=== PATIENT | male | born 1990 | race Caucasian/White ===

== ENCOUNTER 2018-09-19 20:16 | Inpatient (IN) | payer BC, OTHER ==
[~2018-09-19] VITALS: Ht 180.3 cm; Wt 61.7 kg
[~2018-09-19 20:16] MED LIST: INSU100I17; INSU100I18
[2018-09-19] MEDS ORDERED: IV NORMAL SALINE 1000ML BAG 1,000 ML IV ONE ×2 (20:45→21:30)
[2018-09-19 21:10] LABS: BASO # 0.1 x10^3/uL (0.0-0.2); BASO % 0 % (0-3); EOS # 0.2 x10^3/uL (0.0-0.7); EOS % 1 % (0-3); HEMATOCRIT 50.1 % (39.0-53.0); LYMPH % 17 % (24-48); MEAN CORPUSCULAR HEMOGLOBIN 31 pg (25-35); MEAN CORPUSCULAR HGB CONC 34 g/dL (31-37); MEAN CORPUSCULAR VOLUME 90 fL (79-100); MONO # 1.2 x10^3/uL (0.0-1.1); MONO % 7 % (0-9); NEUT # 13.2 x10^3/uL (1.8-7.7); NEUT % 75 % (31-73); PLATELET COUNT 379 x10^3/uL (140-400); RED BLOOD COUNT 5.54 x10^6/uL (4.30-5.70); RED CELL DISTRIBUTION WIDTH 13.2 % (11.5-14.5); WHITE BLOOD COUNT 17.7 x10^3/uL (4.0-11.0)
[2018-09-19] MEDS ORDERED: FAMOTIDINE 20 MG/2 ML VIAL IVP ONE (21:15)
[2018-09-19] MEDS ORDERED: ONDANSETRON PF 4 MG/2 ML VIAL. IV ONE (21:15)
[2018-09-19] MEDS ORDERED: KETOROLAC 15 MG/ML VIAL. IV ONE (21:30)
[2018-09-19] MEDS ORDERED: INSULIN REGULAR 100 UNIT/ML 3ML VIAL. SQ ONE (21:30)
[2018-09-19 21:32] LABS: ALBUMIN 4.4 g/dL (3.4-5.0); ALBUMIN/GLOBULIN RATIO 1.5 (1.0-1.7); GFR 89.6; MAGNESIUM 1.8 mg/dL (1.8-2.4); POTASSIUM 5.2 mmol/L (3.5-5.1); TOTAL BILIRUBIN 0.5 mg/dL (0.2-1.0); TOTAL PROTEIN 7.3 g/dL (6.4-8.2)
[2018-09-19] MEDS ORDERED: IV 1/2 NORMAL SALINE 1,000 ML IV SCH (22:00)
[2018-09-19] MEDS ORDERED: ONDANSETRON PF 4 MG/2 ML VIAL. IV PRN (22:00)
[2018-09-19] MEDS ORDERED: POTASSIUM CHLORIDE 10MEQ 100 ML IV PRN ×3 (22:00)
[2018-09-19] MEDS ORDERED: INSULIN REGULAR VIAL 150 UNIT in 0.9 % SODIUM CHLORIDE 150ML 150 ML IV PRN (22:00)
--- NOTE | 2018-09-19 22:04 | PHYS DOC ---
Past Medical History Past Medical History: Diabetes-Type I Past Surgical History: Tonsillectomy Smoking: Cigarettes, 1 Pack Per Day Alcohol Use: Occasionally Drug Use: None Adult General Chief Complaint Chief Complaint: BLOOD SUGAR PROBLEM HPI HPI Mr. Cortes is a 28yo M w/ PMH significant for T1DM presents to the ED due to 1 day of generalized fatigue secondary to elevated blood sugar checked w/ relative's at-home glucose monitor. Admits to poor insulin management due to lack of insurance coverage for at-home glucose monitoring, but has recently obtained insurance through his . Last at-home insulin medication was taken at bedtime last night; has not taken insulin today due to not eating even though the patient admits to consuming an entire can of chicken noodle soup, which was later vomited up w/o visible blood in vomitus. Reports dry mouth, diarrhea, and 8/10 PHAN. Denies SOA, CP, UE/LE numbness or tingling b/l. Review of Systems Review of Systems Constitutional: Reports generalized fatigue. Denies fever or chills Eyes: Denies redness or eye pain HENT: Denies nasal congestion or sore throat Respiratory: Denies cough or shortness of breath Cardiovascular: Denies chest pain or palpitations GI: Reports nausea, vomiting, diarrhea, and abdominal pain. Denies hematochezia or constipation. : Reports polyuria. Denies dysuria or hematuria Musculoskeletal: Denies back pain or joint pain Integument: Denies rash or skin lesions Neurologic: Reports severe headache. Denies focal weakness or sensory changes Complete systems were reviewed and found to be within normal limits, except as documented in this note. Current Medications Current Medications Current Medications Medications (Trade) Dose Ordered Sig/Gwyn Start Time Stop Time Status Last Admin Dose Admin Dextrose/Sodium Chloride 1,000 ml @ 250 mls/hr Q4H 09/19/18 22:00 09/19/18 23:38 250 MLS/HR Famotidine (Pepcid Vial) 20 mg 1X ONCE 09/19/18 21:15 09/19/18 21:16 DC 09/19/18 21:07 20 MG Insulin Human Regular (HumuLIN R VIAL) 6 unit 1X ONCE 09/19/18 21:30 09/19/18 21:31 DC 09/19/18 21:42 6 UNIT Insulin Human Regular 150 unit/ Sodium Chloride 151.5 ml @ 0 mls/hr CONT PRN PRN 09/19/18 22:00 09/19/18 23:46 3.7 MLS/HR Ketorolac Tromethamine (Toradol 15mg Vial) 15 mg 1X ONCE 09/19/18 21:30 09/19/18 21:31 DC 09/19/18 21:39 15 MG Ondansetron HCl (Zofran) 4 mg PRN Q8HRS PRN 09/19/18 22:00 09/20/18 21:59 Potassium Chloride/Water 100 ml @ 100 mls/hr PRN Q1HR PRN 09/19/18 22:00 Sodium Chloride 1,000 ml @ 250 mls/hr Q4H 09/19/18 22:00 09/19/18 22:53 DC Allergies Allergies Allergies Coded Allergies Type Severity Reaction Last Updated Verified Penicillins Allergy Unknown 05/18/13 Yes Physical Exam Physical Exam Constitutional: quiet, thin, otherwise well developed, mild acute distress, non- toxic appearance HENT: Normocephalic, atraumatic, oropharynx dry, ketonic breathe appreciated Eyes: PERRL, EOMI, conjunctiva normal, no discharge Neck: no tenderness, supple Cardiovascular: Heart regular rate and rhythm w/o gallops, rubs, or murmurs. UE radial pulses intact 2/4 b/l. UE cap refill prolonged at ~3sec. Lungs & Thorax: CTAB and throughout w/o wheezing Abdomen: soft, non-distended, mild tenderness to palpation in all 4 quadrants, bowel sounds heard in all 4 quadrants, no ecchymosis Skin: cool, dry, no erythema, no rash Back: No tenderness, no CVA tenderness Extremities: No tenderness, no edema Neurologic: Alert and oriented X 3, normal motor function, normal sensory function, no focal deficits noted Psychologic: Affect normal, judgement normal, mood normal Current Patient Data Vital Signs Vital Signs Date Time Temp Pulse Resp B/P (MAP) Pulse Ox O2 Delivery O2 Flow Rate FiO2 09/19/18 21:38 86 19 123/74 (90) 100 Room Air 09/19/18 20:35 98.1 98.1 Lab Values Laboratory Tests Test 09/19/18 20:42 09/19/18 21:00 Glucose (Fingerstick) 278 mg/dL (70-99) H White Blood Count 17.7 x10^3/uL (4.0-11.0) H Red Blood Count 5.54 x10^6/uL (4.30-5.70) Hemoglobin 17.0 g/dL (13.0-17.5) Hematocrit 50.1 % (39.0-53.0) Mean Corpuscular Volume 90 fL (79-100) Mean Corpuscular Hemoglobin 31 pg (25-35) Mean Corpuscular Hemoglobin Concent 34 g/dL (31-37) Red Cell Distribution Width 13.2 % (11.5-14.5) Platelet Count 379 x10^3/uL (140-400) Neutrophils (%) (Auto) 75 % (31-73) H Lymphocytes (%) (Auto) 17 % (24-48) L Monocytes (%) (Auto) 7 % (0-9) Eosinophils (%) (Auto) 1 % (0-3) Basophils (%) (Auto) 0 % (0-3) Neutrophils # (Auto) 13.2 x10^3/uL (1.8-7.7) H Lymphocytes # (Auto) 3.0 x10^3/uL (1.0-4.8) Monocytes # (Auto) 1.2 x10^3/uL (0.0-1.1) H Eosinophils # (Auto) 0.2 x10^3/uL (0.0-0.7) Basophils # (Auto) 0.1 x10^3/uL (0.0-0.2) Sodium Level 135 mmol/L (136-145) L Potassium Level 5.2 mmol/L (3.5-5.1) H Chloride Level 99 mmol/L (98-107) Carbon Dioxide Level 7 mmol/L (21-32) *L Anion Gap 29 (6-14) H Blood Urea Nitrogen 12 mg/dL (8-26) Creatinine 1.0 mg/dL (0.7-1.3) Estimated GFR (Cockcroft-Gault) 89.6 BUN/Creatinine Ratio 12 (6-20) Glucose Level 295 mg/dL (70-99) H Calcium Level 9.0 mg/dL (8.5-10.1) Magnesium Level 1.8 mg/dL (1.8-2.4) Total Bilirubin 0.5 mg/dL (0.2-1.0) Aspartate Amino Transferase (AST) 21 U/L (15-37) Alanine Aminotransferase (ALT) 42 U/L (16-63) Alkaline Phosphatase 116 U/L (46-116) Total Protein 7.3 g/dL (6.4-8.2) Albumin 4.4 g/dL (3.4-5.0) Albumin/Globulin Ratio 1.5 (1.0-1.7) Lipase 74 U/L (73-393) Acetone Level Sm pos (NEG) Laboratory Tests 09/19/18 21:00 Laboratory Tests 09/19/18 21:00 EKG EKG [] Radiology/Procedures Radiology/Procedures [] Course & Med Decision Making Course & Med Decision Making Pertinent Labs studies reviewed. (See chart for details) Patient presented w/ generalized fatigue secondary to elevated glucose concerning for DKA. Acetone was mildly elevated w/ glucose of 278. 2L of NS administered in ED along with odansetron and pepcid and 6 units of SQ insulin. Patient requiring admission for further evaluation and treatment. Discussed with Dr. Ahn (hospitalist) who is in agreement with admission. Discussed findings and plan with patient and family, who acknowledge understanding and agreement. Dragon Disclaimer Dragon Disclaimer This electronic medical record was generated, in whole or in part, using a voice recognition dictation system. Departure Departure Impression: Primary Impression: DKA (diabetic ketoacidoses) Disposition: ADMITTED INPATIENT Admitting Physician: GARRET (Jimy) Condition: GUARDED Referrals: JEFFREY YI MD (PCP) Critical Care Time Critical care time was 30 minutes which includes time at bedside, spent in discussion of patient's care with specialists and/or family members, with interpretation of laboratory and/or radiological studies and is exclusive of procedures. Problem Qualifiers Primary Impression: DKA (diabetic ketoacidoses) Diabetes mellitus type: type 1 Diabetes mellitus complication detail: without coma Qualified Codes: E10.10 - Type 1 diabetes mellitus with keto acidosis without coma JOZEF FINNEGAN DO Sep 19, 2018 22:04
[2018-09-19 23:27] LABS: BASE EXCESS COOX -22 mmol/L (-3-3); HCO3 COOX 5 mmol/L (21-28); METHEMOGLOBIN 0.4 % (0.0-1.9); PO2 COOX 129 mmHg (85-108); SAT O2 COOX 98 % (92-99)
[2018-09-19 23:27] LABS: BLOOD UREA NITROGEN 12 mg/dL (8-26); CALCIUM 7.9 mg/dL (8.5-10.1); CHLORIDE 105 mmol/L (98-107); CREATININE 0.8 mg/dL (0.7-1.3); GLUCOSE 246 mg/dL (70-99); POTASSIUM 4.8 mmol/L (3.5-5.1); SODIUM 137 mmol/L (136-145)
[2018-09-19 23:30] LABS: PCO2 COOX < 15 mmHg (35-46)
[2018-09-19 23:32] LABS: ANION GAP 27 (6-14); CARBON DIOXIDE < 5 mmol/L (21-32)
[2018-09-19] MEDS: IV DEXTROSE 5 %-0.45 % NACL 1,000 ML IV SCH (23:38)
[2018-09-19 23:53] LABS: BILIRUBIN,URINE NEGATIVE (NEG); CLARITY,URINE CLEAR; COLOR,URINE YELLOW; NITRITE,URINE NEGATIVE (NEG); PROTEIN,URINE 100 mg/dL (NEG-TRACE); UROBILINOGEN,URINE 0.2 mg/dL (0.2 mg/dL)
[2018-09-19 23:57] LABS: SQUAMOUS EPITHELIAL CELL,UR OCC /LPF
[2018-09-19 23:58] LABS: AMORPHOUS SEDIMENT,UR PRESENT /HPF; BACTERIA,URINE 0 /HPF (0-FEW); GRANULAR CASTS,URINE FEW /HPF; RBC,URINE 0 /HPF (0-2); WBC,URINE OCC /HPF (0-4)
[2018-09-20] VITALS (19 sets, daily range): BP systolic 61–119; BP diastolic 54–75
[2018-09-20] MEDS: IV DEXTROSE 5 %-0.45 % NACL 1,000 ML IV SCH ×5 (02:00→18:00)
[2018-09-20] MEDS: IV NORMAL SALINE 1000ML BAG 1,000 ML IV SCH ×5 (02:00→18:00)
[2018-09-20] MEDS: POTASSIUM CHLORIDE 10MEQ 100 ML IV SCH ×6 (02:32→08:51)
[2018-09-20 05:18] LABS: CALCIUM 8.3 mg/dL (8.5-10.1); CREATININE 0.9 mg/dL (0.7-1.3); GFR 101.2; MAGNESIUM 1.7 mg/dL (1.8-2.4); PHOSPHORUS 2.6 mg/dL (2.6-4.7); POTASSIUM 3.7 mmol/L (3.5-5.1)
[2018-09-20] MEDS ORDERED: MAGNESIUM SULFATE 4GM 100 ML IV ONE (06:30)
[2018-09-20] MEDS: IV DEXTROSE 5% - 0.9 % NACL 1,000 ML IV SCH ×4 (06:41→18:14)
[2018-09-20 11:47] LABS: ALBUMIN 2.8 g/dL (3.4-5.0); ALBUMIN/GLOBULIN RATIO 1.2 (1.0-1.7); ALK PHOS 78 U/L (46-116); ALT (SGPT) 18 U/L (16-63); ANION GAP 11 (6-14); BLOOD UREA NITROGEN 8 mg/dL (8-26); BUN/CREATININE RATIO 13 (6-20); CALCIUM 7.9 mg/dL (8.5-10.1); CARBON DIOXIDE 19 mmol/L (21-32); CHLORIDE 112 mmol/L (98-107); CREATININE 0.6 mg/dL (0.7-1.3); GFR 161.6; GLUCOSE 219 mg/dL (70-99); MAGNESIUM 2.3 mg/dL (1.8-2.4); PHOSPHORUS 2.5 mg/dL (2.6-4.7); POTASSIUM 3.4 mmol/L (3.5-5.1); SODIUM 142 mmol/L (136-145); TOTAL BILIRUBIN 0.2 mg/dL (0.2-1.0); TOTAL PROTEIN 5.1 g/dL (6.4-8.2)
[2018-09-20 12:05] LABS: AST (SGOT) < 5 U/L (15-37)
--- NOTE | 2018-09-20 12:57 | PDOC ---
[employer] PROGRESS NOTE Chief Complaint Chief Complaint DKA Fatigue secondary to elevated blood sugar Blood in vomitus TIDM History of Present Illness History of Present Illness 09/20/18 Pt seen in ICU VSS Potassium trending down (5.2 09/19, 3.7 09/20) Pt sitting up in bed DW RN Vitals/I&O Vitals/I&O: Vital Signs Date Time Temp Pulse Resp B/P (MAP) Pulse Ox O2 Delivery O2 Flow Rate FiO2 09/20/18 09:00 74 11 95/57 (70) 97 Room Air 09/20/18 04:00 98.7 98.7 I & O 09/19/18 09/19/18 09/20/18 14:59 22:59 06:59 Intake Total 2000 ml 2615.3 ml Output Total 500 ml Balance 2000 ml 2115.3 ml Physical Exam General: Alert, No acute distress Heart: Regular rate, No murmurs Lungs: Clear Abdomen: Normal bowel sounds, No hepatosplenomegaly Extremities: No edema, Normal pulses Skin: No rashes, No significant lesion Labs Labs: Laboratory Tests Test 09/19/18 20:42 09/19/18 21:00 09/19/18 22:28 09/19/18 23:08 Glucose (Fingerstick) 278 mg/dL (70-99) 236 mg/dL (70-99) White Blood Count 17.7 x10^3/uL (4.0-11.0) Red Blood Count 5.54 x10^6/uL (4.30-5.70) Hemoglobin 17.0 g/dL (13.0-17.5) Hematocrit 50.1 % (39.0-53.0) Mean Corpuscular Volume 90 fL (79-100) Mean Corpuscular Hemoglobin 31 pg (25-35) Mean Corpuscular Hemoglobin Concent 34 g/dL (31-37) Red Cell Distribution Width 13.2 % (11.5-14.5) Platelet Count 379 x10^3/uL (140-400) Neutrophils (%) (Auto) 75 % (31-73) Lymphocytes (%) (Auto) 17 % (24-48) Monocytes (%) (Auto) 7 % (0-9) Eosinophils (%) (Auto) 1 % (0-3) Basophils (%) (Auto) 0 % (0-3) Neutrophils # (Auto) 13.2 x10^3/uL (1.8-7.7) Lymphocytes # (Auto) 3.0 x10^3/uL (1.0-4.8) Monocytes # (Auto) 1.2 x10^3/uL (0.0-1.1) Eosinophils # (Auto) 0.2 x10^3/uL (0.0-0.7) Basophils # (Auto) 0.1 x10^3/uL (0.0-0.2) Sodium Level 135 mmol/L (136-145) 137 mmol/L (136-145) Potassium Level 5.2 mmol/L (3.5-5.1) 4.8 mmol/L (3.5-5.1) Chloride Level 99 mmol/L (98-107) 105 mmol/L (98-107) Carbon Dioxide Level 7 mmol/L (21-32) < 5 mmol/L (21-32) Anion Gap 29 (6-14) 27 (6-14) Blood Urea Nitrogen 12 mg/dL (8-26) 12 mg/dL (8-26) Creatinine 1.0 mg/dL (0.7-1.3) 0.8 mg/dL (0.7-1.3) Estimated GFR (Cockcroft-Gault) 89.6 116.0 BUN/Creatinine Ratio 12 (6-20) Glucose Level 295 mg/dL (70-99) 246 mg/dL (70-99) Calcium Level 9.0 mg/dL (8.5-10.1) 7.9 mg/dL (8.5-10.1) Magnesium Level 1.8 mg/dL (1.8-2.4) Total Bilirubin 0.5 mg/dL (0.2-1.0) Aspartate Amino Transf (AST/SGOT) 21 U/L (15-37) Alanine Aminotransferase (ALT/SGPT) 42 U/L (16-63) Alkaline Phosphatase 116 U/L (46-116) Total Protein 7.3 g/dL (6.4-8.2) Albumin 4.4 g/dL (3.4-5.0) Albumin/Globulin Ratio 1.5 (1.0-1.7) Lipase 74 U/L (73-393) Acetone Level Sm pos (NEG) Test 09/19/18 23:15 09/19/18 23:25 09/20/18 00:55 09/20/18 02:00 Urine Collection Type Unknown Urine Color Yellow Urine Clarity Clear Urine pH 5.0 Urine Specific [place] 1.025 Urine Protein 100 mg/dL (NEG-TRACE) Urine Glucose (UA) >=1000 mg/dL (NEG) Urine Ketones (Stick) >=80 mg/dL (NEG) Urine Blood Trace (NEG) Urine Nitrite Negative (NEG) Urine Bilirubin Negative (NEG) Urine Urobilinogen Dipstick 0.2 mg/dL (0.2 mg/dL) Urine Leukocyte Esterase Negative (NEG) Urine RBC 0 /HPF (0-2) Urine WBC Occ /HPF (0-4) Urine Squamous Epithelial Cells Occ /LPF Urine Amorphous Sediment Present /HPF Urine Bacteria 0 /HPF (0-FEW) Urine Granular Casts Few /HPF Urine Mucus Mod /LPF O2 Saturation 98 % (92-99) Arterial Blood pH 7.13 (7.35-7.45) Arterial Blood pCO2 at Patient Temp < 15 mmHg (35-46) Arterial Blood pO2 at Patient Temp 129 mmHg (85-108) Arterial Blood HCO3 5 mmol/L (21-28) Arterial Blood Base Excess -22 mmol/L (-3-3) Oxyhemoglobin 97.0 % Methemoglobin 0.4 % (0.0-1.9) Carbon Monoxide, Quantitative 0.3 % (0.0-1.9) FiO2 21 Glucose (Fingerstick) 237 mg/dL (70-99) 281 mg/dL (70-99) Test 09/20/18 03:01 09/20/18 04:05 09/20/18 04:09 09/20/18 05:14 Glucose (Fingerstick) 295 mg/dL (70-99) 265 mg/dL (70-99) 251 mg/dL (70-99) Sodium Level 136 mmol/L (136-145) Potassium Level 3.7 mmol/L (3.5-5.1) Chloride Level 107 mmol/L (98-107) Carbon Dioxide Level 12 mmol/L (21-32) Anion Gap 17 (6-14) Blood Urea Nitrogen 10 mg/dL (8-26) Creatinine 0.9 mg/dL (0.7-1.3) Estimated GFR (Cockcroft-Gault) 101.2 Glucose Level 293 mg/dL (70-99) Calcium Level 8.3 mg/dL (8.5-10.1) Phosphorus Level 2.6 mg/dL (2.6-4.7) Magnesium Level 1.7 mg/dL (1.8-2.4) Test 09/20/18 06:25 09/20/18 07:35 09/20/18 08:48 09/20/18 11:20 Glucose (Fingerstick) 170 mg/dL (70-99) 163 mg/dL (70-99) 171 mg/dL (70-99) Sodium Level 142 mmol/L (136-145) Potassium Level 3.4 mmol/L (3.5-5.1) Chloride Level 112 mmol/L (98-107) Carbon Dioxide Level 19 mmol/L (21-32) Anion Gap 11 (6-14) Blood Urea Nitrogen 8 mg/dL (8-26) Creatinine 0.6 mg/dL (0.7-1.3) Estimated GFR (Cockcroft-Gault) 161.6 BUN/Creatinine Ratio 13 (6-20) Glucose Level 219 mg/dL (70-99) Calcium Level 7.9 mg/dL (8.5-10.1) Phosphorus Level 2.5 mg/dL (2.6-4.7) Magnesium Level 2.3 mg/dL (1.8-2.4) Total Bilirubin 0.2 mg/dL (0.2-1.0) Aspartate Amino Transf (AST/SGOT) < 5 U/L (15-37) Alanine Aminotransferase (ALT/SGPT) 18 U/L (16-63) Alkaline Phosphatase 78 U/L (46-116) Total Protein 5.1 g/dL (6.4-8.2) Albumin 2.8 g/dL (3.4-5.0) Albumin/Globulin Ratio 1.2 (1.0-1.7) Review of Systems Review of Systems: CO fatigue CO PHAN Assessment and Plan Assessmemt and Plan 09/20/18 Assessment DKA Fatigue secondary to elevated blood sugar Blood in vomitus TIDM Plan ICU monitoring IV fluids IV insulin Follow anion gap Full code Comment Review of Relevant I have reviewed the following items cinthia (where applicable) has been applied. Medications: Current Medications Medications (Trade) Dose Ordered Sig/Gwyn Route PRN Reason Start Time Stop Time Status Last Admin Dose Admin Ondansetron HCl (Zofran) 4 mg 1X ONCE IV 09/19/18 21:15 09/19/18 21:16 DC 09/19/18 21:05 Famotidine (Pepcid Vial) 20 mg 1X ONCE IVP 09/19/18 21:15 09/19/18 21:16 DC 09/19/18 21:07 Sodium Chloride 1,000 ml @ 1,000 mls/hr 1X ONCE IV 09/19/18 20:45 09/19/18 21:44 DC 09/19/18 21:09 Ketorolac Tromethamine (Toradol 15mg Vial) 15 mg 1X ONCE IV 09/19/18 21:30 09/19/18 21:31 DC 09/19/18 21:39 Sodium Chloride 1,000 ml @ 1,000 mls/hr 1X ONCE IV 09/19/18 21:30 09/19/18 22:29 DC 09/19/18 21:44 Insulin Human Regular (HumuLIN R VIAL) 6 unit 1X ONCE SQ 09/19/18 21:30 09/19/18 21:31 DC 09/19/18 21:42 Dextrose/Sodium Chloride 1,000 ml @ 250 mls/hr Q4H IV 09/19/18 22:00 09/19/18 23:38 Insulin Human Regular 150 unit/ Sodium Chloride 151.5 ml @ 0 mls/hr CONT PRN PRN IV PER PROTOCOL 09/19/18 22:00 09/19/18 23:46 Ondansetron HCl (Zofran) 4 mg PRN Q8HRS PRN IV NAUSEA/VOMITING 09/19/18 22:00 09/20/18 21:59 09/20/18 06:22 Potassium Chloride/Water 100 ml @ 100 mls/hr Q1H IV 09/20/18 01:30 09/20/18 03:29 DC 09/20/18 05:12 Sodium Chloride 1,000 ml @ 250 mls/hr Q4H IV 09/20/18 02:00 09/20/18 02:00 Potassium Chloride/Water 100 ml @ 100 mls/hr Q1H IV 09/20/18 06:30 09/20/18 10:29 DC 09/20/18 08:51 Magnesium Sulfate/ Dextrose 100 ml @ 25 mls/hr 1X ONCE IV 09/20/18 06:30 09/20/18 10:29 DC 09/20/18 07:14 Dextrose/Sodium Chloride 1,000 ml @ 250 mls/hr Q4H IV 09/20/18 06:30 09/20/18 06:41 COURTNEY BROWN III DO Sep 20, 2018 12:57
[2018-09-20] MEDS ORDERED: DEXTROSE 50% 25 GM / 50ML DISP.SYRIN. IV PRN (13:15)
[2018-09-20] MEDS: INSULIN LISPRO 300 UNITS/3 ML INSULN.PEN. SQ SCH ×2 (13:23→17:00)
--- NOTE | 2018-09-20 16:04 | NUR ---
SS following for discharge planning. SS reviewed pt chart. Pt is from home with spouse and is currently on room air. No discharge needs noted at this time. SS will continue to follow for discharge planning.
[2018-09-20] MEDS ORDERED: ACETAMINOPHEN 325 MG TABLET. PO PRN (17:30)
[2018-09-20] MEDS ORDERED: INSULIN GLARGINE 300 UNITS/3 ML INSULN.PEN. SQ SCH (21:00)
[2018-09-20] MEDS ORDERED: INSULIN LISPRO 300 UNITS/3 ML INSULN.PEN. SQ ONE (21:30)
[2018-09-21 03:00] VITALS: BP 111/70
[2018-09-21 07:00] VITALS: BP 115/69
[2018-09-21] MEDS: INSULIN LISPRO 300 UNITS/3 ML INSULN.PEN. SQ SCH ×4 (08:00→11:59)
[2018-09-21 08:04] LABS: BASO % 0 % (0-3); EOS # 0.2 x10^3/uL (0.0-0.7); EOS % 3 % (0-3); HEMATOCRIT 39.1 % (39.0-53.0); HEMOGLOBIN 13.3 g/dL (13.0-17.5); LYMPH # 3.2 x10^3/uL (1.0-4.8); LYMPH % 47 % (24-48); MEAN CORPUSCULAR HEMOGLOBIN 30 pg (25-35); MEAN CORPUSCULAR HGB CONC 34 g/dL (31-37); MEAN CORPUSCULAR VOLUME 89 fL (79-100); MONO # 0.7 x10^3/uL (0.0-1.1); MONO % 10 % (0-9); NEUT # 2.7 x10^3/uL (1.8-7.7); NEUT % 40 % (31-73); PLATELET COUNT 248 x10^3/uL (140-400); RED CELL DISTRIBUTION WIDTH 13.8 % (11.5-14.5); WHITE BLOOD COUNT 6.8 x10^3/uL (4.0-11.0)
--- NOTE | 2018-09-21 08:47 | NUR ---
IP: Pt is mrsa screen + requiring contact precautions.
[2018-09-21 09:18] LABS: CALCIUM 8.1 mg/dL (8.5-10.1); CREATININE 0.5 mg/dL (0.7-1.3); GFR 199.5; POTASSIUM 3.2 mmol/L (3.5-5.1)
[2018-09-21] MEDS ORDERED: INSU100I13 SQ (09:41)
[2018-09-21] MEDS ORDERED: INSU100I11 SQ (09:41)
[2018-09-21 11:00] VITALS: BP 92/58
--- NOTE | 2018-09-21 11:40 | PDOC3 ---
Discharge Summary Visit Information Date of Admission: Sep 19, 2018 Date of Discharge: Sep 21, 2018 Admitting Diagnosis Comment: status post DKA Severe metabolic acidosis secondary to above Type I DM Brief Hospital Course Allergies Allergies Coded Allergies Type Severity Reaction Last Updated Verified I S O L A T I O N *CONTACT* Allergy Unknown 09/21/18 Yes Penicillins Allergy Unknown 05/18/13 Yes Vital Signs Vital Signs Date Time Temp Pulse Resp B/P (MAP) Pulse Ox O2 Delivery O2 Flow Rate FiO2 09/21/18 08:00 Room Air 09/21/18 07:00 98.4 69 18 115/69 (84) 99 98.4 Lab Results Laboratory Tests Test 09/19/18 20:42 09/19/18 21:00 09/19/18 22:28 09/19/18 23:08 Glucose (Fingerstick) 278 mg/dL (70-99) 236 mg/dL (70-99) White Blood Count 17.7 x10^3/uL (4.0-11.0) Red Blood Count 5.54 x10^6/uL (4.30-5.70) Hemoglobin 17.0 g/dL (13.0-17.5) Hematocrit 50.1 % (39.0-53.0) Mean Corpuscular Volume 90 fL (79-100) Mean Corpuscular Hemoglobin 31 pg (25-35) Mean Corpuscular Hemoglobin Concent 34 g/dL (31-37) Red Cell Distribution Width 13.2 % (11.5-14.5) Platelet Count 379 x10^3/uL (140-400) Neutrophils (%) (Auto) 75 % (31-73) Lymphocytes (%) (Auto) 17 % (24-48) Monocytes (%) (Auto) 7 % (0-9) Eosinophils (%) (Auto) 1 % (0-3) Basophils (%) (Auto) 0 % (0-3) Neutrophils # (Auto) 13.2 x10^3/uL (1.8-7.7) Lymphocytes # (Auto) 3.0 x10^3/uL (1.0-4.8) Monocytes # (Auto) 1.2 x10^3/uL (0.0-1.1) Eosinophils # (Auto) 0.2 x10^3/uL (0.0-0.7) Basophils # (Auto) 0.1 x10^3/uL (0.0-0.2) Sodium Level 135 mmol/L (136-145) 137 mmol/L (136-145) Potassium Level 5.2 mmol/L (3.5-5.1) 4.8 mmol/L (3.5-5.1) Chloride Level 99 mmol/L (98-107) 105 mmol/L (98-107) Carbon Dioxide Level 7 mmol/L (21-32) < 5 mmol/L (21-32) Anion Gap 29 (6-14) 27 (6-14) Blood Urea Nitrogen 12 mg/dL (8-26) 12 mg/dL (8-26) Creatinine 1.0 mg/dL (0.7-1.3) 0.8 mg/dL (0.7-1.3) Estimated GFR (Cockcroft-Gault) 89.6 116.0 BUN/Creatinine Ratio 12 (6-20) Glucose Level 295 mg/dL (70-99) 246 mg/dL (70-99) Calcium Level 9.0 mg/dL (8.5-10.1) 7.9 mg/dL (8.5-10.1) Magnesium Level 1.8 mg/dL (1.8-2.4) Total Bilirubin 0.5 mg/dL (0.2-1.0) Aspartate Amino Transf (AST/SGOT) 21 U/L (15-37) Alanine Aminotransferase (ALT/SGPT) 42 U/L (16-63) Alkaline Phosphatase 116 U/L (46-116) Total Protein 7.3 g/dL (6.4-8.2) Albumin 4.4 g/dL (3.4-5.0) Albumin/Globulin Ratio 1.5 (1.0-1.7) Lipase 74 U/L (73-393) Acetone Level Sm pos (NEG) Test 09/19/18 23:15 09/19/18 23:25 09/20/18 00:55 09/20/18 02:00 Urine Collection Type Unknown Urine Color Yellow Urine Clarity Clear Urine pH 5.0 Urine Specific [place] 1.025 Urine Protein 100 mg/dL (NEG-TRACE) Urine Glucose (UA) >=1000 mg/dL (NEG) Urine Ketones (Stick) >=80 mg/dL (NEG) Urine Blood Trace (NEG) Urine Nitrite Negative (NEG) Urine Bilirubin Negative (NEG) Urine Urobilinogen Dipstick 0.2 mg/dL (0.2 mg/dL) Urine Leukocyte Esterase Negative (NEG) Urine RBC 0 /HPF (0-2) Urine WBC Occ /HPF (0-4) Urine Squamous Epithelial Cells Occ /LPF Urine Amorphous Sediment Present /HPF Urine Bacteria 0 /HPF (0-FEW) Urine Granular Casts Few /HPF Urine Mucus Mod /LPF O2 Saturation 98 % (92-99) Arterial Blood pH 7.13 (7.35-7.45) Arterial Blood pCO2 at Patient Temp < 15 mmHg (35-46) Arterial Blood pO2 at Patient Temp 129 mmHg (85-108) Arterial Blood HCO3 5 mmol/L (21-28) Arterial Blood Base Excess -22 mmol/L (-3-3) Oxyhemoglobin 97.0 % Methemoglobin 0.4 % (0.0-1.9) Carbon Monoxide, Quantitative 0.3 % (0.0-1.9) FiO2 21 Glucose (Fingerstick) 237 mg/dL (70-99) 281 mg/dL (70-99) Test 09/20/18 03:01 09/20/18 04:05 09/20/18 04:09 09/20/18 05:00 Glucose (Fingerstick) 295 mg/dL (70-99) 265 mg/dL (70-99) Sodium Level 136 mmol/L (136-145) Potassium Level 3.7 mmol/L (3.5-5.1) Chloride Level 107 mmol/L (98-107) Carbon Dioxide Level 12 mmol/L (21-32) Anion Gap 17 (6-14) Blood Urea Nitrogen 10 mg/dL (8-26) Creatinine 0.9 mg/dL (0.7-1.3) Estimated GFR (Cockcroft-Gault) 101.2 Glucose Level 293 mg/dL (70-99) Calcium Level 8.3 mg/dL (8.5-10.1) Phosphorus Level 2.6 mg/dL (2.6-4.7) Magnesium Level 1.7 mg/dL (1.8-2.4) Nasal Screen MRSA (PCR) Positive (Negative) Test 09/20/18 05:14 09/20/18 06:25 09/20/18 07:35 09/20/18 08:48 Glucose (Fingerstick) 251 mg/dL (70-99) 170 mg/dL (70-99) 163 mg/dL (70-99) 171 mg/dL (70-99) Test 09/20/18 09:57 09/20/18 11:07 09/20/18 11:20 09/20/18 12:40 Glucose (Fingerstick) 206 mg/dL (70-99) 190 mg/dL (70-99) 177 mg/dL (70-99) Sodium Level 142 mmol/L (136-145) Potassium Level 3.4 mmol/L (3.5-5.1) Chloride Level 112 mmol/L (98-107) Carbon Dioxide Level 19 mmol/L (21-32) Anion Gap 11 (6-14) Blood Urea Nitrogen 8 mg/dL (8-26) Creatinine 0.6 mg/dL (0.7-1.3) Estimated GFR (Cockcroft-Gault) 161.6 BUN/Creatinine Ratio 13 (6-20) Glucose Level 219 mg/dL (70-99) Calcium Level 7.9 mg/dL (8.5-10.1) Phosphorus Level 2.5 mg/dL (2.6-4.7) Magnesium Level 2.3 mg/dL (1.8-2.4) Total Bilirubin 0.2 mg/dL (0.2-1.0) Aspartate Amino Transf (AST/SGOT) < 5 U/L (15-37) Alanine Aminotransferase (ALT/SGPT) 18 U/L (16-63) Alkaline Phosphatase 78 U/L (46-116) Total Protein 5.1 g/dL (6.4-8.2) Albumin 2.8 g/dL (3.4-5.0) Albumin/Globulin Ratio 1.2 (1.0-1.7) Test 09/20/18 13:21 09/20/18 14:20 09/20/18 16:54 09/20/18 20:49 Glucose (Fingerstick) 169 mg/dL (70-99) 206 mg/dL (70-99) 125 mg/dL (70-99) 447 mg/dL (70-99) Test 09/20/18 22:35 09/21/18 06:35 09/21/18 07:55 Glucose (Fingerstick) 321 mg/dL (70-99) 132 mg/dL (70-99) White Blood Count 6.8 x10^3/uL (4.0-11.0) Red Blood Count 4.40 x10^6/uL (4.30-5.70) Hemoglobin 13.3 g/dL (13.0-17.5) Hematocrit 39.1 % (39.0-53.0) Mean Corpuscular Volume 89 fL (79-100) Mean Corpuscular Hemoglobin 30 pg (25-35) Mean Corpuscular Hemoglobin Concent 34 g/dL (31-37) Red Cell Distribution Width 13.8 % (11.5-14.5) Platelet Count 248 x10^3/uL (140-400) Neutrophils (%) (Auto) 40 % (31-73) Lymphocytes (%) (Auto) 47 % (24-48) Monocytes (%) (Auto) 10 % (0-9) Eosinophils (%) (Auto) 3 % (0-3) Basophils (%) (Auto) 0 % (0-3) Neutrophils # (Auto) 2.7 x10^3/uL (1.8-7.7) Lymphocytes # (Auto) 3.2 x10^3/uL (1.0-4.8) Monocytes # (Auto) 0.7 x10^3/uL (0.0-1.1) Eosinophils # (Auto) 0.2 x10^3/uL (0.0-0.7) Basophils # (Auto) 0.0 x10^3/uL (0.0-0.2) Sodium Level 146 mmol/L (136-145) Potassium Level 3.2 mmol/L (3.5-5.1) Chloride Level 112 mmol/L (98-107) Carbon Dioxide Level 25 mmol/L (21-32) Anion Gap 9 (6-14) Blood Urea Nitrogen 10 mg/dL (8-26) Creatinine 0.5 mg/dL (0.7-1.3) Estimated GFR (Cockcroft-Gault) 199.5 Glucose Level 149 mg/dL (70-99) Calcium Level 8.1 mg/dL (8.5-10.1) Laboratory Tests Test 09/20/18 12:40 09/20/18 13:21 09/20/18 14:20 09/20/18 16:54 Glucose (Fingerstick) 177 mg/dL (70-99) 169 mg/dL (70-99) 206 mg/dL (70-99) 125 mg/dL (70-99) Test 09/20/18 20:49 09/20/18 22:35 09/21/18 06:35 09/21/18 07:55 Glucose (Fingerstick) 447 mg/dL (70-99) 321 mg/dL (70-99) 132 mg/dL (70-99) White Blood Count 6.8 x10^3/uL (4.0-11.0) Red Blood Count 4.40 x10^6/uL (4.30-5.70) Hemoglobin 13.3 g/dL (13.0-17.5) Hematocrit 39.1 % (39.0-53.0) Mean Corpuscular Volume 89 fL (79-100) Mean Corpuscular Hemoglobin 30 pg (25-35) Mean Corpuscular Hemoglobin Concent 34 g/dL (31-37) Red Cell Distribution Width 13.8 % (11.5-14.5) Platelet Count 248 x10^3/uL (140-400) Neutrophils (%) (Auto) 40 % (31-73) Lymphocytes (%) (Auto) 47 % (24-48) Monocytes (%) (Auto) 10 % (0-9) Eosinophils (%) (Auto) 3 % (0-3) Basophils (%) (Auto) 0 % (0-3) Neutrophils # (Auto) 2.7 x10^3/uL (1.8-7.7) Lymphocytes # (Auto) 3.2 x10^3/uL (1.0-4.8) Monocytes # (Auto) 0.7 x10^3/uL (0.0-1.1) Eosinophils # (Auto) 0.2 x10^3/uL (0.0-0.7) Basophils # (Auto) 0.0 x10^3/uL (0.0-0.2) Sodium Level 146 mmol/L (136-145) Potassium Level 3.2 mmol/L (3.5-5.1) Chloride Level 112 mmol/L (98-107) Carbon Dioxide Level 25 mmol/L (21-32) Anion Gap 9 (6-14) Blood Urea Nitrogen 10 mg/dL (8-26) Creatinine 0.5 mg/dL (0.7-1.3) Estimated GFR (Cockcroft-Gault) 199.5 Glucose Level 149 mg/dL (70-99) Calcium Level 8.1 mg/dL (8.5-10.1) Brief Hospital Course Mr. Cortes is a 28 old male type I diabetic on 15 daily at bedtime and I'm unsure of his mealtime coverage - comes in in severe DKA with bicarbonate in the 1 figure numbers. ICU bed,DKA, protocol, insulin drip. Better after 2 midnights stay. The regimen that works for him in the hospital was 20 units daily at bedtime and 10 units 3 times a day lispro. We'll I send home on these with glucometer test strips , novofine needles etc. Discharge instructions follow-up PCP regarding type I DM meds dc < 30 Discharge Information Condition at Discharge: Improved, Stable Follow Up: Weeks (pcp 4 weeks re type 1 dm) Disposition/Orders: D/C to Home Scheduled Insulin Aspart (Novolog Flexpen) 100 Unit/1 Ml Insuln.pen, TID, (Reported) Entered as Reported by: GIBRAN QUIJANO on 05/18/131741 Last Action: Reviewed on 09/21/18939 by NADEEM YUN Insulin Detemir (Levemir Flexpen) 100 Unit/1 Ml Insuln.pen, HS, (Reported) Entered as Reported by: GIBRAN QUIJANO on 05/18/131741 Last Action: Reviewed on 09/21/18939 by NADEEM YUN Insulin Glargine,Hum.rec.anlog (Lantus Solostar) 100 Unit/1 Ml Insuln.pen, 20 UNITS SQ QHS for dm 1 for 30 Days Prescribed by: NADEEM YUN on 09/21/18940 Insulin Lispro (Humalog) 100 Unit/1 Ml Insuln.pen, 10 UNITS SQ TIDWMEALS for dm1 for 30 Days Prescribed by: NADEEM YUN on 09/21/18940 NADEEM YUN MD Sep 21, 2018 11:40
--- NOTE | 2018-09-21 13:13 | NUR ---
Pt left unit at approx 1305, discharge instructions given. Pt was accompanied by and children. Pt left via private vehicle, stable upon discharge.
== END 2018-09-21 13:10 | disposition home or self-care (01) | DRG 638 ==
LOC: ER 20:16 → 1 WEST ICU 22:05 → 5 SOUTH 09-20 16:30
PROVIDERS: ADMIT Internal Medicine; ATTEND Internal Medicine
DX: E10.10 Type 1 diabetes mellitus with ketoacidosis without coma (principal); K92.0 Hematemesis; Z79.4 Long term (current) use of insulin; Z87.891 Personal history of nicotine dependence
CPT/HCPCS: 36415; 36600; 80048; 80053; 81001; 82010; 82805; 82962; 83690; 83735; 83930; 84100; 85025; 87641; J1815; J1885; J2405; J3475; J3480; J3490; J7030; J7042; 99285-25

== ENCOUNTER 2019-04-08 10:31 | Inpatient (IN) | payer SELFPAY ==
[~2019-04-08] VITALS: Ht 180.3 cm; Wt 62.9 kg
[~2019-04-08 10:31] MED LIST changes: +INSU100I11 SQ; +INSU100I13 SQ
--- NOTE | 2019-04-08 11:37 | PHYS DOC ---
Past Medical History Past Medical History: Diabetes-Type I Past Surgical History: Tonsillectomy Smoking Status: Current Every Day Smoker Alcohol Use: Occasionally Drug Use: None Adult General Chief Complaint Chief Complaint: MULTIPLE COMPLAINTS HPI HPI Patient is a 29 year old male who presents with fatigue, nausea, vomiting. Patient history of type 1 diabetes, reports he has been doing okay taking his insulin during the day, however he has missed his evening dose the past few days. States he does not have a meter at home to test his blood sugars and has not been testing. States yesterday was his anniversary, they went out to eat, and then 0300 today he started to feel nauseous, vomiting. Denies EtOH use. States he has had some diarrhea as well. States fatigue. States some chest discomfort which started the same time. Denies abdominal pain. Denies visual changes. Review of Systems Review of Systems Constitutional: Denies fever or chills reports fatigue [] Eyes: Denies change in visual acuity, redness, or eye pain [] HENT: Denies nasal congestion or sore throat [] Respiratory: Denies cough or shortness of breath [] Cardiovascular: No additional information not addressed in HPI [] GI: Reports abdominal pain, nausea, vomiting, diarrhea. Denies bloody stools. [] : Denies dysuria or hematuria [] Musculoskeletal: Denies back pain or joint pain [] Integument: Denies rash or skin lesions [] Neurologic: Denies headache, focal weakness or sensory changes [] Endocrine: Denies polyuria or polydipsia [] All other systems were reviewed and found to be within normal limits, except as documented in this note. Current Medications Current Medications Current Medications Medications (Trade) Dose Ordered Sig/Gwyn Start Time Stop Time Status Last Admin Dose Admin Insulin Human Regular 100 ml @ 0 mls/hr CONT PRN PRN 04/08/19 12:30 04/08/19 13:48 DC 04/08/19 13:48 3.5 MLS/HR Ondansetron HCl (Zofran) 4 mg 1X ONCE 04/08/19 11:45 04/08/19 11:46 DC 04/08/19 12:07 4 MG Sodium Chloride 1,000 ml @ 1,000 mls/hr Q1H 04/08/19 12:23 04/08/19 13:22 DC 04/08/19 13:38 1,000 MLS/HR Allergies Allergies Allergies Coded Allergies Type Severity Reaction Last Updated Verified I S O L A T I O N *CONTACT* Allergy Unknown 09/21/18 Yes Penicillins Allergy Unknown 05/18/13 Yes Physical Exam Physical Exam Constitutional: Well developed, well nourished, appears uncomfortable, non-toxic appearance. [] HENT: Normocephalic, atraumatic, bilateral external ears normal, oropharynx moist, no oral exudates, nose normal. [] Eyes: PERRLA, EOMI, conjunctiva normal, no discharge. [] Neck: Normal range of motion, no tenderness, supple, no stridor. [] Cardiovascular:Heart rate regular and tachycardic rhythm, no murmur [] Lungs & Thorax: Bilateral breath sounds clear to auscultation [] Abdomen: Bowel sounds normal, soft, no tenderness, no masses, no pulsatile masses. [] Skin: Warm, dry, no erythema, no rash. [] Back: No tenderness, no CVA tenderness. [] Extremities: No tenderness, no cyanosis, no clubbing, ROM intact, no edema. [] Neurologic: Alert and oriented X 3, normal motor function, normal sensory func tion, no focal deficits noted. [] Psychologic: Affect normal, judgement normal, mood normal. [] Current Patient Data Vital Signs Vital Signs Date Time Temp Pulse Resp B/P (MAP) Pulse Ox O2 Delivery O2 Flow Rate FiO2 04/08/19 11:23 99.1 111 18 125/86 (99) 99 Room Air 99.1 Lab Values Laboratory Tests Test 04/08/19 10:34 04/08/19 11:31 Glucose (Fingerstick) 375 mg/dL (70-99) H White Blood Count 15.9 x10^3/uL (4.0-11.0) H Red Blood Count 5.25 x10^6/uL (4.30-5.70) Hemoglobin 15.5 g/dL (13.0-17.5) Hematocrit 45.9 % (39.0-53.0) Mean Corpuscular Volume 87 fL (79-100) Mean Corpuscular Hemoglobin 30 pg (25-35) Mean Corpuscular Hemoglobin Concent 34 g/dL (31-37) Red Cell Distribution Width 12.7 % (11.5-14.5) Platelet Count 376 x10^3/uL (140-400) Neutrophils (%) (Auto) 81 % (31-73) H Lymphocytes (%) (Auto) 12 % (24-48) L Monocytes (%) (Auto) 6 % (0-9) Eosinophils (%) (Auto) 1 % (0-3) Basophils (%) (Auto) 0 % (0-3) Neutrophils # (Auto) 13.0 x10^3/uL (1.8-7.7) H Lymphocytes # (Auto) 2.0 x10^3/uL (1.0-4.8) Monocytes # (Auto) 0.9 x10^3/uL (0.0-1.1) Eosinophils # (Auto) 0.1 x10^3/uL (0.0-0.7) Basophils # (Auto) 0.1 x10^3/uL (0.0-0.2) Segmented Neutrophils % 77 % (35-66) H Band Neutrophils % 1 % (0-9) Lymphocytes % 12 % (24-48) L Monocytes % 8 % (0-10) Eosinophils % 1 % (0-5) Basophils % 1 % (0-3) Platelet Estimate Adequate (ADEQUATE) Sodium Level 138 mmol/L (136-145) Potassium Level 5.3 mmol/L (3.5-5.1) H Chloride Level 101 mmol/L (98-107) Carbon Dioxide Level 14 mmol/L (21-32) L Anion Gap 23 (6-14) H Blood Urea Nitrogen 16 mg/dL (8-26) Creatinine 1.0 mg/dL (0.7-1.3) Estimated GFR (Cockcroft-Gault) 89.0 BUN/Creatinine Ratio 16 (6-20) Glucose Level 360 mg/dL (70-99) H Lactic Acid Level 1.0 mmol/L (0.4-2.0) Calcium Level 9.5 mg/dL (8.5-10.1) Magnesium Level 1.8 mg/dL (1.8-2.4) Total Bilirubin 0.5 mg/dL (0.2-1.0) Aspartate Amino Transferase (AST) 11 U/L (15-37) L Alanine Aminotransferase (ALT) 30 U/L (16-63) Alkaline Phosphatase 129 U/L (46-116) H Troponin I Quantitative < 0.017 ng/mL (0.000-0.055) Total Protein 7.0 g/dL (6.4-8.2) Albumin 4.2 g/dL (3.4-5.0) Albumin/Globulin Ratio 1.5 (1.0-1.7) Acetone Level Sm pos (NEG) Laboratory Tests 04/08/19 11:31 Laboratory Tests 04/08/19 11:31 EKG EKG [] Radiology/Procedures Radiology/Procedures no acute process [] Course & Med Decision Making Course & Med Decision Making Pertinent Labs and Imaging studies reviewed. (See chart for details) []Discussed evidence of DKA again with patient and family members. Discussed this with Dr. Jorgensen, agrees to admission, we'll start patient on DKA protocol. Dragon Disclaimer Dragon Disclaimer This electronic medical record was generated, in whole or in part, using a voice recognition dictation system. Departure Departure Impression: Primary Impression: DKA (diabetic ketoacidoses) Disposition: ADMITTED INPATIENT Admitting Physician: GARRET Condition: STABLE Referrals: JEFFREY YI MD (PCP) Problem Qualifiers Primary Impression: DKA (diabetic ketoacidoses) Diabetes mellitus type: type 1 Diabetes mellitus complication detail: without coma Qualified Codes: E10.10 - Type 1 diabetes mellitus with ketoacidosis without coma CLARITA REICH APRN Apr 08, 2019 11:37
[2019-04-08] MEDS ORDERED: ONDANSETRON PF 4 MG/2 ML VIAL. IVP ONE (11:45)
[2019-04-08] MEDS ORDERED: IV NORMAL SALINE 1000ML BAG 1,000 ML IV ONE (11:45)
[2019-04-08 11:49] LABS: BASO # 0.1 x10^3/uL (0.0-0.2); BASO % 0 % (0-3); EOS # 0.1 x10^3/uL (0.0-0.7); EOS % 1 % (0-3); HEMATOCRIT 45.9 % (39.0-53.0); HEMOGLOBIN 15.5 g/dL (13.0-17.5); LYMPH % 12 % (24-48); MEAN CORPUSCULAR HEMOGLOBIN 30 pg (25-35); MEAN CORPUSCULAR HGB CONC 34 g/dL (31-37); MEAN CORPUSCULAR VOLUME 87 fL (79-100); MONO # 0.9 x10^3/uL (0.0-1.1); MONO % 6 % (0-9); NEUT % 81 % (31-73); PLATELET COUNT 376 x10^3/uL (140-400); RED BLOOD COUNT 5.25 x10^6/uL (4.30-5.70); RED CELL DISTRIBUTION WIDTH 12.7 % (11.5-14.5); WHITE BLOOD COUNT 15.9 x10^3/uL (4.0-11.0)
[2019-04-08 12:02] LABS: CALCIUM 9.5 mg/dL (8.5-10.1); POTASSIUM 5.3 mmol/L (3.5-5.1)
[2019-04-08 12:07] LABS: ALBUMIN 4.2 g/dL (3.4-5.0); ALBUMIN/GLOBULIN RATIO 1.5 (1.0-1.7); MAGNESIUM 1.8 mg/dL (1.8-2.4); TOTAL BILIRUBIN 0.5 mg/dL (0.2-1.0)
[2019-04-08] MEDS ORDERED: IV NORMAL SALINE 1000ML BAG 1,000 ML IV SCH ×2 (12:23→13:22)
--- NOTE | 2019-04-08 12:29 | RAD ---
EXAM: AP View of the chest DATE: 04/08/2019 11:40 AM INDICATION: chest wall pain, nausea, vomiting COMPARISON: No Prior FINDINGS: The heart is not enlarged. Mediastinal and hilar contours are normal. No focal parenchymal airspace opacity. No pleural effusion or pneumothorax. IMPRESSION: 1. No radiographic evidence for acute cardiopulmonary process. Electronically signed by: Valentin Gasca MD (04/08/2019 12:26 PM) [id number]
[2019-04-08] MEDS ORDERED: INSULIN,REGULAR 100 UNIT DRIP 100 ML IV PRN (12:30)
--- NOTE | 2019-04-08 12:34 | PDOC1 ---
History and Physical Date of Admission Date of Admission DATE: 04/08/19 TIME: 12:33 Identification/Chief Complaint Chief Complaint LoriEN IN ER , 29 year old male who presents with fatigue, nausea, vomiting. Patient history of type 1 diabetes, reports he has been doing okay taking his insulin during the day, he has missed his evening dose the past few days. States he does not have a meter at home to test his blood sugars and has not been testing. yesterday was his anniversary, they went out to eat, and then 0300 today he started to feel nauseous, vomiting. HAD ON DRINK ETOH Past Medical History Past Medical History Past Medical History Past Medical History Past Medical History: Diabetes-Type I Past Surgical History: Tonsillectomy Smoking Status: Current Every Day Smoker Alcohol Use: Occasionally Drug Use: None FHX COPD Endocrine: Diabetes Family History Family History: Hypertension Social History Smoke: <1 pack per day ALCOHOL: occassional Drugs: None Current Medications Current Medications Current Medications Sodium Chloride 1,000 ml @ 1,000 mls/hr 1X ONCE IV Last administered on at 12:07; Start 04/08/19 at 11:45; Stop 04/08/19 at 12:44 Ondansetron HCl (Zofran) 4 mg 1X ONCE IVP Last administered on 04/08/19at 12:07; Start 04/08/19 at 11:45; Stop 04/08/19 at 11:46; Status DC Sodium Chloride 1,000 ml @ 1,000 mls/hr Q1H IV ; Start 04/08/19 at 12:23; Stop 04/08/19 at 13:22 Insulin Human Regular 100 unit/ Sodium Chloride 101 ml @ 0 mls/hr CONT PRN PRN IV PER PROTOCOL; Start 04/08/19 at 18:00 Insulin Human Regular 100 ml @ 0 mls/hr CONT PRN PRN IV PER PROTOCOL; Start 04/08/19 at 12:30; Stop 04/08/19 at 18:00 Active Scripts Active Humalog (Insulin Lispro) 100 Unit/1 Ml Insuln.pen 10 Units SQ TIDWMEALS 30 Days Lantus Solostar (Insulin Glargine,Hum.rec.anlog) 100 Unit/1 Ml Insuln.pen 20 Units SQ QHS 30 Days Allergies Allergies: Coded Allergies: I S O L A T I O N *CONTACT* (Verified Allergy, Unknown, 09/21/18) mrsa Penicillins (Verified Allergy, Unknown, 05/18/13) ROS Review of System Review of Systems Review of Systems Constitutional: Denies fever or chills reports fatigue [] Eyes: Denies change in visual acuity, redness, or eye pain [] HENT: Denies nasal congestion or sore throat [] Respiratory: Denies cough or shortness of breath [] Cardiovascular: No additional information not addressed in HPI [] GI: Reports abdominal pain, nausea, vomiting, diarrhea. Denies bloody stools. [] : Denies dysuria or hematuria [] Musculoskeletal: Denies back pain or joint pain [] Integument: Denies rash or skin lesions [] Neurologic: Denies headache, focal weakness or sensory changes [] Endocrine: Denies polyuria or polydipsia [] 14 PT systems were reviewed and found to be within normal limits, except as documented Respiratory: No: Cough, Hemoptysis, Orthopnea, Pleuritic Pain, Shortness of breath, SOB with excertion, Sputum Changes, Stridor, Tachypnea, Wheezing, Other Cardiovascular: No Chest Pain, No Palpitations, No Orthopnea, No Paroxysmal Noc. Dyspnea, No Edema, No Lt Headedness, No Other Gastrointestinal: Yes Nausea, Yes Vomiting, Yes Diarrhea Physical Exam Physical Exam Physical Exam Physical Exam Constitutional: Well developed, well nourished, appears uncomfortable, non-toxic appearance. [] HENT: Normocephalic, atraumatic, bilateral external ears normal, oropharynx DRY , no oral exudates, nose normal. [] Eyes: PERRLA, EOMI, conjunctiva normal, no discharge. [] Neck: Normal range of motion, no tenderness, supple, no stridor. [] Cardiovascular:Heart rate regular and tachycardic rhythm, no murmur [] Lungs & Thorax: Bilateral breath sounds clear to auscultation [] Abdomen: Bowel sounds normal, soft, no tenderness, no masses, no pulsatile masses. [] Skin: Warm, dry, no erythema, no rash. [] Back: No tenderness, no CVA tenderness. [] Extremities: No tenderness, no cyanosis, no clubbing, ROM intact, no edema. [] Neurologic: Alert and oriented X 3, normal motor function, normal sensory function, no focal deficits noted. [] Psychologic: Affect normal, judgment normal, mood normal. [] General: Alert, Oriented X3, Cooperative, mild distress HEENT: EOMI Lungs: Clear to auscultation, Normal air movement Heart: RRR Breasts: Not examined Abdomen: Normal bowel sounds, Soft Rectal Exam: not examined PELVIC: Examination not indicated Extremities: No cyanosis, No edema Neuro: Normal speech, Cranial nerves 3-12 NL Psych/Mental Status: Mental status NL, Mood NL Vitals Vitals Vital Signs Date Time Temp Pulse Resp B/P (MAP) Pulse Ox O2 Delivery O2 Flow Rate FiO2 04/08/19 11:23 99.1 111 18 125/86 (99) 99 Room Air 99.1 Labs Labs Laboratory Tests Test 04/08/19 10:34 04/08/19 11:31 Glucose (Fingerstick) 375 mg/dL (70-99) White Blood Count 15.9 x10^3/uL (4.0-11.0) Red Blood Count 5.25 x10^6/uL (4.30-5.70) Hemoglobin 15.5 g/dL (13.0-17.5) Hematocrit 45.9 % (39.0-53.0) Mean Corpuscular Volume 87 fL (79-100) Mean Corpuscular Hemoglobin 30 pg (25-35) Mean Corpuscular Hemoglobin Concent 34 g/dL (31-37) Red Cell Distribution Width 12.7 % (11.5-14.5) Platelet Count 376 x10^3/uL (140-400) Neutrophils (%) (Auto) 81 % (31-73) Lymphocytes (%) (Auto) 12 % (24-48) Monocytes (%) (Auto) 6 % (0-9) Eosinophils (%) (Auto) 1 % (0-3) Basophils (%) (Auto) 0 % (0-3) Neutrophils # (Auto) 13.0 x10^3/uL (1.8-7.7) Lymphocytes # (Auto) 2.0 x10^3/uL (1.0-4.8) Monocytes # (Auto) 0.9 x10^3/uL (0.0-1.1) Eosinophils # (Auto) 0.1 x10^3/uL (0.0-0.7) Basophils # (Auto) 0.1 x10^3/uL (0.0-0.2) Sodium Level 138 mmol/L (136-145) Potassium Level 5.3 mmol/L (3.5-5.1) Chloride Level 101 mmol/L (98-107) Carbon Dioxide Level 14 mmol/L (21-32) Anion Gap 23 (6-14) Blood Urea Nitrogen 16 mg/dL (8-26) Creatinine 1.0 mg/dL (0.7-1.3) Estimated GFR (Cockcroft-Gault) 89.0 BUN/Creatinine Ratio 16 (6-20) Glucose Level 360 mg/dL (70-99) Lactic Acid Level 1.0 mmol/L (0.4-2.0) Calcium Level 9.5 mg/dL (8.5-10.1) Magnesium Level 1.8 mg/dL (1.8-2.4) Total Bilirubin 0.5 mg/dL (0.2-1.0) Aspartate Amino Transf (AST/SGOT) 11 U/L (15-37) Alanine Aminotransferase (ALT/SGPT) 30 U/L (16-63) Alkaline Phosphatase 129 U/L (46-116) Troponin I Quantitative < 0.017 ng/mL (0.000-0.055) Total Protein 7.0 g/dL (6.4-8.2) Albumin 4.2 g/dL (3.4-5.0) Albumin/Globulin Ratio 1.5 (1.0-1.7) Acetone Level Sm pos (NEG) Laboratory Tests Test 04/08/19 10:34 04/08/19 11:31 Glucose (Fingerstick) 375 mg/dL (70-99) White Blood Count 15.9 x10^3/uL (4.0-11.0) Red Blood Count 5.25 x10^6/uL (4.30-5.70) Hemoglobin 15.5 g/dL (13.0-17.5) Hematocrit 45.9 % (39.0-53.0) Mean Corpuscular Volume 87 fL (79-100) Mean Corpuscular Hemoglobin 30 pg (25-35) Mean Corpuscular Hemoglobin Concent 34 g/dL (31-37) Red Cell Distribution Width 12.7 % (11.5-14.5) Platelet Count 376 x10^3/uL (140-400) Neutrophils (%) (Auto) 81 % (31-73) Lymphocytes (%) (Auto) 12 % (24-48) Monocytes (%) (Auto) 6 % (0-9) Eosinophils (%) (Auto) 1 % (0-3) Basophils (%) (Auto) 0 % (0-3) Neutrophils # (Auto) 13.0 x10^3/uL (1.8-7.7) Lymphocytes # (Auto) 2.0 x10^3/uL (1.0-4.8) Monocytes # (Auto) 0.9 x10^3/uL (0.0-1.1) Eosinophils # (Auto) 0.1 x10^3/uL (0.0-0.7) Basophils # (Auto) 0.1 x10^3/uL (0.0-0.2) Sodium Level 138 mmol/L (136-145) Potassium Level 5.3 mmol/L (3.5-5.1) Chloride Level 101 mmol/L (98-107) Carbon Dioxide Level 14 mmol/L (21-32) Anion Gap 23 (6-14) Blood Urea Nitrogen 16 mg/dL (8-26) Creatinine 1.0 mg/dL (0.7-1.3) Estimated GFR (Cockcroft-Gault) 89.0 BUN/Creatinine Ratio 16 (6-20) Glucose Level 360 mg/dL (70-99) Lactic Acid Level 1.0 mmol/L (0.4-2.0) Calcium Level 9.5 mg/dL (8.5-10.1) Magnesium Level 1.8 mg/dL (1.8-2.4) Total Bilirubin 0.5 mg/dL (0.2-1.0) Aspartate Amino Transf (AST/SGOT) 11 U/L (15-37) Alanine Aminotransferase (ALT/SGPT) 30 U/L (16-63) Alkaline Phosphatase 129 U/L (46-116) Troponin I Quantitative < 0.017 ng/mL (0.000-0.055) Total Protein 7.0 g/dL (6.4-8.2) Albumin 4.2 g/dL (3.4-5.0) Albumin/Globulin Ratio 1.5 (1.0-1.7) Acetone Level Sm pos (NEG) VTE Prophylaxis Ordered VTE Prophylaxis Devices: Yes VTE Pharmacological Prophylaxi: Yes Assessment/Plan Assessment/Plan IMPRESSIOBN DKA Fatigue secondary to elevated blood sugar HX NONCOMPLIANCE NAUSEA AND VOMITING METABOLIC ACODOSIS TOBACCO ABUSE ADMIT DKA PROTOCOL IV FLUID SUPPORT ICU BED IV ZOFRAN PRN Q 4 HRS DVT PROPHYLAXIS STOOL CULTURE BLOOD CULTURE IV insulin Follow anion gap Full code 34 MIN CC TIME JOSE BURNS MD Apr 08, 2019 12:34
[2019-04-08] MEDS ORDERED: LORazepam 0.5 MG TABLET PO PRN (13:15)
[2019-04-08] MEDS ORDERED: 0.9 % SODIUM CHLORIDE 10 ML DISP.SYRIN. IV PRN (13:15)
[2019-04-08] MEDS ORDERED: ONDANSETRON PF 4 MG/2 ML VIAL. IV PRN ×2 (13:15→13:30)
[2019-04-08] MEDS ORDERED: guaiFENesin ORAL 200 MG/10 ML LIQUID. PO PRN (13:15)
[2019-04-08] MEDS ORDERED: ACETAMINOPHEN 650 MG SUPP.RECT. PR PRN (13:15)
[2019-04-08] MEDS ORDERED: cloNIDine HCL 0.1 MG TABLET PO PRN (13:15)
[2019-04-08] MEDS ORDERED: ACETAMINOPHEN 325 MG TABLET. PO PRN (13:15)
[2019-04-08] MEDS ORDERED: ALBUTEROL SULFATE 2.5 MG/3 ML NEBU. NEB PRN (13:15)
[2019-04-08 13:20] LABS: % BANDS 1 % (0-9); % BASOS 1 % (0-3); % EOS 1 % (0-5); % LYMPHS 12 % (24-48); % MONOS 8 % (0-10); % SEGS 77 % (35-66)
[2019-04-08 13:21] LABS: PLT ESTIMATE ADEQUATE (ADEQUATE)
[2019-04-08 14:00] VITALS: BP 109/62
[2019-04-08] MEDS ORDERED: ENOXAPARIN 40 MG/0.4 ML SYRINGE. SQ SCH (14:00)
[2019-04-08 15:00] VITALS: BP 117/75
[2019-04-08] MEDS ORDERED: FLU VAX QS 2019-20 (36MOS+)/PF 0.5 ML SYRINGE. VAX IM ONE (15:45)
[2019-04-08 16:00] VITALS: BP 109/69
[2019-04-08 16:08] LABS: BASE EXCESS ABG -8 mmol/L (-3-3); HCO3 ABG 18 mmol/L (21-28); PCO2 ABG 36 mmHg (35-46); PO2 ABG 94 mmHg (85-108); SAT O2 ABG 97 % (92-99)
[2019-04-08 16:10] LABS: FIO2 ABG 21
[2019-04-08 17:00] VITALS: BP 121/73
[2019-04-08 18:00] VITALS: BP 128/75
[2019-04-08] MEDS ORDERED: INSULIN REGULAR VIAL 100 UNIT in IV NORMAL SALINE 100ML 100 ML IV PRN (18:00)
[2019-04-08] MEDS: IV DEXTROSE 5% - 0.9 % NACL 1,000 ML IV SCH ×2 (18:10→22:00)
[2019-04-08 18:43] LABS: CALCIUM 8.7 mg/dL (8.5-10.1); CREATININE 0.7 mg/dL (0.7-1.3); GFR 134.3; MAGNESIUM 1.8 mg/dL (1.8-2.4); PHOSPHORUS 3.4 mg/dL (2.6-4.7); POTASSIUM 3.8 mmol/L (3.5-5.1)
[2019-04-08 19:00] VITALS: BP 121/77
[2019-04-08] MEDS ORDERED: DEXTROSE 50% 25 GM / 50ML DISP.SYRIN. IV PRN (19:00)
[2019-04-08] MEDS ORDERED: INSULIN GLARGINE SYRINGE. SQ SCH (21:00)
--- NOTE | 2019-04-08 23:57 | EKG ---
[facility] [address] [place] [address] Test Date: 2019-04-08 Test Time: 11:43:31 Pat Name: TRACE RANDOLPH Department: Room: Gender: [employer]: : 1990 Requested By: CLARITA REICH Order Number: [id number] Reading MD: Measurements Intervals [place] Rate: 93 P: 64 MI: 128 QRS: 48 QRSD: 88 T: 24 QT: 336 QTc: 420 Interpretive Statements SINUS RHYTHM NO SPECIFIC ECG ABNORMALITIES RI6.01 No previous ECG available for comparison
[2019-04-09] VITALS: BP 118/67
[2019-04-09] MEDS: IV DEXTROSE 5% - 0.9 % NACL 1,000 ML IV SCH (02:00)
[2019-04-09 04:00] VITALS: BP 117/77
[2019-04-09 06:02] LABS: ALBUMIN 3.1 g/dL (3.4-5.0); ALBUMIN/GLOBULIN RATIO 1.3 (1.0-1.7); CALCIUM 8.4 mg/dL (8.5-10.1); CREATININE 0.7 mg/dL (0.7-1.3); GFR 134.3; POTASSIUM 3.6 mmol/L (3.5-5.1); TOTAL BILIRUBIN 0.3 mg/dL (0.2-1.0); TOTAL PROTEIN 5.5 g/dL (6.4-8.2)
--- NOTE | 2019-04-09 06:11 | NUR ---
RN received report from Asmita GREEN in the ICU at 0611, patient was transported from ICU to room 428 at 0640. Patient was oriented to room and bed is in lowest locked position and call light is within reach. RN will monitor patient closely.
[2019-04-09 08:00] VITALS: BP 106/75
[2019-04-09] MEDS: INSULIN LISPRO 300 UNITS/3 ML VIAL. SQ SCH ×2 (09:24→12:00)
[2019-04-09] MEDS ORDERED: CIPR2.5D OU (10:38)
[2019-04-09] MEDS: CIPROFLOXACIN 0.3% OPHTH SOLUTION 5ML BOTTLE. OU SCH ×2 (11:27→13:00)
[2019-04-09] MEDS ORDERED: INSULIN LISPRO 300 UNITS/3 ML VIAL. SQ SCH (12:00)
--- NOTE | 2019-04-09 12:00 | NUR ---
1200 Discharge teaching completed, IV site discontinued without difficulty. Pt stated he understood his discharge teaching and follow up instructions and home medications. He stated that he had already given himself his noon insulin dose after the aide took his blood sugar (home medication with him, he said he gave 13 units like he would at home). Pt was discharged to home with family; he was escorted out ambulatory by staff.
== END 2019-04-09 12:00 | disposition home or self-care (01) | DRG 639 ==
LOC: ER 10:31 → 1 WEST ICU 12:30 → 4 NORTH 04-09 06:40
PROVIDERS: ADMIT Family Medicine; ATTEND Family Medicine
DX: E10.10 Type 1 diabetes mellitus with ketoacidosis without coma (principal); F17.210 Nicotine dependence, cigarettes, uncomplicated; R19.7 Diarrhea, unspecified; Z88.0 Allergy status to penicillin; Z91.09 Other allergy status, other than to drugs and biological substances; Z82.5 Family history of asthma and other chronic lower respiratory diseases; Z82.49 Family history of ischemic heart disease and other diseases of the circulatory system; Z91.19 Patient's noncompliance with other medical treatment and regimen
CPT/HCPCS: 36415; 36600; 71045; 80048; 80053; 82010; 82805; 82962; 83605; 83735; 84100; 84484; 85007; 85025; 87040; 90471; 90686; 93005; 96365; 99285; J1650; J1815; J2405; J7030; J7042; G0378

== ENCOUNTER 2019-05-08 04:44 | Emergency (ER) | payer SELFPAY ==
[~2019-05-08] VITALS: Ht 180.3 cm; Wt 70.5 kg
[~2019-05-08 04:44] MED LIST changes: +CIPR2.5D OU
[2019-05-08] MEDS ORDERED: LIDOCAINE 1% Multi-Dose 20 ML VIAL. ONE (05:23)
[2019-05-08] MEDS ORDERED: DOXY100C2 PO (05:28)
--- NOTE | 2019-05-08 05:28 | PHYS DOC ---
Past Medical History Past Medical History: Diabetes-Type I Past Surgical History: Tonsillectomy, Other Additional Past Surgical Histo: HERNIA Smoking Status: Current Every Day Smoker Alcohol Use: Occasionally Drug Use: None Adult General Chief Complaint Chief Complaint: DENTAL PROBLEM [facility] HPI 29-year-old male presents the emergency department complaints of left bottom wisdom tooth pain. Patient states he broke his to fall approximately 2 months ago. He has been dealing with the pain with OrEvergigl however states this morning he woke up with increased swelling to his face and the left side with increased pain. He denies any fever. Nothing makes his pain better, nothing makes his pain worse. Patient denies difficulty swallowing, he does state is somewhat painful at times. He denies any ear pain. Review of Systems Review of Systems Constitutional: Denies fever or chills [] Respiratory: Denies cough or shortness of breath [] Cardiovascular: No additional information not addressed in HPI [] GI: Denies abdominal pain, nausea, vomiting, bloody stools or diarrhea [] : Denies dysuria or hematuria [] Neurologic: Denies headache, focal weakness or sensory changes [] All other systems were reviewed and found to be within normal limits, except as documented in this note. Allergies Allergies Allergies Coded Allergies Type Severity Reaction Last Updated Verified Penicillins Allergy Severe 04/09/19 Yes I S O L A T I O N *CONTACT* Allergy Unknown 09/21/18 Yes Physical Exam Physical Exam Constitutional: Well developed, well nourished, no acute distress, non-toxic appearance. [] HENT: Normocephalic, atraumatic, bilateral external ears normal, oropharynx moist, no oral exudates, nose normal. Left inferior posterior wisdom tooth with pain, some swelling around gum [] Eyes: PERRLA, EOMI, conjunctiva normal, no discharge. [] Neck: Normal range of motion, mild tender to palpation the left side, supple, no stridor. [] Cardiovascular:Heart rate regular rhythm, no murmur [] Lungs & Thorax: Bilateral breath sounds clear to auscultation [] Skin: Warm, dry, no erythema, no rash. [] Neurologic: Alert and oriented X 3, no focal deficits noted. [] Psychologic: Affect normal, judgement normal, mood normal. [] EKG EKG [] Radiology/Procedures Radiology/Procedures [] Course & Med Decision Making Course & Med Decision Making Pertinent Labs and Imaging studies reviewed. (See chart for details) []29-year-old male presents the emergency department complaints of left bottom wisdom tooth pain. Patient states he broke his to fall approximately 2 months ago. He has been dealing with the pain with Orajel however states this morning he woke up with increased swelling to his face and the left side with increased pain. He denies any fever. Nothing makes his pain better, nothing makes his pain worse. Patient denies difficulty swallowing, he does state is somewhat painful at times. He denies any ear pain. Dental block provided with lidocaine, bupivacaine Antibiotics provided upon discharge Recommend follow-up with dentist for tooth extraction Tylenol, Motrin, Orajel as needed Return precautions discussed Draghitesh Disclaimer Dragon Disclaimer This electronic medical record was generated, in whole or in part, using a voice recognition dictation system. Departure Departure Impression: Primary Impression: Dental abscess Disposition: HOME, SELF-CARE Condition: STABLE Referrals: NO PCP (PCP) Patient Instructions: Dental Abscess Additional Instructions: Take antibiotics as directed Tylenol, Motrin, Orajel as needed Recommend follow with dentist for tooth extraction Dental block provided in the ER with Marcaine, lidocaine Scripts Doxycycline Hyclate (DOXYCYCLINE HYCLATE) 100 Mg Capsule 1 CAP PO BID for 10 Days, #20 CAP Prov: KEREN SCHNEIDER MD 05/08/19 KEREN SCHNEIDER MD May 08, 2019 05:28
[2019-05-08 06:00] VITALS: BP 129/89
[2019-05-08] MEDS ORDERED: LIDOCAINE 2% 20 ML VIAL. INJ ONE (06:00)
[2019-05-08] MEDS ORDERED: BUPIVACAINE MPF 0.25% 10 ML VIAL. IJ ONE (06:00)
[2019-05-09] MEDS ORDERED: ONDA-84 PO (22:50)
[2019-05-09] MEDS ORDERED: CLIN150C14 PO (22:50)
== END 2019-05-08 05:58 | disposition home or self-care (01) ==
LOC: ER 04:44
DX: K04.7 Periapical abscess without sinus (principal); E10.9 Type 1 diabetes mellitus without complications; F17.200 Nicotine dependence, unspecified, uncomplicated; Z88.0 Allergy status to penicillin; Z91.041 Radiographic dye allergy status
CPT/HCPCS: 64400; 99284-25

== ENCOUNTER 2019-05-10 16:30 | Inpatient (IN) | payer SELFPAY ==
[~2019-05-10] VITALS: Ht 180.3 cm; Wt 64.5 kg
[~2019-05-10 16:30] MED LIST changes: +CLIN150C14 PO; +DOXY100C2 PO; +ONDA-84 PO
[2019-05-10] MEDS ORDERED: IV NORMAL SALINE 1000ML BAG 1,000 ML IV ONE ×2 (17:00→18:15)
[2019-05-10] MEDS ORDERED: PROCHLORPERAZINE 10 MG/2 ML VIAL. ONE (17:22)
[2019-05-10] MEDS ORDERED: PROCHLORPERAZINE 10 MG/2 ML VIAL. IV ONE (17:30)
[2019-05-10 17:54] LABS: ALBUMIN 4.3 g/dL (3.4-5.0); ALBUMIN/GLOBULIN RATIO 1.3 (1.0-1.7); CALCIUM 9.8 mg/dL (8.5-10.1); CREATININE 1.4 mg/dL (0.7-1.3); GFR 60.3; POTASSIUM 5.3 mmol/L (3.5-5.1); TOTAL BILIRUBIN 0.5 mg/dL (0.2-1.0); TOTAL PROTEIN 7.7 g/dL (6.4-8.2)
[2019-05-10] MEDS ORDERED: POTASSIUM CHLORIDE 10MEQ 100 ML IV PRN (18:15)
--- NOTE | 2019-05-10 18:16 | PHYS DOC ---
Past Medical History Past Medical History: Diabetes-Type I Past Surgical History: Tonsillectomy, Other Additional Past Surgical Histo: HERNIA Smoking Status: Current Every Day Smoker Alcohol Use: Occasionally Drug Use: None Adult General Chief Complaint Chief Complaint: ABDOMINAL PAIN HPI HPI Patient is a 29 year old male, accompanied by his mother, who presents to the emergency department with complaints of continued vomiting, epigastric pain, and dental pain. Patient is a type I diabetic but does not have a primary care doctor. I evaluated this patient yesterday and tried to convince him to be admitted to the hospital. The patient declined admission last night stating that he felt better. 2 visits prior the patient has been prescribed doxycycline for a left dental infection. Yesterday patient was given a dose of IV clindamycin and prescribed clindamycin after 2 L of normal saline were also given. Patient denies any fever, he reports rapid respirations, dry mouth, elevated blood sugar, and at least 20 episodes of vomiting today. He currently rates his epigastric abdominal pain a 10 out of 10 on the pain scale, he denies any alleviating factors. Patient denies any cough, shortness of breath, diarrhea, polyuria, or polyphagia. Review of Systems Review of Systems Complete ROS is negative unless otherwise noted in HPI. Current Medications Current Medications Current Medications Medications (Trade) Dose Ordered Sig/Gwyn Start Time Stop Time Status Last Admin Dose Admin Prochlorperazine Edisylate (Compazine) 10 mg STK-MED ONCE 05/10/19 17:22 05/10/19 17:22 DC Sodium Chloride 1,000 ml @ 1,000 mls/hr 1X ONCE 05/10/19 17:00 05/10/19 17:59 DC 05/10/19 17:25 1,000 MLS/HR Allergies Allergies Allergies Coded Allergies Type Severity Reaction Last Updated Verified Penicillins Allergy Severe 04/09/19 Yes I S O L A T I O N *CONTACT* Allergy Unknown 09/21/18 Yes Physical Exam Physical Exam See Above Constitutional: Well developed, well nourished, moderate distress, ill appearance. [] HENT: Normocephalic, atraumatic, bilateral external ears normal, oropharynx dry, nose normal. [] Eyes: PERRLA, EOMI, conjunctiva normal, no discharge. [] Neck: Normal range of motion, no stridor. [] Cardiovascular:Heart rate regular tachycardic rhythm, no murmur [] Lungs & Thorax: Bilateral breath sounds clear to auscultation, rapid, shallow respirations, no wheezing[] Abdomen: Bowel sounds normal, soft, epigastric TTP, no rebound tenderness, no masses, no pulsatile masses. [] Skin: Warm, dry, no erythema, no rash. [] Extremities: No cyanosis, ROM intact, no edema. [] Neurologic: Alert and oriented X 3, no focal deficits noted. [] Psychologic: Affect normal, judgement normal, mood normal. [] Current Patient Data Vital Signs Vital Signs Date Time Temp Pulse Resp B/P (MAP) Pulse Ox O2 Delivery O2 Flow Rate FiO2 05/10/19 16:45 99.4 125 22 145/86 (105) 100 Room Air 99.4 Lab Values Laboratory Tests Test 05/10/19 17:23 05/10/19 17:24 Sodium Level 130 mmol/L (136-145) L Potassium Level 5.3 mmol/L (3.5-5.1) H Chloride Level 94 mmol/L (98-107) L Carbon Dioxide Level 6 mmol/L (21-32) *L Anion Gap 30 (6-14) H Blood Urea Nitrogen 31 mg/dL (8-26) H Creatinine 1.4 mg/dL (0.7-1.3) H Estimated GFR (Cockcroft-Gault) 60.3 BUN/Creatinine Ratio 22 (6-20) H Glucose Level 425 mg/dL (70-99) H Lactic Acid Level 3.5 mmol/L (0.4-2.0) H Calcium Level 9.8 mg/dL (8.5-10.1) Magnesium Level 2.0 mg/dL (1.8-2.4) Total Bilirubin 0.5 mg/dL (0.2-1.0) Aspartate Amino Transferase (AST) 15 U/L (15-37) Alanine Aminotransferase (ALT) 28 U/L (16-63) Alkaline Phosphatase 125 U/L (46-116) H Total Protein 7.7 g/dL (6.4-8.2) Albumin 4.3 g/dL (3.4-5.0) Albumin/Globulin Ratio 1.3 (1.0-1.7) Glucose (Fingerstick) 469 mg/dL (70-99) H Laboratory Tests 05/10/19 17:23 EKG EKG 1746- SINUS TACH RATE OF 146, NO STEMI READ BY DR. WINCHESTER[] Radiology/Procedures Radiology/Procedures [] Course & Med Decision Making Course & Med Decision Making Pertinent Labs and Imaging studies reviewed. (See chart for details) 180-spoke with Dr. Jorgensen who is the admitting physician, and care was assumed following discussion of patient. Patient's vital signs stable. Patient remains afebrile, appears ill, respirations tachypneic and shallow. Patient will be admitted to the ICU floor. Patient's case and plan of care also discussed with Dr. Saxena [] Dragon Disclaimer Dragon Disclaimer This electronic medical record was generated, in whole or in part, using a voice recognition dictation system. Departure Departure Impression: Primary Impression: DKA (diabetic ketoacidoses) Additional Impression: Dental infection Disposition: ADMITTED INPATIENT Admitting Physician: GARRET (Joslyn) Condition: STABLE Referrals: NO PCP (PCP) Problem Qualifiers Primary Impression: DKA (diabetic ketoacidoses) Diabetes mellitus type: type 1 Diabetes mellitus complication detail: without coma Qualified Codes: E10.10 - Type 1 diabetes mellitus with ketoacidosis without coma MIKA TREVIZO BELT MEASURER May 10, 2019 18:16
[2019-05-10 18:48] LABS: BASO # 0.1 x10^3/uL (0.0-0.2); BASO % 0 % (0-3); EOS % 0 % (0-3); HEMATOCRIT 36.2 % (39.0-53.0); LYMPH # 1.5 x10^3/uL (1.0-4.8); LYMPH % 6 % (24-48); MEAN CORPUSCULAR HEMOGLOBIN 30 pg (25-35); MEAN CORPUSCULAR HGB CONC 33 g/dL (31-37); MEAN CORPUSCULAR VOLUME 89 fL (79-100); MONO # 2.3 x10^3/uL (0.0-1.1); MONO % 9 % (0-9); NEUT # 20.8 x10^3/uL (1.8-7.7); NEUT % 84 % (31-73); PLATELET COUNT 378 x10^3/uL (140-400); RED BLOOD COUNT 4.07 x10^6/uL (4.30-5.70); RED CELL DISTRIBUTION WIDTH 12.3 % (11.5-14.5); WHITE BLOOD COUNT 24.6 x10^3/uL (4.0-11.0)
[2019-05-10] MEDS ORDERED: ONDANSETRON PF 4 MG/2 ML VIAL. IV ONE (19:00)
[2019-05-10 19:19] LABS: % BANDS 6 % (0-9); % LYMPHS 8 % (24-48); % MONOS 5 % (0-10); % SEGS 81 % (35-66)
[2019-05-10 19:20] LABS: PLT ESTIMATE ADEQUATE (ADEQUATE)
[2019-05-10 19:21] LABS: TOXIC GRANULATION SLIGHT
[2019-05-10] MEDS: INSULIN,REGULAR 100 UNIT DRIP 100 ML IV PRN (19:24)
[2019-05-10 19:29] LABS: BILIRUBIN,URINE NEGATIVE (NEG); CLARITY,URINE CLEAR; COLOR,URINE YELLOW; NITRITE,URINE NEGATIVE (NEG); PROTEIN,URINE 30 mg/dL (NEG-TRACE); UROBILINOGEN,URINE 0.2 mg/dL (0.2 mg/dL)
[2019-05-10 19:36] LABS: BACTERIA,URINE 0 /HPF (0-FEW); RBC,URINE 0 /HPF (0-2); WBC,URINE 0 /HPF (0-4)
[2019-05-10] MEDS ORDERED: ONDANSETRON PF 4 MG/2 ML VIAL. IV PRN (19:45)
[2019-05-10] MEDS: MORPHINE SULFATE 4 MG/ML VIAL. IV PRN (20:39)
[2019-05-10 21:05] VITALS: BP 145/82
[2019-05-10 21:15] VITALS: BP 121/82
[2019-05-10] MEDS ORDERED: IV NORMAL SALINE 1000ML BAG 1,000 ML IV SCH ×2 (21:19→21:22)
[2019-05-10 21:30] VITALS: BP 115/77
[2019-05-10] MEDS ORDERED: IV NORMAL SALINE 500ML BAG 500 ML IV ONE (21:30)
[2019-05-10 21:45] VITALS: BP 180/82
[2019-05-10] MEDS ORDERED: CLINDAMYCIN 600MG PREMIX 50 ML IV ONE (21:45)
[2019-05-10 22:00] VITALS: BP 114/81
[2019-05-10 23:00] VITALS: BP 116/77
[2019-05-10 23:23] LABS: CALCIUM 8.4 mg/dL (8.5-10.1); CREATININE 1.1 mg/dL (0.7-1.3); GFR 79.7; PHOSPHORUS 2.4 mg/dL (2.6-4.7); POTASSIUM 4.4 mmol/L (3.5-5.1)
[2019-05-11] VITALS (15 sets, daily range): BP systolic 99–117; BP diastolic 60–82
[2019-05-11] MEDS: IV DEXTROSE 5% - 0.9 % NACL 1,000 ML IV SCH ×2 (00:45→04:18)
[2019-05-11] MEDS ORDERED: POTASSIUM CHLORIDE 10MEQ 100 ML IV PRN (00:45)
[2019-05-11] MEDS: POTASSIUM PHOSPHATE DIBASIC 10 MMOL in IV NORMAL SALINE 100ML 100 ML IV SCH ×2 (01:19→04:18)
[2019-05-11] MEDS: INSULIN,REGULAR 100 UNIT DRIP 100 ML IV PRN ×2 (01:20→08:09)
[2019-05-11] MEDS: POTASSIUM CHLORIDE 10MEQ 100 ML IV SCH ×2 (02:07→03:19)
--- NOTE | 2019-05-11 05:13 | EKG ---
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
[2019-05-11 08:07] LABS: HEMATOCRIT 35.3 % (39.0-53.0); HEMOGLOBIN 12.2 g/dL (13.0-17.5); RED BLOOD COUNT 4.11 x10^6/uL (4.30-5.70); RED CELL DISTRIBUTION WIDTH 12.4 % (11.5-14.5); WHITE BLOOD COUNT 16.1 x10^3/uL (4.0-11.0)
[2019-05-11 08:30] LABS: CREATININE 0.7 mg/dL (0.7-1.3); GFR 134.3; MAGNESIUM 1.8 mg/dL (1.8-2.4); PHOSPHORUS 1.6 mg/dL (2.6-4.7); POTASSIUM 3.4 mmol/L (3.5-5.1)
[2019-05-11] MEDS ORDERED: DEXTROSE 50% 25 GM / 50ML DISP.SYRIN. IV PRN (08:45)
--- NOTE | 2019-05-11 11:18 | NUR ---
SS following for discharge planning. SS reviewed pt chart. Pt is self pay pt. HCFS following for self pay status. Pt is from home and is currently on room air. Referral received for no insurance and resources for diabetic needs. SS discussed with RN and met with pt and provided resources for medications and supplies to include Good RX card and [facility]. SS will continue to follow for discharge planning.
--- NOTE | 2019-05-11 11:43 | HP ---
ADMIT DATE: 05/10/2019 CHIEF COMPLAINT: Abdominal pain. HISTORY OF PRESENT ILLNESS: The patient is a pleasant 29-year-old male who has had diabetes for many years. He presented with abdominal pain. He was accompanied by his mother, rated his pain at 9/10. He has associated nausea and vomiting and some dental pain. While in the ER, he was noted to be in DKA. He has been admitted to the ICU on insulin drip. PAST MEDICAL HISTORY: DKA, diabetes, tonsillectomy and hernia repair. ALLERGIES: PENICILLIN. FAMILY HISTORY: Coronary artery disease. SOCIAL HISTORY: He does not drink, smoke or take drugs. 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 MEDICATIONS: Reviewed, please refer to the MRAD. REVIEW OF SYSTEMS: GENERAL: No history of weight change, weakness or fevers. SKIN: No bruising, hair changes or rashes. HEENT: He complains of tooth pain. HEART: No history of palpitations, chest pain or shortness of breath on exertion. LUNGS: Denies cough, hemoptysis, wheezing or shortness of breath. GASTROINTESTINAL: He complains of abdominal exam. GENITOURINARY: No history of frequency, urgency, hesitancy or nocturia. NEUROLOGIC: Denies history of numbness, tingling, tremor or weakness. PSYCHIATRIC: No history of panic, anxiety or depression. ENDOCRINE: No history of heat or cold intolerance, polyuria or polydipsia. EXTREMITIES: Denies muscle weakness, joint pain, pain on walking or stiffness. PHYSICAL EXAMINATION: VITALS: Within normal limits and are stable. GENERAL: He is somewhat depressed and weak. HEENT: Normal cephalic atraumatic, external auditory canals are patent EYES: Extraocular muscles are intact, pupils are equally round and reactive to light and accommodation MUSCULOSKELETAL: Well developed, well nourished, good range of motion ENDOCRINE: No thyromegaly was palpated LYMPHATICS: No cervical chain or axillary nodes were noted HEMATOPOIETIC: No bruising NECK: Supple, no JVD, no thyromegaly was noted. LUNGS: Clear to auscultation in all lung espitia without rhonchi or wheezing. HEART: RRR, S1, S2 present. Peripheral pulses intact, no obvious murmurs were noted. ABDOMEN: Soft, nontender. Positive bowel sounds no organomegaly, normal bowel sounds. EXTREMITIES: Without any cyanosis, clubbing, or edema. Pedal pulses intact, Homans sign is negative. NEUROLOGIC: Normal speech, normal tone. A & O x3, moves all extremities, no obvious focal deficits. PSYCHIATRIC: He appears depressed. SKIN: No ulcerations or rashes, good skin turgor, no jaundice. VASCULAR: Good capillary refill, neurovascular bundle appears to be intact. LABORATORY DATA: White count 24, hemoglobin 12, platelets 386. Anion gap 19, glucose was as high as 469. ASSESSMENT AND PLAN: Diabetic ketoacidosis, leukocytosis. The patient has been admitted on DKA protocol. We will start empiric IV antibiotics, home meds, DVT prophylaxis. Full code. COURTNEY BROWN DO DR: NALINI/cristóbal JOB#: [id number] / [id number]
[2019-05-11] MEDS: INSULIN LISPRO 300 UNITS/3 ML VIAL. SQ SCH ×2 (11:47→16:59)
[2019-05-11] MEDS ORDERED: INSULIN LISPRO 300 UNITS/3 ML VIAL. SQ SCH (12:00)
[2019-05-11] MEDS ORDERED: BENZOCAINE/MENTHOL LOZENGE. PO PRN (12:00)
--- NOTE | 2019-05-11 14:30 | NUR ---
Pt transferred to [facility] by w/c. Patient belongings transferred with pt.
[2019-05-11] MEDS: MORPHINE SULFATE 4 MG/ML VIAL. IV PRN ×2 (14:33→19:11)
[2019-05-11] MEDS ORDERED: ACETAMINOPHEN 325 MG TABLET. PO PRN (20:30)
[2019-05-11] MEDS: LACTOBACILLUS RHAMNOSUS GG 1 CAPSULE. PO SCH (20:41)
[2019-05-11] MEDS ORDERED: LIDOCAINE 2% VISCOUS 15 ML SOLUTION. SWSW PRN (20:45)
[2019-05-11] MEDS: INSULIN GLARGINE SYRINGE. SQ SCH (20:45)
[2019-05-11] MEDS: KETOROLAC 30 MG/ML VIAL. IVP PRN (20:50)
[2019-05-11] MEDS: traMADol 50 MG TABLET PO PRN (22:06)
[2019-05-12] MEDS: KETOROLAC 30 MG/ML VIAL. IVP PRN ×3 (03:07→20:07)
[2019-05-12 03:11] VITALS: BP 122/86
[2019-05-12] MEDS: traMADol 50 MG TABLET PO PRN ×2 (06:18→13:39)
[2019-05-12 07:00] VITALS: BP 130/85
--- NOTE | 2019-05-12 07:10 | NUR ---
IP: Pt has a hx of + mrsa screen on 09/20/18. Pt to be in contact precautions until there are 2 negative screens 7 days apart.
[2019-05-12] MEDS: INSULIN LISPRO 300 UNITS/3 ML VIAL. SQ SCH ×5 (07:56→21:00)
[2019-05-12] MEDS ORDERED: MAGNESIUM SULFATE 2GM 50 ML IV ONE (08:00)
[2019-05-12] MEDS ORDERED: POTASSIUM CHLORIDE 20 MEQ TABLET.ER. PO ONE (08:00)
--- NOTE | 2019-05-12 08:09 | PDOC ---
PROGRESS NOTES Chief Complaint Chief Complaint A/P: DKA DM1 Hypophosphatemia Hypokalemia Hypomagnesemia Left mandibular cellulitis with severe dental caries - he is self pay, will ask DMD if he can evaluate. History of Present Illness History of Present Illness Mr Cortes is a 29 yo M w/ PMHx DM1 p/w abdominal pain via his mother with associated nausea and vomiting and some dental pain. He was evaluated on 05/10/19 for jaw pain, given clindamycin and left the ED. 2 visits prior the patient has been prescribed doxycycline for a left dental infection which has become much worse. CT neck - Visualized intracranial structures are unremarkable. Complete opacification of the left maxillary sinus. Extensive edema within the fat surrounding the left mandible. A discrete focal fluid collection is not identified. Numerous enlarged upper cervical lymph nodes are noted bilaterally greater on the left. Nasopharynx, oropharynx, hypopharynx and larynx are patent. Thyroid and salivary glands are unremarkable. Visualized lung apices are clear. No suspicious osseous lesions or acute fractures. IMPRESSION: 1. Soft tissue edema surrounding the left mandible without a discrete fluid collection identified. 2. Numerous upper cervical lymph nodes that are enlarged greater on the left, likely reactive to the above process. 3. Sinus disease as described above. Admitted to ICU in DKA on insulin drip this visit. Transferred from ICU overnight. Phos 1.6, K3.5, Mg 1.8. Dental pain severe, but abdominal pain improved. Gap closed. Unable to open his mouth greater than 2cm. Cannot get solid food into his mouth. Has some lower left neck pain. Vitals Vitals Vital Signs Date Time Temp Pulse Resp B/P (MAP) Pulse Ox O2 Delivery O2 Flow Rate FiO2 05/12/19 07:29 Room Air 05/12/19 07:00 98.5 87 17 130/85 (100) 99 98.5 Physical Exam General: Alert, Oriented X3, Cooperative Heart: Regular rate, Normal S1, Normal S2 Lungs: Clear Labs LABS Laboratory Tests Test 05/11/19 08:59 05/11/19 11:42 05/11/19 16:47 05/11/19 20:40 Glucose (Fingerstick) 143 mg/dL (70-99) 221 mg/dL (70-99) 224 mg/dL (70-99) 241 mg/dL (70-99) Test 05/12/19 07:52 Glucose (Fingerstick) 275 mg/dL (70-99) Assessment and Plan Assessmemt and Plan Problems Medical Problems: (1) Dental infection Status: Acute Comment Review of Relevant I have reviewed the following items cinthia (where applicable) has been applied. Labs Laboratory Tests Test 05/10/19 17:23 05/10/19 17:24 05/10/19 18:40 05/10/19 19:08 Sodium Level 130 mmol/L (136-145) Potassium Level 5.3 mmol/L (3.5-5.1) Chloride Level 94 mmol/L (98-107) Carbon Dioxide Level 6 mmol/L (21-32) Anion Gap 30 (6-14) Blood Urea Nitrogen 31 mg/dL (8-26) Creatinine 1.4 mg/dL (0.7-1.3) Estimated GFR (Cockcroft-Gault) 60.3 BUN/Creatinine Ratio 22 (6-20) Glucose Level 425 mg/dL (70-99) Lactic Acid Level 3.5 mmol/L (0.4-2.0) Calcium Level 9.8 mg/dL (8.5-10.1) Magnesium Level 2.0 mg/dL (1.8-2.4) Total Bilirubin 0.5 mg/dL (0.2-1.0) Aspartate Amino Transf (AST/SGOT) 15 U/L (15-37) Alanine Aminotransferase (ALT/SGPT) 28 U/L (16-63) Alkaline Phosphatase 125 U/L (46-116) Total Protein 7.7 g/dL (6.4-8.2) Albumin 4.3 g/dL (3.4-5.0) Albumin/Globulin Ratio 1.3 (1.0-1.7) Glucose (Fingerstick) 469 mg/dL (70-99) 399 mg/dL (70-99) White Blood Count 24.6 x10^3/uL (4.0-11.0) Red Blood Count 4.07 x10^6/uL (4.30-5.70) Hemoglobin 12.0 g/dL (13.0-17.5) Hematocrit 36.2 % (39.0-53.0) Mean Corpuscular Volume 89 fL (79-100) Mean Corpuscular Hemoglobin 30 pg (25-35) Mean Corpuscular Hemoglobin Concent 33 g/dL (31-37) Red Cell Distribution Width 12.3 % (11.5-14.5) Platelet Count 378 x10^3/uL (140-400) Neutrophils (%) (Auto) 84 % (31-73) Lymphocytes (%) (Auto) 6 % (24-48) Monocytes (%) (Auto) 9 % (0-9) Eosinophils (%) (Auto) 0 % (0-3) Basophils (%) (Auto) 0 % (0-3) Neutrophils # (Auto) 20.8 x10^3/uL (1.8-7.7) Lymphocytes # (Auto) 1.5 x10^3/uL (1.0-4.8) Monocytes # (Auto) 2.3 x10^3/uL (0.0-1.1) Eosinophils # (Auto) 0.0 x10^3/uL (0.0-0.7) Basophils # (Auto) 0.1 x10^3/uL (0.0-0.2) Segmented Neutrophils % 81 % (35-66) Band Neutrophils % 6 % (0-9) Lymphocytes % 8 % (24-48) Monocytes % 5 % (0-10) Toxic Granulation Slight Platelet Estimate Adequate (ADEQUATE) Test 05/10/19 19:20 05/10/19 20:17 05/10/19 20:20 05/10/19 21:05 Urine Collection Type Unknown Urine Color Yellow Urine Clarity Clear Urine pH 5.0 (<5.0-8.0) Urine Specific [place] >=1.030 (1.000-1.030) Urine Protein 30 mg/dL (NEG-TRACE) Urine Glucose (UA) >=1000 mg/dL (NEG) Urine Ketones (Stick) >=80 mg/dL (NEG) Urine Blood Small (NEG) Urine Nitrite Negative (NEG) Urine Bilirubin Negative (NEG) Urine Urobilinogen Dipstick 0.2 mg/dL (0.2 mg/dL) Urine Leukocyte Esterase Negative (NEG) Urine RBC 0 /HPF (0-2) Urine WBC 0 /HPF (0-4) Urine Bacteria 0 /HPF (0-FEW) Urine Mucus Slight /LPF Glucose (Fingerstick) 424 mg/dL (70-99) 428 mg/dL (70-99) Lactic Acid Level 3.8 mmol/L (0.4-2.0) Test 05/10/19 22:20 05/10/19 22:55 05/10/19 23:19 05/11/19 00:27 Glucose (Fingerstick) 299 mg/dL (70-99) 248 mg/dL (70-99) 198 mg/dL (70-99) Sodium Level 136 mmol/L (136-145) Potassium Level 4.4 mmol/L (3.5-5.1) Chloride Level 104 mmol/L (98-107) Carbon Dioxide Level 10 mmol/L (21-32) Anion Gap 22 (6-14) Blood Urea Nitrogen 30 mg/dL (8-26) Creatinine 1.1 mg/dL (0.7-1.3) Estimated GFR (Cockcroft-Gault) 79.7 Glucose Level 294 mg/dL (70-99) Calcium Level 8.4 mg/dL (8.5-10.1) Phosphorus Level 2.4 mg/dL (2.6-4.7) Magnesium Level 2.0 mg/dL (1.8-2.4) Test 05/11/19 01:31 05/11/19 02:36 05/11/19 03:24 05/11/19 04:34 Glucose (Fingerstick) 211 mg/dL (70-99) 225 mg/dL (70-99) 201 mg/dL (70-99) 191 mg/dL (70-99) Test 05/11/19 05:32 05/11/19 06:25 05/11/19 07:31 05/11/19 07:45 Glucose (Fingerstick) 213 mg/dL (70-99) 194 mg/dL (70-99) 170 mg/dL (70-99) White Blood Count 16.1 x10^3/uL (4.0-11.0) Red Blood Count 4.11 x10^6/uL (4.30-5.70) Hemoglobin 12.2 g/dL (13.0-17.5) Hematocrit 35.3 % (39.0-53.0) Mean Corpuscular Volume 86 fL (79-100) Mean Corpuscular Hemoglobin 30 pg (25-35) Mean Corpuscular Hemoglobin Concent 35 g/dL (31-37) Red Cell Distribution Width 12.4 % (11.5-14.5) Platelet Count 353 x10^3/uL (140-400) Sodium Level 139 mmol/L (136-145) Potassium Level 3.4 mmol/L (3.5-5.1) Chloride Level 109 mmol/L (98-107) Carbon Dioxide Level 19 mmol/L (21-32) Anion Gap 11 (6-14) Blood Urea Nitrogen 20 mg/dL (8-26) Creatinine 0.7 mg/dL (0.7-1.3) Estimated GFR (Cockcroft-Gault) 134.3 Glucose Level 195 mg/dL (70-99) Calcium Level 8.0 mg/dL (8.5-10.1) Phosphorus Level 1.6 mg/dL (2.6-4.7) Magnesium Level 1.8 mg/dL (1.8-2.4) Test 05/11/19 08:59 05/11/19 11:42 05/11/19 16:47 05/11/19 20:40 Glucose (Fingerstick) 143 mg/dL (70-99) 221 mg/dL (70-99) 224 mg/dL (70-99) 241 mg/dL (70-99) Test 05/12/19 07:52 Glucose (Fingerstick) 275 mg/dL (70-99) Laboratory Tests Test 05/11/19 08:59 05/11/19 11:42 05/11/19 16:47 05/11/19 20:40 Glucose (Fingerstick) 143 mg/dL (70-99) 221 mg/dL (70-99) 224 mg/dL (70-99) 241 mg/dL (70-99) Test 05/12/19 07:52 Glucose (Fingerstick) 275 mg/dL (70-99) Medications Current Medications Sodium Chloride 1,000 ml @ 1,000 mls/hr 1X ONCE IV Last administered on 05/10/19at 17:25; Start 05/10/19 at 17:00; Stop 05/10/19 at 17:59; Status DC Prochlorperazine Edisylate (Compazine) 10 mg 1X ONCE IV Last administered on 05/10/19at 17:26; Start 05/10/19 at 17:30; Stop 05/10/19 at 17:31; Status DC Prochlorperazine Edisylate (Compazine) 10 mg STK-MED ONCE .ROUTE ; Start 05/10/19 at 17:22; Stop 05/10/19 at 17:22; Status DC Sodium Chloride 1,000 ml @ 1,000 mls/hr 1X ONCE IV Last administered on 05/10/19at 18:33; Start 05/10/19 at 18:15; Stop 05/10/19 at 19:14; Status DC Insulin Human Regular 100 ml @ 0 mls/hr CONT PRN PRN IV PER PROTOCOL Last administered on 05/11/19at 08:09; Start 05/10/19 at 18:15; Stop 05/11/19 at 08:45; Status DC Potassium Chloride/Water 100 ml @ 100 mls/hr PRN Q1HR PRN IV SEE COMMENTS; Start 05/10/19 at 18:15; Status Cancel Ondansetron HCl (Zofran) 4 mg 1X ONCE IV Last administered on 05/10/19at 20:39; Start 05/10/19 at 19:00; Stop 05/10/19 at 19:01; Status DC Ondansetron HCl (Zofran) 4 mg PRN Q8HRS PRN IV NAUSEA/VOMITING; Start 05/10/19 at 19:45; Stop 05/11/19 at 19:44; Status DC Morphine Sulfate (Morphine Sulfate) 4 mg PRN Q2HR PRN IV PAIN Last administered on 05/11/19at 19:11; Start 05/10/19 at 19:45; Stop 05/11/19 at 19:44; Status DC Sodium Chloride 500 ml @ 500 mls/hr 1X ONCE IV ; Start 05/10/19 at 21:30; Stop 05/10/19 at 21:30; Status DC Sodium Chloride 1,000 ml @ 1,000 mls/hr Q1H IV Last administered on 05/10/19at 21:39; Start 05/10/19 at 21:19; Stop 05/10/19 at 22:18; Status DC Sodium Chloride 1,000 ml @ 250 mls/hr Q4H IV Last administered on 05/10/19at 21:40; Start 05/10/19 at 21:22; Stop 05/11/19 at 00:48; Status DC Clindamycin Phosphate 50 ml @ 100 mls/hr 1X ONCE IV Last administered on 05/10/19at 21:57; Start 05/10/19 at 21:45; Stop 05/10/19 at 22:14; Status DC Potassium Chloride/Water 100 ml @ 100 mls/hr PRN Q1HR PRN IV SEE COMMENTS; Start 05/11/19 at 00:45 Dextrose/Sodium Chloride 1,000 ml @ 250 mls/hr Q4H IV Last administered on 05/11/19at 04:18; Start 05/11/19 at 00:45; Stop 05/11/19 at 14:20; Status DC Potassium Phosphate 10 mmol/ Sodium Chloride 103.3333 ml @ 51.667 m... Q2H IV Last administered on 05/11/19at 04:18; Start 05/11/19 at 01:00; Stop 05/11/19 at 04:59; Status DC Potassium Chloride/Water 100 ml @ 100 mls/hr Q1H IV Last administered on 05/11/19at 03:19; Start 05/11/19 at 01:45; Stop 05/11/19 at 03:44; Status DC Insulin Glargine (Lantus Syringe) 20 unit QHS SQ Last administered on 05/11/19at 20:45; Start 05/11/19 at 21:00 Insulin Human Lispro (HumaLOG) 0-5 UNITS TIDWMEALS SQ ; Start 05/11/19 at 12:00; Status UNV Insulin Human Lispro (HumaLOG) 0-9 UNITS TIDWMEALS SQ Last administered on 05/12/19at 07:56; Start 05/11/19 at 12:00 Dextrose (Dextrose 50%-Water Syringe) 12.5 gm PRN Q15MIN PRN IV SEE COMMENTS; Start 05/11/19 at 08:45 Levofloxacin/ Dextrose 100 ml @ 100 mls/hr Q24H IV Last administered on 05/11/19at 12:32; Start 05/11/19 at 12:00 Throat Lozenges (Cepacol Sore Throat Lozenge) 1 emily PRN Q2HRS PRN PO SORE THROAT Last administered on 05/11/19at 19:07; Start 05/11/19 at 12:00 Lactobacillus Rhamnosus (Culturelle) 1 cap BID PO Last administered on 05/11/19at 20:41; Start 05/11/19 at 21:00 Acetaminophen (Tylenol) 650 mg PRN Q6HRS PRN PO MILD PAIN/TEMP; Start 05/11/19 at 20:30 Ketorolac Tromethamine (Toradol 30mg Vial) 30 mg PRN Q6HRS PRN IVP PAIN Last administered on 05/12/19at 03:07; Start 05/11/19 at 20:30; Stop 05/16/19 at 20:29 Tramadol HCl (Ultram) 50 mg PRN Q6HRS PRN PO MODERATE - SEVERE PAIN Last administered on 05/12/19at 06:18; Start 05/11/19 at 20:30 Lidocaine HCl (Viscous Lidocaine) 15 ml PRN Q4HRS PRN SWSW MOUTH PAIN Last administered on 05/11/19at 22:15; Start 05/11/19 at 20:45 Active Scripts Active Ondansetron Hcl 4 Mg Tablet 1 Tab PO PRN Q6HRS PRN 3 Days Clindamycin Hcl 150 Mg Capsule 450 Mg PO TID 7 Days Doxycycline Hyclate 100 Mg Capsule 1 Cap PO BID 10 Days Ciprofloxacin Hcl 2.5 Ml Drops 1 Drop OU QID 7 Days Humalog (Insulin Lispro) 100 Unit/1 Ml Insuln.pen 10 Units SQ TIDWMEALS 30 Days Lantus Solostar (Insulin Glargine,Hum.rec.anlog) 100 Unit/1 Ml Insuln.pen 20 Units SQ QHS 30 Days Vitals/I & O Vital Sign - Last 24 Hours 05/11/19 05/11/19 05/11/19 05/11/19 09:00 10:00 11:00 14:33 Pulse 98 97 96 Resp 18 16 18 B/P (MAP) 113/62 (79) 100/60 (73) 101/67 (78) Pulse Ox 98 97 98 O2 Delivery Room Air Room Air Room Air Room Air 05/11/19 05/11/19 05/11/19 05/11/19 14:39 15:00 16:02 19:11 Temp 98.5 98.5 Pulse 91 Resp 16 20 B/P (MAP) 104/60 (75) Pulse Ox 96 96 O2 Delivery Room Air Room Air Room Air Room Air 05/11/19 05/11/19 05/11/19 05/11/19 19:13 19:41 20:00 22:06 Temp 98.1 98.1 Pulse 91 Resp 20 B/P (MAP) 117/82 (94) Pulse Ox 98 98 98 O2 Delivery Room Air Room Air Room Air Room Air 05/11/19 05/11/19 05/12/19 05/12/19 23:06 23:13 03:11 06:18 Temp 97.4 98.4 97.4 98.4 Pulse 83 86 Resp 20 20 B/P (MAP) 117/74 (88) 122/86 (98) Pulse Ox 95 95 98 98 O2 Delivery Room Air Room Air Room Air Room Air 05/12/19 05/12/19 07:00 07:29 Temp 98.5 98.5 Pulse 87 Resp 17 B/P (MAP) 130/85 (100) Pulse Ox 99 O2 Delivery Room Air Room Air Intake and Output 05/11/19 05/11/19 05/12/19 15:00 23:00 07:00 Intake Total 100 ml 180 ml Output Total 1450 ml Balance -1350 ml 180 ml IRASEMA KRAMER MD May 12, 2019 08:09
[2019-05-12] MEDS: LACTOBACILLUS RHAMNOSUS GG 1 CAPSULE. PO SCH ×2 (09:00→21:22)
[2019-05-12] MEDS: POTASSIUM & SODIUM PHOSPHATES PACKET. PO SCH (09:01)
--- NOTE | 2019-05-12 09:19 | NUR ---
SW following. Discussed with RN, pt has been provided self pay resources and diabetes resources. SW will continue to follow.
[2019-05-12] MEDS: ONDANSETRON PF 4 MG/2 ML VIAL. IVP PRN ×2 (09:30→22:50)
[2019-05-12 09:46] LABS: BASO % 0 % (0-3); EOS % 1 % (0-3); HEMATOCRIT 37.1 % (39.0-53.0); HEMOGLOBIN 12.7 g/dL (13.0-17.5); LYMPH # 1.7 x10^3/uL (1.0-4.8); LYMPH % 18 % (24-48); MEAN CORPUSCULAR HEMOGLOBIN 30 pg (25-35); MEAN CORPUSCULAR HGB CONC 34 g/dL (31-37); MEAN CORPUSCULAR VOLUME 86 fL (79-100); MONO # 1.1 x10^3/uL (0.0-1.1); MONO % 11 % (0-9); NEUT # 6.9 x10^3/uL (1.8-7.7); NEUT % 71 % (31-73); PLATELET COUNT 318 x10^3/uL (140-400); RED CELL DISTRIBUTION WIDTH 12.7 % (11.5-14.5); WHITE BLOOD COUNT 9.7 x10^3/uL (4.0-11.0)
[2019-05-12 09:54] LABS: ALBUMIN 2.8 g/dL (3.4-5.0); CALCIUM 8.5 mg/dL (8.5-10.1); CREATININE 0.6 mg/dL (0.7-1.3); GFR 160.4; MAGNESIUM 1.9 mg/dL (1.8-2.4); PHOSPHORUS 1.5 mg/dL (2.6-4.7); POTASSIUM 3.3 mmol/L (3.5-5.1)
[2019-05-12 11:00] VITALS: BP 125/82
[2019-05-12] MEDS: CLINDAMYCIN HCL 150 MG CAPSULE. PO SCH ×2 (13:36→21:23)
[2019-05-12 15:00] VITALS: BP 129/95
[2019-05-12] MEDS ORDERED: MORPHINE SULFATE 4 MG/ML VIAL. IV PRN (16:45)
[2019-05-12] MEDS: HYDROcodone/APAP 7.5/325MG 1 TAB TABLET PO PRN (16:54)
[2019-05-12 20:02] VITALS: BP 128/87
[2019-05-12] MEDS: INSULIN GLARGINE SYRINGE. SQ SCH (21:27)
[2019-05-13 03:00] VITALS: BP 130/92
[2019-05-13] MEDS: ONDANSETRON PF 4 MG/2 ML VIAL. IVP PRN (04:05)
[2019-05-13] MEDS: KETOROLAC 30 MG/ML VIAL. IVP PRN ×3 (04:05→17:32)
[2019-05-13 07:00] VITALS: BP 123/84
[2019-05-13] MEDS: LACTOBACILLUS RHAMNOSUS GG 1 CAPSULE. PO SCH ×2 (09:00→20:54)
[2019-05-13] MEDS: POTASSIUM & SODIUM PHOSPHATES PACKET. PO SCH (09:04)
[2019-05-13] MEDS: CLINDAMYCIN HCL 150 MG CAPSULE. PO SCH ×3 (09:04→20:54)
[2019-05-13] MEDS: INSULIN LISPRO 300 UNITS/3 ML VIAL. SQ SCH ×7 (09:15→20:53)
--- NOTE | 2019-05-13 09:57 | PDOC ---
PROGRESS NOTES Chief Complaint Chief Complaint impression DKA DM1 Hypophosphatemia Hypokalemia Hypomagnesemia Left mandibular cellulitis with severe dental caries - he is self pay, will ask DMD if he can evaluate. History of Present Illness History of Present Illness Mr Cortes is a 29 yo M w/ PMHx DM1 p/w abdominal pain via his mother with associated nausea and vomiting and some dental pain. He was evaluated on 05/10/19 for jaw pain, given clindamycin and left the ED. 2 visits prior the patient has been prescribed doxycycline for a left dental infection which has become much worse. CT neck - Visualized intracranial structures are unremarkable. Complete opacification of the left maxillary sinus. Extensive edema within the fat surrounding the left mandible. A discrete focal fluid collection is not identif ied. Numerous enlarged upper cervical lymph nodes are noted bilaterally greater on the left. Nasopharynx, oropharynx, hypopharynx and larynx are patent. Thyroid and salivary glands are unremarkable. Visualized lung apices are clear. No suspicious osseous lesions or acute fractures. IMPRESSION: 1. Soft tissue edema surrounding the left mandible without a discrete fluid collection identified. 2. Numerous upper cervical lymph nodes that are enlarged greater on the left, likely reactive to the above process. 3. Sinus disease as described above. Admitted to ICU in DKA on insulin drip this visit. Transferred from ICU . Phos 1.6, K3.5, Mg 1.8. Dental pain severe, but abdominal pain improved. Gap closed. Unable to open his mouth greater than 2cm. Has some lower left neck pain. Vitals Vitals Vital Signs Date Time Temp Pulse Resp B/P (MAP) Pulse Ox O2 Delivery O2 Flow Rate FiO2 05/13/19 07:00 98.7 77 19 123/84 (97) 97 Room Air 98.7 Physical Exam General: Alert, Oriented X3, Cooperative, mild distress Heart: Regular rate, Normal S1, Normal S2 Lungs: Clear Abdomen: Normal bowel sounds, Soft, No tenderness Extremities: No clubbing, No cyanosis, No edema Skin: No significant lesion Labs LABS Laboratory Tests Test 05/12/19 11:38 05/12/19 16:43 05/12/19 21:21 05/13/19 07:26 Glucose (Fingerstick) 263 mg/dL (70-99) 241 mg/dL (70-99) 131 mg/dL (70-99) 171 mg/dL (70-99) Assessment and Plan Assessmemt and Plan Problems Medical Problems: (1) Dental infection Status: Acute Comment Review of Relevant I have reviewed the following items cinthia (where applicable) has been applied. Labs Laboratory Tests Test 05/11/19 11:42 05/11/19 16:47 05/11/19 18:00 05/11/19 20:40 Glucose (Fingerstick) 221 mg/dL (70-99) 224 mg/dL (70-99) 241 mg/dL (70-99) Nasal Screen MRSA (PCR) Negative (Negative) Test 05/12/19 07:52 05/12/19 08:50 05/12/19 11:38 05/12/19 16:43 Glucose (Fingerstick) 275 mg/dL (70-99) 263 mg/dL (70-99) 241 mg/dL (70-99) White Blood Count 9.7 x10^3/uL (4.0-11.0) Red Blood Count 4.30 x10^6/uL (4.30-5.70) Hemoglobin 12.7 g/dL (13.0-17.5) Hematocrit 37.1 % (39.0-53.0) Mean Corpuscular Volume 86 fL (79-100) Mean Corpuscular Hemoglobin 30 pg (25-35) Mean Corpuscular Hemoglobin Concent 34 g/dL (31-37) Red Cell Distribution Width 12.7 % (11.5-14.5) Platelet Count 318 x10^3/uL (140-400) Neutrophils (%) (Auto) 71 % (31-73) Lymphocytes (%) (Auto) 18 % (24-48) Monocytes (%) (Auto) 11 % (0-9) Eosinophils (%) (Auto) 1 % (0-3) Basophils (%) (Auto) 0 % (0-3) Neutrophils # (Auto) 6.9 x10^3/uL (1.8-7.7) Lymphocytes # (Auto) 1.7 x10^3/uL (1.0-4.8) Monocytes # (Auto) 1.1 x10^3/uL (0.0-1.1) Eosinophils # (Auto) 0.0 x10^3/uL (0.0-0.7) Basophils # (Auto) 0.0 x10^3/uL (0.0-0.2) Sodium Level 135 mmol/L (136-145) Potassium Level 3.3 mmol/L (3.5-5.1) Chloride Level 100 mmol/L (98-107) Carbon Dioxide Level 25 mmol/L (21-32) Anion Gap 10 (6-14) Blood Urea Nitrogen 16 mg/dL (8-26) Creatinine 0.6 mg/dL (0.7-1.3) Estimated GFR (Cockcroft-Gault) 160.4 Glucose Level 352 mg/dL (70-99) Calcium Level 8.5 mg/dL (8.5-10.1) Phosphorus Level 1.5 mg/dL (2.6-4.7) Magnesium Level 1.9 mg/dL (1.8-2.4) Albumin 2.8 g/dL (3.4-5.0) Test 05/12/19 21:21 05/13/19 07:26 Glucose (Fingerstick) 131 mg/dL (70-99) 171 mg/dL (70-99) Laboratory Tests Test 05/12/19 11:38 05/12/19 16:43 05/12/19 21:21 05/13/19 07:26 Glucose (Fingerstick) 263 mg/dL (70-99) 241 mg/dL (70-99) 131 mg/dL (70-99) 171 mg/dL (70-99) Medications Current Medications Sodium Chloride 1,000 ml @ 1,000 mls/hr 1X ONCE IV Last administered on 05/10/19at 17:25; Start 05/10/19 at 17:00; Stop 05/10/19 at 17:59; Status DC Prochlorperazine Edisylate (Compazine) 10 mg 1X ONCE IV Last administered on 05/10/19at 17:26; Start 05/10/19 at 17:30; Stop 05/10/19 at 17:31; Status DC Prochlorperazine Edisylate (Compazine) 10 mg STK-MED ONCE .ROUTE ; Start 05/10/19 at 17:22; Stop 05/10/19 at 17:22; Status DC Sodium Chloride 1,000 ml @ 1,000 mls/hr 1X ONCE IV Last administered on 05/10/19at 18:33; Start 05/10/19 at 18:15; Stop 05/10/19 at 19:14; Status DC Insulin Human Regular 100 ml @ 0 mls/hr CONT PRN PRN IV PER PROTOCOL Last administered on 05/11/19at 08:09; Start 05/10/19 at 18:15; Stop 05/11/19 at 08:45; Status DC Potassium Chloride/Water 100 ml @ 100 mls/hr PRN Q1HR PRN IV SEE COMMENTS; Start 05/10/19 at 18:15; Status Cancel Ondansetron HCl (Zofran) 4 mg 1X ONCE IV Last administered on 05/10/19at 20:39; Start 05/10/19 at 19:00; Stop 05/10/19 at 19:01; Status DC Ondansetron HCl (Zofran) 4 mg PRN Q8HRS PRN IV NAUSEA/VOMITING; Start 05/10/19 at 19:45; Stop 05/11/19 at 19:44; Status DC Morphine Sulfate (Morphine Sulfate) 4 mg PRN Q2HR PRN IV PAIN Last administered on 05/11/19at 19:11; Start 05/10/19 at 19:45; Stop 05/11/19 at 19:44; Status DC Sodium Chloride 500 ml @ 500 mls/hr 1X ONCE IV ; Start 05/10/19 at 21:30; Stop 05/10/19 at 21:30; Status DC Sodium Chloride 1,000 ml @ 1,000 mls/hr Q1H IV Last administered on 05/10/19at 21:39; Start 05/10/19 at 21:19; Stop 05/10/19 at 22:18; Status DC Sodium Chloride 1,000 ml @ 250 mls/hr Q4H IV Last administered on 05/10/19at 21:40; Start 05/10/19 at 21:22; Stop 05/11/19 at 00:48; Status DC Clindamycin Phosphate 50 ml @ 100 mls/hr 1X ONCE IV Last administered on 05/10/19at 21:57; Start 05/10/19 at 21:45; Stop 05/10/19 at 22:14; Status DC Potassium Chloride/Water 100 ml @ 100 mls/hr PRN Q1HR PRN IV SEE COMMENTS; Start 05/11/19 at 00:45 Dextrose/Sodium Chloride 1,000 ml @ 250 mls/hr Q4H IV Last administered on 05/11/19at 04:18; Start 05/11/19 at 00:45; Stop 05/11/19 at 14:20; Status DC Potassium Phosphate 10 mmol/ Sodium Chloride 103.3333 ml @ 51.667 m... Q2H IV Last administered on 05/11/19at 04:18; Start 05/11/19 at 01:00; Stop 05/11/19 at 04:59; Status DC Potassium Chloride/Water 100 ml @ 100 mls/hr Q1H IV Last administered on 05/11/19at 03:19; Start 05/11/19 at 01:45; Stop 05/11/19 at 03:44; Status DC Insulin Glargine (Lantus Syringe) 20 unit QHS SQ Last administered on 05/12/19at 21:27; Start 05/11/19 at 21:00 Insulin Human Lispro (HumaLOG) 0-5 UNITS TIDWMEALS SQ ; Start 05/11/19 at 12:00; Status UNV Insulin Human Lispro (HumaLOG) 0-9 UNITS TIDWMEALS SQ Last administered on at 11:41; Start 05/11/19 at 12:00; Stop 05/12/19 at 16:46; Status DC Dextrose (Dextrose 50%-Water Syringe) 12.5 gm PRN Q15MIN PRN IV SEE COMMENTS; Start 05/11/19 at 08:45 Levofloxacin/ Dextrose 100 ml @ 100 mls/hr Q24H IV Last administered on 05/11at 11:51; Start 05/11/19 at 12:00 Throat Lozenges (Cepacol Sore Throat Lozenge) 1 emily PRN Q2HRS PRN PO SORE THROAT Last administered on 05/11/19at 19:07; Start 05/11/19 at 12:00 Lactobacillus Rhamnosus (Culturelle) 1 cap BID PO Last administered on 04/23 21:22; Start 05/11/19 at 21:00 Acetaminophen (Tylenol) 650 mg PRN Q6HRS PRN PO MILD PAIN/TEMP; Start 05/11/19 at 20:30 Ketorolac Tromethamine (Toradol 30mg Vial) 30 mg PRN Q6HRS PRN IVP PAIN Last administered on 05/13/19 04:05; Start 05/11/19 at 20:30; Stop 05/16/19 at 20:29 Tramadol HCl (Ultram) 50 mg PRN Q6HRS PRN PO MODERATE - SEVERE PAIN Last administered on 05/12/19 13:39; Start 05/11/19 at 20:30 Lidocaine HCl (Viscous Lidocaine) 15 ml PRN Q4HRS PRN SWSW MOUTH PAIN Last administered on 05/11/19 22:15; Start 05/11/19 at 20:45 Magnesium Sulfate 50 ml @ 25 mls/hr 1X ONCE IV Last administered on 05/12/19 09:02; Start 05/12/19 at 08:00; Stop 05/12/19 at 09:59; Status DC Potassium Phos/ Sodium Phos (Phos-Nak) 1 pkt DAILY PO Last administered on 05/13/19at 09:04; Start 05/12/19 at 09:00 Potassium Chloride (Klor-Con) 40 meq 1X ONCE PO Last administered on 05/12/19 09:01; Start 05/12/19 at 08:00; Stop 05/12/19 at 08:08; Status DC Ondansetron HCl (Zofran) 4 mg PRN Q4HRS PRN IVP NAUSEA/VOMITING Last administered on 05/13/19 04:05; Start 05/12/19 at 09:30 Clindamycin HCl (Cleocin) 300 mg TID PO Last administered on 05/13/19at 09:04; Start 05/12/19 at 14:00 Acetaminophen/ Hydrocodone Bitart (Lortab 7.5/325) 1 tab PRN Q6HRS PRN PO PAIN Last administered on 05/12/19 16:54; Start 05/12/19 at 16:45 Morphine Sulfate (Morphine Sulfate) 4 mg PRN Q8HRS PRN IV PAIN Last admin istered on 05/12/19 16:54; Start 05/12/19 at 16:45 Insulin Human Lispro (HumaLOG) 10 units TIDWMEALS SQ Last administered on at 09:16; Start 05/12/19 at 17:00 Insulin Human Lispro (HumaLOG) 0-9 UNITS TIDACHC SQ Last administered on 05/13/19at 09:15; Start 05/12/19 at 16:45 Active Scripts Active Ondansetron Hcl 4 Mg Tablet 1 Tab PO PRN Q6HRS PRN 3 Days Clindamycin Hcl 150 Mg Capsule 450 Mg PO TID 7 Days Doxycycline Hyclate 100 Mg Capsule 1 Cap PO BID 10 Days Ciprofloxacin Hcl 2.5 Ml Drops 1 Drop OU QID 7 Days Humalog (Insulin Lispro) 100 Unit/1 Ml Insuln.pen 10 Units SQ TIDWMEALS 30 Days Lantus Solostar (Insulin Glargine,Hum.rec.anlog) 100 Unit/1 Ml Insuln.pen 20 Units SQ QHS 30 Days Vitals/I & O Vital Sign - Last 24 Hours 05/12/19 05/12/19 05/12/19 05/12/19 11:00 13:39 15:00 15:11 Temp 98.2 98.4 98.2 98.4 Pulse 90 86 Resp 14 18 B/P (MAP) 125/82 (96) 129/95 (106) Pulse Ox 97 99 O2 Delivery Room Air Room Air Room Air Room Air 05/12/19 05/12/19 05/12/19 05/12/19 16:54 16:54 17:29 17:57 O2 Delivery Room Air Room Air Room Air Room Air 05/12/19 05/12/19 05/12/19 05/13/19 20:00 20:02 23:51 03:00 Temp 98.4 98.0 98.0 98.4 98.0 98.0 Pulse 85 88 Resp 18 16 16 B/P (MAP) 128/87 (101) 130/92 (105) Pulse Ox 98 97 97 O2 Delivery Room Air Room Air Room Air Room Air 05/13/19 07:00 Temp 98.7 98.7 Pulse 77 Resp 19 B/P (MAP) 123/84 (97) Pulse Ox 97 O2 Delivery Room Air Intake and Output 05/12/19 05/12/19 05/13/19 15:00 23:00 07:00 Intake Total 350 ml 180 ml Balance 350 ml 180 ml JOSE BURNS MD May 13, 2019 09:57
[2019-05-13 11:00] VITALS: BP 116/80
[2019-05-13] MEDS: HYDROcodone/APAP 7.5/325MG 1 TAB TABLET PO PRN ×2 (14:49→20:54)
[2019-05-13 15:00] VITALS: BP 118/74
[2019-05-13 19:00] VITALS: BP 117/84
[2019-05-13] MEDS: INSULIN GLARGINE SYRINGE. SQ SCH (21:03)
[2019-05-13 23:01] VITALS: BP 137/84
[2019-05-14] MEDS: traMADol 50 MG TABLET PO PRN (00:03)
[2019-05-14 03:25] VITALS: BP 132/92
[2019-05-14] MEDS: KETOROLAC 30 MG/ML VIAL. IVP PRN ×2 (03:36→16:55)
[2019-05-14 05:23] LABS: BASO % 0 % (0-3); EOS # 0.1 x10^3/uL (0.0-0.7); EOS % 1 % (0-3); HEMATOCRIT 33.4 % (39.0-53.0); HEMOGLOBIN 11.5 g/dL (13.0-17.5); LYMPH # 1.7 x10^3/uL (1.0-4.8); LYMPH % 15 % (24-48); MEAN CORPUSCULAR HEMOGLOBIN 30 pg (25-35); MEAN CORPUSCULAR HGB CONC 35 g/dL (31-37); MEAN CORPUSCULAR VOLUME 86 fL (79-100); MONO % 9 % (0-9); NEUT # 8.4 x10^3/uL (1.8-7.7); NEUT % 75 % (31-73); PLATELET COUNT 329 x10^3/uL (140-400); RED BLOOD COUNT 3.89 x10^6/uL (4.30-5.70); RED CELL DISTRIBUTION WIDTH 12.4 % (11.5-14.5); WHITE BLOOD COUNT 11.2 x10^3/uL (4.0-11.0)
[2019-05-14 05:56] LABS: ALBUMIN 2.2 g/dL (3.4-5.0); ALBUMIN/GLOBULIN RATIO 0.7 (1.0-1.7); CALCIUM 8.2 mg/dL (8.5-10.1); CREATININE 0.5 mg/dL (0.7-1.3); TOTAL BILIRUBIN 0.4 mg/dL (0.2-1.0); TOTAL PROTEIN 5.3 g/dL (6.4-8.2)
[2019-05-14 06:04] LABS: POTASSIUM 2.8 mmol/L (3.5-5.1)
[2019-05-14] MEDS: INSULIN LISPRO 300 UNITS/3 ML VIAL. SQ SCH ×7 (07:30→20:53)
[2019-05-14] MEDS: POTASSIUM CHLORIDE 10MEQ 100 ML IV SCH ×3 (07:53→09:59)
[2019-05-14 07:59] VITALS: BP 134/92
[2019-05-14] MEDS: LACTOBACILLUS RHAMNOSUS GG 1 CAPSULE. PO SCH ×2 (09:17→20:51)
[2019-05-14] MEDS: CLINDAMYCIN HCL 150 MG CAPSULE. PO SCH ×2 (09:17→15:32)
[2019-05-14] MEDS: POTASSIUM & SODIUM PHOSPHATES PACKET. PO SCH (09:17)
[2019-05-14] MEDS: HYDROcodone/APAP 7.5/325MG 1 TAB TABLET PO PRN ×2 (11:47→20:51)
[2019-05-14 11:59] VITALS: BP 143/96
--- NOTE | 2019-05-14 12:31 | PDOC ---
PROGRESS NOTES Chief Complaint Chief Complaint impression DKA DM1 Hypophosphatemia Hypokalemia Hypomagnesemia Left mandibular cellulitis with severe dental caries - CT 05/13 Left mandible most posterior molar has a dental francisco and periapical lytic lesion disrupting the medial alveolar mandible cortex consistent with abscess with an associated 3 cm soft tissue abscess at the left sublingual space and submandibular space extending beneath the mandible tooth deep aspect of the masseter muscle which is enlarged which could be indicative of myositis.. HYPOKALEMIA, ON IV REPLACEMENT 05/[address] snow History of Present Illness History of Present Illness Mr Cortes is a 29 yo M w/ PMHx DM1 p/w abdominal pain via his mother with associated nausea and vomiting and dental pain. He was evaluated on 05/10/19 for jaw pain, given clindamycin and left the ED. 2 visits prior the patient has been prescribed doxycycline for a left dental i nfection which has become much worse. CT neck - Visualized intracranial structures are unremarkable. Complete opacification of the left maxillary sinus. Extensive edema within the fat surrounding the left mandible. A discrete focal fluid collection is not identified. Numerous enlarged upper cervical lymph nodes are noted bilaterally greater on the left. Nasopharynx, oropharynx, hypopharynx and larynx are patent. Thyroid and salivary glands are unremarkable. Visualized lung apices are clear. No suspicious osseous lesions or acute fractures. IMPRESSION: 1. Soft tissue edema surrounding the left mandible without a discrete fluid col lection identified. 2. Numerous upper cervical lymph nodes that are enlarged greater on the left, likely reactive to the above process. 3. Sinus disease as described Admitted to ICU in DKA on insulin drip this visit. 05/12 Transferred from ICU . Phos 1.6, K3.5, Mg 1.8. Dental pain severe, but abdominal pain improved. Gap closed. Unable to open his mouth greater than 2cm. Has some lower left neck pain. 05/13 K REPLACED IV , consult dr SNOW oral surgery , plan CT SOFT TISSUES OF NECK, constant bedside pulse oximetry, switch clindamycin to iv 37 min pt exam, chart review, > 50% of time spent with exam, chart review, pt care coordination Vitals Vitals Vital Signs Date Time Temp Pulse Resp B/P (MAP) Pulse Ox O2 Delivery O2 Flow Rate FiO2 05/14/19 11:47 19 100 Room Air 3/22/20 07:59 99.2 80 134/92 (106) 99.2 Physical Exam General: Alert, Oriented X3, Cooperative, mild distress Heart: Regular rate, Normal S1, Normal S2 Lungs: Clear Abdomen: Normal bowel sounds, Soft, No tenderness, No hepatosplenomegaly Extremities: No clubbing, No cyanosis, No edema Skin: No significant lesion Labs LABS CT neck with contrast HISTORY: Left facial swelling, dental infection, abscess. Contrast: 70 mL Omnipaque 300 intravenous contrast. FINDINGS: The left mandible most posterior molar demonstrates a dense appearing and periapical lucency which erodes and focally disrupt the medial alveolar cortex of the mandible consistent with a periapical abscess, there is surrounding periosteal soft tissue abscess within the floor the mouth lateral the time with a rim-enhancing loculated fluid collection which measures 3.5 cm AP by 3 cm transverse by 2 cm craniocaudal, the collection extends medial and inferior of the angle of the mandible to the deep aspect of the left masseter muscle which is asymmetrically enlarged and edematous which could indicate myositis or reactive changes. There is also soft tissue edema and swelling at the lower aspect of the left drug abuse treatment specialist pterygoid muscles which contributes to mild narrowing of the airway at the left aspect of the pharynx. Enlarged left submandibular hypervascular lymph nodes measuring up to 2 cm likely lymphadenitis as well as upper jugular chain adenitis. The nasopharynx, thyroid, larynx and lung bases are unremarkable. There is marked focal narrowing of the left internal jugular vein due to mass effect and swelling compressing the vein without a thrombus evident. Left maxillary sinus cyst. Bone lysis stranding the mandible central incisors. IMPRESSION: 1. Left mandible most posterior molar has a dental francisco and periapical lytic lesion disrupting the medial alveolar mandible cortex consistent with abscess with an associated 3 cm soft tissue abscess at the left sublingual space and submandibular space extending beneath the mandible to the deep aspect of the masseter muscle which is enlarged which could be indicative of myositis. 2. Enlarged hypervascular left submandibular and jugular chain lymph nodes consistent with lymphadenitis. 3. There is mild narrowing of the pharynx due to the edema and swelling of the tissues surrounding the abscess. 4. Periapical lucencies about the mandible central incisors could represent additional periapical cysts or abscess. Exposure: One or more of the following individualized dose reduction techniques were utilized for this examination: 1. Automated exposure control 2. Adjustment of the mA and/or kV according to patient size 3. Use of iterative reconstruction technique Electronically signed by: Rosa Maria Singh MD (05/14/2019 3:17 PM) [id number] DICTATED and SIGNED BY: ROSA MARIA SINGH MD DATE: 05/14/19 151 Exam: CT soft tissue neck with contrast INDICATION: Left facial/dental abscess TECHNIQUE: Sequential axial images through the neck obtained following the administration of 70 mL of Omni 300 IV contrast. Sagittal and coronal reformatted images were reconstructed from the axial data and reviewed. Comparisons: None FINDINGS: Visualized intracranial structures are unremarkable. Complete opacification of the left maxillary sinus. Extensive edema within the fat surrounding the left mandible. A discrete focal fluid collection is not identified. Numerous enlarged upper cervical lymph nodes are noted bilaterally greater on the left. Nasopharynx, oropharynx, hypopharynx and larynx are patent. Thyroid and salivary glands are unremarkable. Visualized lung apices are clear. No suspicious osseous lesions or acute fractures. IMPRESSION: 1. Soft tissue edema surrounding the left mandible without a discrete fluid collection identified. 2. Numerous upper cervical lymph nodes that are enlarged greater on the left, likely reactive to the above process. 3. Sinus disease as described above. Exposure: One or more of the following in the visualized dose reduction techniques were utilized for this examination: 1. Automated exposure control 2. Adjustment of the MA and/or KV according to patient size 3. Use of iterative of reconstructive technique Electronically signed by: Kendy Charles MD (05/09/2019 9:21 PM) [id number] DICTATED and SIGNED BY: KENDY CHARLES MD DATE: 05/09/192120 Laboratory Tests Test 05/13/19 17:26 05/13/19 20:52 05/14/19 04:40 05/14/19 07:37 Glucose (Fingerstick) 181 mg/dL (70-99) 139 mg/dL (70-99) 136 mg/dL (70-99) White Blood Count 11.2 x10^3/uL (4.0-11.0) Red Blood Count 3.89 x10^6/uL (4.30-5.70) Hemoglobin 11.5 g/dL (13.0-17.5) Hematocrit 33.4 % (39.0-53.0) Mean Corpuscular Volume 86 fL (79-100) Mean Corpuscular Hemoglobin 30 pg (25-35) Mean Corpuscular Hemoglobin Concent 35 g/dL (31-37) Red Cell Distribution Width 12.4 % (11.5-14.5) Platelet Count 329 x10^3/uL (140-400) Neutrophils (%) (Auto) 75 % (31-73) Lymphocytes (%) (Auto) 15 % (24-48) Monocytes (%) (Auto) 9 % (0-9) Eosinophils (%) (Auto) 1 % (0-3) Basophils (%) (Auto) 0 % (0-3) Neutrophils # (Auto) 8.4 x10^3/uL (1.8-7.7) Lymphocytes # (Auto) 1.7 x10^3/uL (1.0-4.8) Monocytes # (Auto) 1.0 x10^3/uL (0.0-1.1) Eosinophils # (Auto) 0.1 x10^3/uL (0.0-0.7) Basophils # (Auto) 0.0 x10^3/uL (0.0-0.2) Sodium Level 143 mmol/L (136-145) Potassium Level 2.8 mmol/L (3.5-5.1) Chloride Level 104 mmol/L (98-107) Carbon Dioxide Level 31 mmol/L (21-32) Anion Gap 8 (6-14) Blood Urea Nitrogen 10 mg/dL (8-26) Creatinine 0.5 mg/dL (0.7-1.3) Estimated GFR (Cockcroft-Gault) 198.0 BUN/Creatinine Ratio 20 (6-20) Glucose Level 169 mg/dL (70-99) Calcium Level 8.2 mg/dL (8.5-10.1) Total Bilirubin 0.4 mg/dL (0.2-1.0) Aspartate Amino Transf (AST/SGOT) 11 U/L (15-37) Alanine Aminotransferase (ALT/SGPT) 15 U/L (16-63) Alkaline Phosphatase 75 U/L (46-116) Total Protein 5.3 g/dL (6.4-8.2) Albumin 2.2 g/dL (3.4-5.0) Albumin/Globulin Ratio 0.7 (1.0-1.7) Test 05/14/19 11:46 Glucose (Fingerstick) 135 mg/dL (70-99) Assessment and Plan Assessmemt and Plan Problems Medical Problems: (1) Dental infection Status: Acute Comment Review of Relevant I have reviewed the following items cinthia (where applicable) has been applied. Labs Laboratory Tests Test 05/12/19 16:43 05/12/19 21:21 05/13/19 07:26 05/13/19 11:53 Glucose (Fingerstick) 241 mg/dL (70-99) 131 mg/dL (70-99) 171 mg/dL (70-99) 179 mg/dL (70-99) Test 05/13/19 17:26 05/13/19 20:52 05/14/19 04:40 05/14/19 07:37 Glucose (Fingerstick) 181 mg/dL (70-99) 139 mg/dL (70-99) 136 mg/dL (70-99) White Blood Count 11.2 x10^3/uL (4.0-11.0) Red Blood Count 3.89 x10^6/uL (4.30-5.70) Hemoglobin 11.5 g/dL (13.0-17.5) Hematocrit 33.4 % (39.0-53.0) Mean Corpuscular Volume 86 fL (79-100) Mean Corpuscular Hemoglobin 30 pg (25-35) Mean Corpuscular Hemoglobin Concent 35 g/dL (31-37) Red Cell Distribution Width 12.4 % (11.5-14.5) Platelet Count 329 x10^3/uL (140-400) Neutrophils (%) (Auto) 75 % (31-73) Lymphocytes (%) (Auto) 15 % (24-48) Monocytes (%) (Auto) 9 % (0-9) Eosinophils (%) (Auto) 1 % (0-3) Basophils (%) (Auto) 0 % (0-3) Neutrophils # (Auto) 8.4 x10^3/uL (1.8-7.7) Lymphocytes # (Auto) 1.7 x10^3/uL (1.0-4.8) Monocytes # (Auto) 1.0 x10^3/uL (0.0-1.1) Eosinophils # (Auto) 0.1 x10^3/uL (0.0-0.7) Basophils # (Auto) 0.0 x10^3/uL (0.0-0.2) Sodium Level 143 mmol/L (136-145) Potassium Level 2.8 mmol/L (3.5-5.1) Chloride Level 104 mmol/L (98-107) Carbon Dioxide Level 31 mmol/L (21-32) Anion Gap 8 (6-14) Blood Urea Nitrogen 10 mg/dL (8-26) Creatinine 0.5 mg/dL (0.7-1.3) Estimated GFR (Cockcroft-Gault) 198.0 BUN/Creatinine Ratio 20 (6-20) Glucose Level 169 mg/dL (70-99) Calcium Level 8.2 mg/dL (8.5-10.1) Total Bilirubin 0.4 mg/dL (0.2-1.0) Aspartate Amino Transf (AST/SGOT) 11 U/L (15-37) Alanine Aminotransferase (ALT/SGPT) 15 U/L (16-63) Alkaline Phosphatase 75 U/L (46-116) Total Protein 5.3 g/dL (6.4-8.2) Albumin 2.2 g/dL (3.4-5.0) Albumin/Globulin Ratio 0.7 (1.0-1.7) Test 05/14/19 11:46 Glucose (Fingerstick) 135 mg/dL (70-99) Laboratory Tests Test 05/13/19 17:26 05/13/19 20:52 05/14/19 04:40 05/14/19 07:37 Glucose (Fingerstick) 181 mg/dL (70-99) 139 mg/dL (70-99) 136 mg/dL (70-99) White Blood Count 11.2 x10^3/uL (4.0-11.0) Red Blood Count 3.89 x10^6/uL (4.30-5.70) Hemoglobin 11.5 g/dL (13.0-17.5) Hematocrit 33.4 % (39.0-53.0) Mean Corpuscular Volume 86 fL (79-100) Mean Corpuscular Hemoglobin 30 pg (25-35) Mean Corpuscular Hemoglobin Concent 35 g/dL (31-37) Red Cell Distribution Width 12.4 % (11.5-14.5) Platelet Count 329 x10^3/uL (140-400) Neutrophils (%) (Auto) 75 % (31-73) Lymphocytes (%) (Auto) 15 % (24-48) Monocytes (%) (Auto) 9 % (0-9) Eosinophils (%) (Auto) 1 % (0-3) Basophils (%) (Auto) 0 % (0-3) Neutrophils # (Auto) 8.4 x10^3/uL (1.8-7.7) Lymphocytes # (Auto) 1.7 x10^3/uL (1.0-4.8) Monocytes # (Auto) 1.0 x10^3/uL (0.0-1.1) Eosinophils # (Auto) 0.1 x10^3/uL (0.0-0.7) Basophils # (Auto) 0.0 x10^3/uL (0.0-0.2) Sodium Level 143 mmol/L (136-145) Potassium Level 2.8 mmol/L (3.5-5.1) Chloride Level 104 mmol/L (98-107) Carbon Dioxide Level 31 mmol/L (21-32) Anion Gap 8 (6-14) Blood Urea Nitrogen 10 mg/dL (8-26) Creatinine 0.5 mg/dL (0.7-1.3) Estimated GFR (Cockcroft-Gault) 198.0 BUN/Creatinine Ratio 20 (6-20) Glucose Level 169 mg/dL (70-99) Calcium Level 8.2 mg/dL (8.5-10.1) Total Bilirubin 0.4 mg/dL (0.2-1.0) Aspartate Amino Transf (AST/SGOT) 11 U/L (15-37) Alanine Aminotransferase (ALT/SGPT) 15 U/L (16-63) Alkaline Phosphatase 75 U/L (46-116) Total Protein 5.3 g/dL (6.4-8.2) Albumin 2.2 g/dL (3.4-5.0) Albumin/Globulin Ratio 0.7 (1.0-1.7) Test 05/14/19 11:46 Glucose (Fingerstick) 135 mg/dL (70-99) Medications Current Medications Sodium Chloride 1,000 ml @ 1,000 mls/hr 1X ONCE IV Last administered on 05/10/19at 17:25; Start 05/10/19 at 17:00; Stop 05/10/19 at 17:59; Status DC Prochlorperazine Edisylate (Compazine) 10 mg 1X ONCE IV Last administered on 05/10/19at 17:26; Start 05/10/19 at 17:30; Stop 05/10/19 at 17:31; Status DC Prochlorperazine Edisylate (Compazine) 10 mg STK-MED ONCE .ROUTE ; Start 05/10/19 at 17:22; Stop 05/10/19 at 17:22; Status DC Sodium Chloride 1,000 ml @ 1,000 mls/hr 1X ONCE IV Last administered on 05/10/19at 18:33; Start 05/10/19 at 18:15; Stop 05/10/19 at 19:14; Status DC Insulin Human Regular 100 ml @ 0 mls/hr CONT PRN PRN IV PER PROTOCOL Last administered on 05/11/19at 08:09; Start 05/10/19 at 18:15; Stop 05/11/19 at 08:45; Status DC Potassium Chloride/Water 100 ml @ 100 mls/hr PRN Q1HR PRN IV SEE COMMENTS; Start 05/10/19 at 18:15; Status Cancel Ondansetron HCl (Zofran) 4 mg 1X ONCE IV Last administered on 05/10/19at 20:39; Start 05/10/19 at 19:00; Stop 05/10/19 at 19:01; Status DC Ondansetron HCl (Zofran) 4 mg PRN Q8HRS PRN IV NAUSEA/VOMITING; Start 05/10/19 at 19:45; Stop 05/11/19 at 19:44; Status DC Morphine Sulfate (Morphine Sulfate) 4 mg PRN Q2HR PRN IV PAIN Last administered on 05/11/19at 19:11; Start 05/10/19 at 19:45; Stop 05/11/19 at 19:44; Status DC Sodium Chloride 500 ml @ 500 mls/hr 1X ONCE IV ; Start 05/10/19 at 21:30; Stop 05/10/19 at 21:30; Status DC Sodium Chloride 1,000 ml @ 1,000 mls/hr Q1H IV Last administered on 05/10/19at 21:39; Start 05/10/19 at 21:19; Stop 05/10/19 at 22:18; Status DC Sodium Chloride 1,000 ml @ 250 mls/hr Q4H IV Last administered on 05/10/19at 21:40; Start 05/10/19 at 21:22; Stop 05/11/19 at 00:48; Status DC Clindamycin Phosphate 50 ml @ 100 mls/hr 1X ONCE IV Last administered on 05/10/19at 21:57; Start 05/10/19 at 21:45; Stop 05/10/19 at 22:14; Status DC Potassium Chloride/Water 100 ml @ 100 mls/hr PRN Q1HR PRN IV SEE COMMENTS; Start 05/11/19 at 00:45 Dextrose/Sodium Chloride 1,000 ml @ 250 mls/hr Q4H IV Last administered on 05/11/19at 04:18; Start 05/11/19 at 00:45; Stop 05/11/19 at 14:20; Status DC Potassium Phosphate 10 mmol/ Sodium Chloride 103.3333 ml @ 51.667 m... Q2H IV Last administered on 05/11/19at 04:18; Start 05/11/19 at 01:00; Stop 05/11/19 at 04:59; Status DC Potassium Chloride/Water 100 ml @ 100 mls/hr Q1H IV Last administered on 05/11/19at 03:19; Start 05/11/19 at 01:45; Stop 05/11/19 at 03:44; Status DC Insulin Glargine (Lantus Syringe) 20 unit QHS SQ Last administered on 05/13/19at 21:03; Start 05/11/19 at 21:00 Insulin Human Lispro (HumaLOG) 0-5 UNITS TIDWMEALS SQ ; Start 05/11/19 at 12:00; Status UNV Insulin Human Lispro (HumaLOG) 0-9 UNITS TIDWMEALS SQ Last administered on 05/12/19at 11:41; Start 05/11/19 at 12:00; Stop 05/12/19 at 16:46; Status DC Dextrose (Dextrose 50%-Water Syringe) 12.5 gm PRN Q15MIN PRN IV SEE COMMENTS; Start 05/11/19 at 08:45 Levofloxacin/ Dextrose 100 ml @ 100 mls/hr Q24H IV Last administered on 05/13/19at 11:58; Start 05/11/19 at 12:00 Throat Lozenges (Cepacol Sore Throat Lozenge) 1 emily PRN Q2HRS PRN PO SORE THROAT Last administered on 05/11/19at 19:07; Start 05/11/19 at 12:00 Lactobacillus Rhamnosus (Culturelle) 1 cap BID PO Last administered on 05/14/19 09:17; Start 05/11/19 at 21:00 Acetaminophen (Tylenol) 650 mg PRN Q6HRS PRN PO MILD PAIN/TEMP Last administered on 05/14/19 09:21; Start 05/11/19 at 20:30 Ketorolac Tromethamine (Toradol 30mg Vial) 30 mg PRN Q6HRS PRN IVP PAIN Last administered on 05/14/19 03:36; Start 05/11/19 at 20:30; Stop 05/16/19 at 20:29 Tramadol HCl (Ultram) 50 mg PRN Q6HRS PRN PO MODERATE - SEVERE PAIN Last administered on 05/14/19 00:03; Start 05/11/19 at 20:30 Lidocaine HCl (Viscous Lidocaine) 15 ml PRN Q4HRS PRN SWSW MOUTH PAIN Last administered on 05/11/19 22:15; Start 05/11/19 at 20:45 Magnesium Sulfate 50 ml @ 25 mls/hr 1X ONCE IV Last administered on 05/12/19 09:02; Start 05/12/19 at 08:00; Stop 05/12/19 at 09:59; Status DC Potassium Phos/ Sodium Phos (Phos-Nak) 1 pkt DAILY PO Last administered on 05/14/19 09:17; Start 05/12/19 at 09:00 Potassium Chloride (Klor-Con) 40 meq 1X ONCE PO Last administered on 05/12/19 09:01; Start 05/12/19 at 08:00; Stop 05/12/19 at 08:08; Status DC Ondansetron HCl (Zofran) 4 mg PRN Q4HRS PRN IVP NAUSEA/VOMITING Last administered on 3/21/20at 04:05; Start 05/12/19 at 09:30 Clindamycin HCl (Cleocin) 300 mg TID PO Last administered on 05/14/19at 09:17; Start 05/12/19 at 14:00 Acetaminophen/ Hydrocodone Bitart (Lortab 7.5/325) 1 tab PRN Q6HRS PRN PO PAIN Last administered on 05/14/19at 11:47; Start 05/12/19 at 16:45 Morphine Sulfate (Morphine Sulfate) 4 mg PRN Q8HRS PRN IV PAIN Last administered on 05/12/19at 16:54; Start 05/12/19 at 16:45 Insulin Human Lispro (HumaLOG) 10 units TIDWMEALS SQ Last administered on 05/14/19at 11:53; Start 05/12/19 at 17:00 Insulin Human Lispro (HumaLOG) 0-9 UNITS TIDACHC SQ Last administered on 05/13/19at 17:39; Start 05/12/19 at 16:45 Potassium Chloride/Water 100 ml @ 100 mls/hr Q1H IV Last administered on 05/14/19at 09:00; Start 05/14/19 at 07:00; Stop 05/14/19 at 09:59; Status DC Active Scripts Active Ondansetron Hcl 4 Mg Tablet 1 Tab PO PRN Q6HRS PRN 3 Days Clindamycin Hcl 150 Mg Capsule 450 Mg PO TID 7 Days Doxycycline Hyclate 100 Mg Capsule 1 Cap PO BID 10 Days Ciprofloxacin Hcl 2.5 Ml Drops 1 Drop OU QID 7 Days Humalog (Insulin Lispro) 100 Unit/1 Ml Insuln.pen 10 Units SQ TIDWMEALS 30 Days Lantus Solostar (Insulin Glargine,Hum.rec.anlog) 100 Unit/1 Ml Insuln.pen 20 Units SQ QHS 30 Days Vitals/I & O Vital Sign - Last 24 Hours 05/13/19 05/13/19 05/13/19 05/13/19 14:49 15:00 16:00 19:00 Temp 99.3 98.1 99.3 98.1 Pulse 82 78 Resp 19 19 20 20 B/P (MAP) 118/74 (89) 117/84 (95) Pulse Ox 93 98 94 97 O2 Delivery Room Air Room Air Room Air Room Air 05/13/19 05/13/19 05/13/19 05/14/19 20:00 20:54 23:01 00:03 Temp 99.3 99.3 Pulse 89 Resp 18 B/P (MAP) 137/84 (101) Pulse Ox 97 98 98 O2 Delivery Room Air Room Air Room Air Room Air 05/14/19 05/14/19 05/14/19 05/14/19 03:25 07:59 08:00 11:47 Temp 99.7 99.2 99.7 99.2 Pulse 82 80 Resp 18 22 19 B/P (MAP) 132/92 (105) 134/92 (106) Pulse Ox 96 95 100 O2 Delivery Room Air Room Air Room Air Room Air Intake and Output 05/13/19 05/13/19 05/14/19 15:00 23:00 07:00 Intake Total 720 ml 700 ml Balance 720 ml 700 ml JOSE BURNS MD May 14, 2019 12:30
[2019-05-14] MEDS ORDERED: IV NORMAL SALINE 1000ML BAG 1,000 ML IV ONE (13:15)
--- NOTE | 2019-05-14 14:00 | NUR ---
DISCHARGE INSTRUCTIONS GIVEN, QUESTIONS AND CONCERNS ANSWERED, PATIENT VERBALIZED UNDERSTANDING OF DISCHARGE INFORMATION INCLUDING TAKING ALL MEDICATIONS INSTRUCTED AND FOLLOWING UP WITH DR. CHANDLER IN 4-6 WEEKS FOR FOLLOW UP CAT SCAN, PATIENT AGREED. ALL PERSONAL BELONGINGS GATHERED BY THE PATIENT AND PLACED IN BAGS FOR DISCHARGE, DRESSING CHANGE COMPLETED TO LEFT LOWER BACK PER THIS HOSE TENDER AND SALINE LOCK REMOVED PER RIVKA. Addendum: 05/14/19 at 1446 by BRIAN DAI RN PLEASE DISREGARD THE PREVIOUS NOTE IT WAS ENTERED IN ERROR ON THIS PATIENT.
[2019-05-14] MEDS ORDERED: IOHEXOL 300 MG/ML 100ML VIAL. IV ONE (14:15)
[2019-05-14] MEDS ORDERED: CONTRAST GIVEN. MC PRN (14:15)
--- NOTE | 2019-05-14 14:35 | NUR ---
PATIENT LEAVES THE UNIT PER W/C AND ACCOMPANIED BY FLOOR LAYER HELPER ON THE UNIT, EMOTIONAL SUPPORT GIVEN, FOLLOW UP APPOINTMENTS ENCOURAGED. Addendum: 05/14/19 at 1445 by BRIAN DAI RN PLEASE DISREGARD THE PREVIOUS NOTE IT WAS ENTERED IN ERROR ON THIS PATIENT.
--- NOTE | 2019-05-14 15:20 | RAD ---
CT neck with contrast HISTORY: Left facial swelling, dental infection, abscess. Contrast: 70 mL Omnipaque 300 intravenous contrast. FINDINGS: The left mandible most posterior molar demonstrates a dense appearing and periapical lucency which erodes and focally disrupt the medial alveolar cortex of the mandible consistent with a periapical abscess, there is surrounding periosteal soft tissue abscess within the floor the mouth lateral the time with a rim-enhancing loculated fluid collection which measures 3.5 cm AP by 3 cm transverse by 2 cm craniocaudal, the collection extends medial and inferior of the angle of the mandible to the deep aspect of the left masseter muscle which is asymmetrically enlarged and edematous which could indicate myositis or reactive changes. There is also soft tissue edema and swelling at the lower aspect of the left mix house tender pterygoid muscles which contributes to mild narrowing of the airway at the left aspect of the pharynx. Enlarged left submandibular hypervascular lymph nodes measuring up to 2 cm likely lymphadenitis as well as upper jugular chain adenitis. The nasopharynx, thyroid, larynx and lung bases are unremarkable. There is marked focal narrowing of the left internal jugular vein due to mass effect and swelling compressing the vein without a thrombus evident. Left maxillary sinus cyst. Bone lysis stranding the mandible central incisors. IMPRESSION: 1. Left mandible most posterior molar has a dental francisco and periapical lytic lesion disrupting the medial alveolar mandible cortex consistent with abscess with an associated 3 cm soft tissue abscess at the left sublingual space and submandibular space extending beneath the mandible to the deep aspect of the masseter muscle which is enlarged which could be indicative of myositis. 2. Enlarged hypervascular left submandibular and jugular chain lymph nodes consistent with lymphadenitis. 3. There is mild narrowing of the pharynx due to the edema and swelling of the tissues surrounding the abscess. 4. Periapical lucencies about the mandible central incisors could represent additional periapical cysts or abscess. Exposure: One or more of the following individualized dose reduction techniques were utilized for this examination: 1. Automated exposure control 2. Adjustment of the mA and/or kV according to patient size 3. Use of iterative reconstruction technique Electronically signed by: Elpidio Singh MD (05/14/2019 3:17 PM) [id number]
[2019-05-14 15:59] VITALS: BP 139/95
[2019-05-14 19:00] VITALS: BP 115/82
[2019-05-14] MEDS: CLINDAMYCIN 600MG PREMIX 50 ML IV SCH (20:54)
[2019-05-14] MEDS: INSULIN GLARGINE SYRINGE. SQ SCH (21:00)
[2019-05-14 23:00] VITALS: BP 118/80
[2019-05-15] MEDS: KETOROLAC 30 MG/ML VIAL. IVP PRN ×3 (00:14→13:36)
[2019-05-15 03:00] VITALS: BP 127/90
[2019-05-15 04:51] LABS: BASO # 0.1 x10^3/uL (0.0-0.2); BASO % 0 % (0-3); EOS # 0.4 x10^3/uL (0.0-0.7); EOS % 3 % (0-3); HEMOGLOBIN 11.7 g/dL (13.0-17.5); LYMPH # 2.4 x10^3/uL (1.0-4.8); LYMPH % 17 % (24-48); MEAN CORPUSCULAR HEMOGLOBIN 30 pg (25-35); MEAN CORPUSCULAR HGB CONC 34 g/dL (31-37); MEAN CORPUSCULAR VOLUME 86 fL (79-100); MONO # 1.4 x10^3/uL (0.0-1.1); MONO % 10 % (0-9); NEUT # 9.7 x10^3/uL (1.8-7.7); NEUT % 69 % (31-73); PLATELET COUNT 396 x10^3/uL (140-400); RED BLOOD COUNT 3.94 x10^6/uL (4.30-5.70); RED CELL DISTRIBUTION WIDTH 12.3 % (11.5-14.5); WHITE BLOOD COUNT 13.9 x10^3/uL (4.0-11.0)
[2019-05-15 05:00] LABS: ALBUMIN 2.1 g/dL (3.4-5.0); ALBUMIN/GLOBULIN RATIO 0.6 (1.0-1.7); CALCIUM 8.3 mg/dL (8.5-10.1); CREATININE 0.5 mg/dL (0.7-1.3); POTASSIUM 3.3 mmol/L (3.5-5.1); TOTAL BILIRUBIN 0.3 mg/dL (0.2-1.0); TOTAL PROTEIN 5.4 g/dL (6.4-8.2)
[2019-05-15] MEDS: CLINDAMYCIN 600MG PREMIX 50 ML IV SCH ×3 (05:39→21:20)
[2019-05-15 07:30] VITALS: BP 125/86
[2019-05-15] MEDS: INSULIN LISPRO 300 UNITS/3 ML VIAL. SQ SCH ×7 (07:56→21:00)
[2019-05-15] MEDS: HYDROcodone/APAP 7.5/325MG 1 TAB TABLET PO PRN ×2 (08:49→17:02)
[2019-05-15] MEDS: LACTOBACILLUS RHAMNOSUS GG 1 CAPSULE. PO SCH ×2 (08:49→21:00)
[2019-05-15] MEDS: POTASSIUM & SODIUM PHOSPHATES PACKET. PO SCH (08:49)
--- NOTE | 2019-05-15 10:57 | PDOC ---
PROGRESS NOTES Chief Complaint Chief Complaint impression DKA DM1 Hypophosphatemia Hypokalemia Hypomagnesemia Left mandibular cellulitis with severe dental caries - CT 05/13 Left mandible most posterior molar has a dental francisco and periapical lytic lesion disrupting the medial alveolar mandible cortex consistent with abscess with an associated 3 cm soft tissue abscess at the left sublingual space and submandibular space extending beneath the mandible tooth deep aspect of the masseter muscle which is enlarged which could be indicative of myositis.. HYPOKALEMIA, ON IV REPLACEMENT 05/[address] snow History of Present Illness History of Present Illness Mr Cortes is a 29 yo M w/ PMHx DM1 p/w abdominal pain via his mother with associated nausea and vomiting and dental pain. He was evaluated on 05/10/19 for jaw pain, given clindamycin and left the ED. 2 visits prior the patient has been prescribed doxycycline for a left dental i nfection which has become much worse. CT neck - Visualized intracranial structures are unremarkable. Complete opacification of the left maxillary sinus. Extensive edema within the fat surrounding the left mandible. A discrete focal fluid collection is not identified. Numerous enlarged upper cervical lymph nodes are noted bilaterally greater on the left. Nasopharynx, oropharynx, hypopharynx and larynx are patent. Thyroid and salivary glands are unremarkable. Visualized lung apices are clear. No suspicious osseous lesions or acute fractures. IMPRESSION: 1. Soft tissue edema surrounding the left mandible without a discrete fluid col lection identified. 2. Numerous upper cervical lymph nodes that are enlarged greater on the left, likely reactive to the above process. 3. Sinus disease as described Admitted to ICU in DKA on insulin drip this visit. 05/12 Transferred from ICU . Phos 1.6, K3.5, Mg 1.8. Dental pain severe, but abdominal pain improved. Gap closed. Unable to open his mouth greater than 2cm. Has some lower left neck pain. 05/14 K REPLACED IV , consult dr SNOW oral surgery , plan CT SOFT TISSUES OF NECK, constant bedside pulse oximetry, switch clindamycin to iv MAY NEED TRANSFER TO [facility] [place] 37 min pt exam, chart review, > 50% of time spent with exam, chart review, pt care coordination Vitals Vitals Vital Signs Date Time Temp Pulse Resp B/P (MAP) Pulse Ox O2 Delivery O2 Flow Rate FiO2 05/15/19 10:03 96 Room Air 05/15/19 07:30 98.8 71 16 125/86 (99) 98.8 Physical Exam General: Alert, Oriented X3, Cooperative, mild distress Heart: Regular rate, Normal S1, Normal S2 Lungs: Clear Abdomen: Normal bowel sounds, Soft, No tenderness, No hepatosplenomegaly Extremities: No clubbing, No cyanosis, No edema Skin: No significant lesion Labs LABS CT neck with contrast HISTORY: Left facial swelling, dental infection, abscess. Contrast: 70 mL Omnipaque 300 intravenous contrast. FINDINGS: The left mandible most posterior molar demonstrates a dense appearing and periapical lucency which erodes and focally disrupt the medial alveolar cortex of the mandible consistent with a periapical abscess, there is surrounding periosteal soft tissue abscess within the floor the mouth lateral the time with a rim-enhancing loculated fluid collection which measures 3.5 cm AP by 3 cm transverse by 2 cm craniocaudal, the collection extends medial and inferior of the angle of the mandible to the deep aspect of the left masseter muscle which is asymmetrically enlarged and edematous which could indicate myositis or reactive changes. There is also soft tissue edema and swelling at the lower aspect of the left leach tank tender pterygoid muscles which contributes to mild narrowing of the airway at the left aspect of the pharynx. Enlarged left submandibular hypervascular lymph nodes measuring up to 2 cm likely lymphadenitis as well as upper jugular chain adenitis. The nasopharynx, thyroid, larynx and lung bases are unremarkable. There is marked focal narrowing of the left internal jugular vein due to mass effect and swelling compressing the vein without a thrombus evident. Left maxillary sinus cyst. Bone lysis stranding the mandible central incisors. IMPRESSION: 1. Left mandible most posterior molar has a dental francisco and periapical lytic lesion disrupting the medial alveolar mandible cortex consistent with abscess with an associated 3 cm soft tissue abscess at the left sublingual space and submandibular space extending beneath the mandible to the deep aspect of the masseter muscle which is enlarged which could be indicative of myositis. 2. Enlarged hypervascular left submandibular and jugular chain lymph nodes consistent with lymphadenitis. 3. There is mild narrowing of the pharynx due to the edema and swelling of the tissues surrounding the abscess. 4. Periapical lucencies about the mandible central incisors could represent additional periapical cysts or abscess. Exposure: One or more of the following individualized dose reduction techniques were utilized for this examination: 1. Automated exposure control 2. Adjustment of the mA and/or kV according to patient size 3. Use of iterative reconstruction technique Electronically signed by: Rosa Maria Singh MD (05/14/2019 3:17 PM) [id number] DICTATED and SIGNED BY: ROSA MARIA SINGH MD DATE: 05/14/19 1517 Laboratory Tests Test 05/14/19 11:46 05/14/19 16:48 05/14/19 20:53 05/15/19 04:00 Glucose (Fingerstick) 135 mg/dL (70-99) 252 mg/dL (70-99) 148 mg/dL (70-99) White Blood Count 13.9 x10^3/uL (4.0-11.0) Red Blood Count 3.94 x10^6/uL (4.30-5.70) Hemoglobin 11.7 g/dL (13.0-17.5) Hematocrit 34.0 % (39.0-53.0) Mean Corpuscular Volume 86 fL (79-100) Mean Corpuscular Hemoglobin 30 pg (25-35) Mean Corpuscular Hemoglobin Concent 34 g/dL (31-37) Red Cell Distribution Width 12.3 % (11.5-14.5) Platelet Count 396 x10^3/uL (140-400) Neutrophils (%) (Auto) 69 % (31-73) Lymphocytes (%) (Auto) 17 % (24-48) Monocytes (%) (Auto) 10 % (0-9) Eosinophils (%) (Auto) 3 % (0-3) Basophils (%) (Auto) 0 % (0-3) Neutrophils # (Auto) 9.7 x10^3/uL (1.8-7.7) Lymphocytes # (Auto) 2.4 x10^3/uL (1.0-4.8) Monocytes # (Auto) 1.4 x10^3/uL (0.0-1.1) Eosinophils # (Auto) 0.4 x10^3/uL (0.0-0.7) Basophils # (Auto) 0.1 x10^3/uL (0.0-0.2) Sodium Level 141 mmol/L (136-145) Potassium Level 3.3 mmol/L (3.5-5.1) Chloride Level 103 mmol/L (98-107) Carbon Dioxide Level 31 mmol/L (21-32) Anion Gap 7 (6-14) Blood Urea Nitrogen 5 mg/dL (8-26) Creatinine 0.5 mg/dL (0.7-1.3) Estimated GFR (Cockcroft-Gault) 198.0 BUN/Creatinine Ratio 10 (6-20) Glucose Level 134 mg/dL (70-99) Calcium Level 8.3 mg/dL (8.5-10.1) Total Bilirubin 0.3 mg/dL (0.2-1.0) Aspartate Amino Transf (AST/SGOT) 9 U/L (15-37) Alanine Aminotransferase (ALT/SGPT) 12 U/L (16-63) Alkaline Phosphatase 85 U/L (46-116) Total Protein 5.4 g/dL (6.4-8.2) Albumin 2.1 g/dL (3.4-5.0) Albumin/Globulin Ratio 0.6 (1.0-1.7) Test 05/15/19 07:48 Glucose (Fingerstick) 272 mg/dL (70-99) Assessment and Plan Assessmemt and Plan Problems Medical Problems: (1) Dental infection Status: Acute 1. Left mandible most posterior molar has a dental francisco and periapical lytic lesion disrupting the medial alveolar mandible cortex consistent with abscess with an associated 3 cm soft tissue abscess at the left sublingual space and submandibular space extending beneath the mandible to the deep aspect of the masseter muscle which is enlarged which could be indicative of myositis. 2. Enlarged hypervascular left submandibular and jugular chain lymph nodes consistent with lymphadenitis. Comment Review of Relevant I have reviewed the following items cinthia (where applicable) has been applied. Labs Laboratory Tests Test 05/13/19 11:53 05/13/19 17:26 05/13/19 20:52 05/14/19 04:40 Glucose (Fingerstick) 179 mg/dL (70-99) 181 mg/dL (70-99) 139 mg/dL (70-99) White Blood Count 11.2 x10^3/uL (4.0-11.0) Red Blood Count 3.89 x10^6/uL (4.30-5.70) Hemoglobin 11.5 g/dL (13.0-17.5) Hematocrit 33.4 % (39.0-53.0) Mean Corpuscular Volume 86 fL (79-100) Mean Corpuscular Hemoglobin 30 pg (25-35) Mean Corpuscular Hemoglobin Concent 35 g/dL (31-37) Red Cell Distribution Width 12.4 % (11.5-14.5) Platelet Count 329 x10^3/uL (140-400) Neutrophils (%) (Auto) 75 % (31-73) Lymphocytes (%) (Auto) 15 % (24-48) Monocytes (%) (Auto) 9 % (0-9) Eosinophils (%) (Auto) 1 % (0-3) Basophils (%) (Auto) 0 % (0-3) Neutrophils # (Auto) 8.4 x10^3/uL (1.8-7.7) Lymphocytes # (Auto) 1.7 x10^3/uL (1.0-4.8) Monocytes # (Auto) 1.0 x10^3/uL (0.0-1.1) Eosinophils # (Auto) 0.1 x10^3/uL (0.0-0.7) Basophils # (Auto) 0.0 x10^3/uL (0.0-0.2) Sodium Level 143 mmol/L (136-145) Potassium Level 2.8 mmol/L (3.5-5.1) Chloride Level 104 mmol/L (98-107) Carbon Dioxide Level 31 mmol/L (21-32) Anion Gap 8 (6-14) Blood Urea Nitrogen 10 mg/dL (8-26) Creatinine 0.5 mg/dL (0.7-1.3) Estimated GFR (Cockcroft-Gault) 198.0 BUN/Creatinine Ratio 20 (6-20) Glucose Level 169 mg/dL (70-99) Calcium Level 8.2 mg/dL (8.5-10.1) Total Bilirubin 0.4 mg/dL (0.2-1.0) Aspartate Amino Transf (AST/SGOT) 11 U/L (15-37) Alanine Aminotransferase (ALT/SGPT) 15 U/L (16-63) Alkaline Phosphatase 75 U/L (46-116) Total Protein 5.3 g/dL (6.4-8.2) Albumin 2.2 g/dL (3.4-5.0) Albumin/Globulin Ratio 0.7 (1.0-1.7) Test 05/14/19 07:37 05/14/19 11:46 05/14/19 16:48 05/14/19 20:53 Glucose (Fingerstick) 136 mg/dL (70-99) 135 mg/dL (70-99) 252 mg/dL (70-99) 148 mg/dL (70-99) Test 05/15/19 04:00 05/15/19 07:48 White Blood Count 13.9 x10^3/uL (4.0-11.0) Red Blood Count 3.94 x10^6/uL (4.30-5.70) Hemoglobin 11.7 g/dL (13.0-17.5) Hematocrit 34.0 % (39.0-53.0) Mean Corpuscular Volume 86 fL (79-100) Mean Corpuscular Hemoglobin 30 pg (25-35) Mean Corpuscular Hemoglobin Concent 34 g/dL (31-37) Red Cell Distribution Width 12.3 % (11.5-14.5) Platelet Count 396 x10^3/uL (140-400) Neutrophils (%) (Auto) 69 % (31-73) Lymphocytes (%) (Auto) 17 % (24-48) Monocytes (%) (Auto) 10 % (0-9) Eosinophils (%) (Auto) 3 % (0-3) Basophils (%) (Auto) 0 % (0-3) Neutrophils # (Auto) 9.7 x10^3/uL (1.8-7.7) Lymphocytes # (Auto) 2.4 x10^3/uL (1.0-4.8) Monocytes # (Auto) 1.4 x10^3/uL (0.0-1.1) Eosinophils # (Auto) 0.4 x10^3/uL (0.0-0.7) Basophils # (Auto) 0.1 x10^3/uL (0.0-0.2) Sodium Level 141 mmol/L (136-145) Potassium Level 3.3 mmol/L (3.5-5.1) Chloride Level 103 mmol/L (98-107) Carbon Dioxide Level 31 mmol/L (21-32) Anion Gap 7 (6-14) Blood Urea Nitrogen 5 mg/dL (8-26) Creatinine 0.5 mg/dL (0.7-1.3) Estimated GFR (Cockcroft-Gault) 198.0 BUN/Creatinine Ratio 10 (6-20) Glucose Level 134 mg/dL (70-99) Calcium Level 8.3 mg/dL (8.5-10.1) Total Bilirubin 0.3 mg/dL (0.2-1.0) Aspartate Amino Transf (AST/SGOT) 9 U/L (15-37) Alanine Aminotransferase (ALT/SGPT) 12 U/L (16-63) Alkaline Phosphatase 85 U/L (46-116) Total Protein 5.4 g/dL (6.4-8.2) Albumin 2.1 g/dL (3.4-5.0) Albumin/Globulin Ratio 0.6 (1.0-1.7) Glucose (Fingerstick) 272 mg/dL (70-99) Laboratory Tests Test 05/14/19 11:46 05/14/19 16:48 05/14/19 20:53 05/15/19 04:00 Glucose (Fingerstick) 135 mg/dL (70-99) 252 mg/dL (70-99) 148 mg/dL (70-99) White Blood Count 13.9 x10^3/uL (4.0-11.0) Red Blood Count 3.94 x10^6/uL (4.30-5.70) Hemoglobin 11.7 g/dL (13.0-17.5) Hematocrit 34.0 % (39.0-53.0) Mean Corpuscular Volume 86 fL (79-100) Mean Corpuscular Hemoglobin 30 pg (25-35) Mean Corpuscular Hemoglobin Concent 34 g/dL (31-37) Red Cell Distribution Width 12.3 % (11.5-14.5) Platelet Count 396 x10^3/uL (140-400) Neutrophils (%) (Auto) 69 % (31-73) Lymphocytes (%) (Auto) 17 % (24-48) Monocytes (%) (Auto) 10 % (0-9) Eosinophils (%) (Auto) 3 % (0-3) Basophils (%) (Auto) 0 % (0-3) Neutrophils # (Auto) 9.7 x10^3/uL (1.8-7.7) Lymphocytes # (Auto) 2.4 x10^3/uL (1.0-4.8) Monocytes # (Auto) 1.4 x10^3/uL (0.0-1.1) Eosinophils # (Auto) 0.4 x10^3/uL (0.0-0.7) Basophils # (Auto) 0.1 x10^3/uL (0.0-0.2) Sodium Level 141 mmol/L (136-145) Potassium Level 3.3 mmol/L (3.5-5.1) Chloride Level 103 mmol/L (98-107) Carbon Dioxide Level 31 mmol/L (21-32) Anion Gap 7 (6-14) Blood Urea Nitrogen 5 mg/dL (8-26) Creatinine 0.5 mg/dL (0.7-1.3) Estimated GFR (Cockcroft-Gault) 198.0 BUN/Creatinine Ratio 10 (6-20) Glucose Level 134 mg/dL (70-99) Calcium Level 8.3 mg/dL (8.5-10.1) Total Bilirubin 0.3 mg/dL (0.2-1.0) Aspartate Amino Transf (AST/SGOT) 9 U/L (15-37) Alanine Aminotransferase (ALT/SGPT) 12 U/L (16-63) Alkaline Phosphatase 85 U/L (46-116) Total Protein 5.4 g/dL (6.4-8.2) Albumin 2.1 g/dL (3.4-5.0) Albumin/Globulin Ratio 0.6 (1.0-1.7) Test 05/15/19 07:48 Glucose (Fingerstick) 272 mg/dL (70-99) Medications Current Medications Sodium Chloride 1,000 ml @ 1,000 mls/hr 1X ONCE IV Last administered on 05/10/19at 17:25; Start 05/10/19 at 17:00; Stop 05/10/19 at 17:59; Status DC Prochlorperazine Edisylate (Compazine) 10 mg 1X ONCE IV Last administered on 05/10/19at 17:26; Start 05/10/19 at 17:30; Stop 05/10/19 at 17:31; Status DC Prochlorperazine Edisylate (Compazine) 10 mg STK-MED ONCE .ROUTE ; Start 05/10/19 at 17:22; Stop 05/10/19 at 17:22; Status DC Sodium Chloride 1,000 ml @ 1,000 mls/hr 1X ONCE IV Last administered on 05/10/19at 18:33; Start 05/10/19 at 18:15; Stop 05/10/19 at 19:14; Status DC Insulin Human Regular 100 ml @ 0 mls/hr CONT PRN PRN IV PER PROTOCOL Last administered on 05/11/19at 08:09; Start 05/10/19 at 18:15; Stop 05/11/19 at 08:45; Status DC Potassium Chloride/Water 100 ml @ 100 mls/hr PRN Q1HR PRN IV SEE COMMENTS; Start 05/10/19 at 18:15; Status Cancel Ondansetron HCl (Zofran) 4 mg 1X ONCE IV Last administered on 05/10/19at 20:39; Start 05/10/19 at 19:00; Stop 05/10/19 at 19:01; Status DC Ondansetron HCl (Zofran) 4 mg PRN Q8HRS PRN IV NAUSEA/VOMITING; Start 05/10/19 at 19:45; Stop 05/11/19 at 19:44; Status DC Morphine Sulfate (Morphine Sulfate) 4 mg PRN Q2HR PRN IV PAIN Last administered on 05/11/19at 19:11; Start 05/10/19 at 19:45; Stop 05/11/19 at 19:44; Status DC Sodium Chloride 500 ml @ 500 mls/hr 1X ONCE IV ; Start 05/10/19 at 21:30; Stop 05/10/19 at 21:30; Status DC Sodium Chloride 1,000 ml @ 1,000 mls/hr Q1H IV Last administered on 05/10/19at 21:39; Start 05/10/19 at 21:19; Stop 05/10/19 at 22:18; Status DC Sodium Chloride 1,000 ml @ 250 mls/hr Q4H IV Last administered on 05/10/19at 21:40; Start 05/10/19 at 21:22; Stop 05/11/19 at 00:48; Status DC Clindamycin Phosphate 50 ml @ 100 mls/hr 1X ONCE IV Last administered on 05/10/19at 21:57; Start 05/10/19 at 21:45; Stop 05/10/19 at 22:14; Status DC Potassium Chloride/Water 100 ml @ 100 mls/hr PRN Q1HR PRN IV SEE COMMENTS; Start 05/11/19 at 00:45 Dextrose/Sodium Chloride 1,000 ml @ 250 mls/hr Q4H IV Last administered on 05/11/19at 04:18; Start 05/11/19 at 00:45; Stop 05/11/19 at 14:20; Status DC Potassium Phosphate 10 mmol/ Sodium Chloride 103.3333 ml @ 51.667 m... Q2H IV Last administered on 05/11/19at 04:18; Start 05/11/19 at 01:00; Stop 05/11/19 at 04:59; Status DC Potassium Chloride/Water 100 ml @ 100 mls/hr Q1H IV Last administered on 05/11/19at 03:19; Start 05/11/19 at 01:45; Stop 05/11/19 at 03:44; Status DC Insulin Glargine (Lantus Syringe) 20 unit QHS SQ Last administered on 05/14/19at 21:00; Start 05/11/19 at 21:00 Insulin Human Lispro (HumaLOG) 0-5 UNITS TIDWMEALS SQ ; Start 05/11/19 at 12:00; Status UNV Insulin Human Lispro (HumaLOG) 0-9 UNITS TIDWMEALS SQ Last administered on 05/12/19at 11:41; Start 05/11/19 at 12:00; Stop 05/12/19 at 16:46; Status DC Dextrose (Dextrose 50%-Water Syringe) 12.5 gm PRN Q15MIN PRN IV SEE COMMENTS; Start 05/11/19 at 08:45 Levofloxacin/ Dextrose 100 ml @ 100 mls/hr Q24H IV Last administered on 05/14/19at 15:32; Start 05/11/19 at 12:00 Throat Lozenges (Cepacol Sore Throat Lozenge) 1 emily PRN Q2HRS PRN PO SORE THROAT Last administered on 05/11/19at 19:07; Start 05/11/19 at 12:00 Lactobacillus Rhamnosus (Culturelle) 1 cap BID PO Last administered on 05/15/19 08:49; Start 05/11/19 at 21:00 Acetaminophen (Tylenol) 650 mg PRN Q6HRS PRN PO MILD PAIN/TEMP Last administered on 05/14/19 09:21; Start 05/11/19 at 20:30 Ketorolac Tromethamine (Toradol 30mg Vial) 30 mg PRN Q6HRS PRN IVP MILD PAIN 1- 3 Last administered on 05/15/19 06:54; Start 05/11/19 at 20:30; Stop 05/16/19 at 20:29 Tramadol HCl (Ultram) 50 mg PRN Q6HRS PRN PO MODERATE PAIN Last administered on 05/14/19 00:03; Start 05/11/19 at 20:30 Lidocaine HCl (Viscous Lidocaine) 15 ml PRN Q4HRS PRN SWSW MOUTH PAIN Last administered on 05/11/19 22:15; Start 05/11/19 at 20:45 Magnesium Sulfate 50 ml @ 25 mls/hr 1X ONCE IV Last administered on 05/12/19 09:02; Start 05/12/19 at 08:00; Stop 05/12/19 at 09:59; Status DC Potassium Phos/ Sodium Phos (Phos-Nak) 1 pkt DAILY PO Last administered on 05/15/19 08:49; Start 05/12/19 at 09:00 Potassium Chloride (Klor-Con) 40 meq 1X ONCE PO Last administered on 05/12/19 09:01; Start 05/12/19 at 08:00; Stop 05/12/19 at 08:08; Status DC Ondansetron HCl (Zofran) 4 mg PRN Q4HRS PRN IVP NAUSEA/VOMITING Last administered on 05/13/19 04:05; Start 05/12/19 at 09:30 Clindamycin HCl (Cleocin) 300 mg TID PO Last administered on 05/14/19at 15:32; Start 05/12/19 at 14:00; Stop 05/14/19 at 17:41; Status DC Acetaminophen/ Hydrocodone Bitart (Lortab 7.5/325) 1 tab PRN Q6HRS PRN PO SEVERE PAIN Last administered on 05/15/19at 08:49; Start 05/12/19 at 16:45 Morphine Sulfate (Morphine Sulfate) 4 mg PRN Q8HRS PRN IV MODERATE PAIN, SEVERE PAIN Last administered on 05/12/19at 16:54; Start 05/12/19 at 16:45 Insulin Human Lispro (HumaLOG) 10 units TIDWMEALS SQ Last administered on 05/15/19at 07:56; Start 05/12/19 at 17:00 Insulin Human Lispro (HumaLOG) 0-9 UNITS TIDACHC SQ Last administered on 05/15/19at 07:57; Start 05/12/19 at 16:45 Potassium Chloride/Water 100 ml @ 100 mls/hr Q1H IV Last administered on 05/14/19at 09:00; Start 05/14/19 at 07:00; Stop 05/14/19 at 09:59; Status DC Sodium Chloride 1,000 ml @ 125 mls/hr 1X ONCE IV Last administered on 05/14/19at 15:33; Start 05/14/19 at 13:15; Stop 05/14/19 at 21:14; Status DC Iohexol (Omnipaque 300 Mg/ml) 70 ml 1X ONCE IV Last administered on 05/14/19at 14:15; Start 05/14/19 at 14:15; Stop 05/14/19 at 14:16; Status DC Info (CONTRAST GIVEN -- Rx MONITORING) 1 each PRN DAILY PRN MC SEE COMMENTS; Start 05/14/19 at 14:15; Stop 05/16/19 at 14:14 Clindamycin Phosphate 50 ml @ 100 mls/hr Q8HRS IV Last administered on 05/15/19at 05:39; Start 05/14/19 at 22:00 Active Scripts Active Ondansetron Hcl 4 Mg Tablet 1 Tab PO PRN Q6HRS PRN 3 Days Clindamycin Hcl 150 Mg Capsule 450 Mg PO TID 7 Days Doxycycline Hyclate 100 Mg Capsule 1 Cap PO BID 10 Days Ciprofloxacin Hcl 2.5 Ml Drops 1 Drop OU QID 7 Days Humalog (Insulin Lispro) 100 Unit/1 Ml Insuln.pen 10 Units SQ TIDWMEALS 30 Days Lantus Solostar (Insulin Glargine,Hum.rec.anlog) 100 Unit/1 Ml Insuln.pen 20 Units SQ QHS 30 Days Vitals/I & O Vital Sign - Last 24 Hours 05/14/19 05/14/19 05/14/19 05/14/19 11:47 11:59 13:00 15:59 Temp 98.0 98.1 98.0 98.1 Pulse 73 90 Resp 19 20 20 20 B/P (MAP) 143/96 (112) 139/95 (110) Pulse Ox 100 100 95 100 O2 Delivery Room Air Room Air Room Air Room Air 05/14/19 05/14/19 05/14/19 05/14/19 19:00 20:00 20:51 23:00 Temp 99.0 99.3 99.0 99.3 Pulse 81 83 Resp 20 20 B/P (MAP) 115/82 (93) 118/80 (93) Pulse Ox 98 98 98 O2 Delivery Room Air Room Air Room Air Room Air 05/15/19 05/15/19 05/15/19 05/15/19 03:00 07:30 08:00 08:49 Temp 98.6 98.8 98.6 98.8 Pulse 71 71 Resp 20 16 B/P (MAP) 127/90 (102) 125/86 (99) Pulse Ox 98 96 O2 Delivery Room Air Room Air Room Air Room Air 05/15/19 10:03 Pulse Ox 96 O2 Delivery Room Air Intake and Output 05/14/19 05/14/19 05/15/19 15:00 23:00 07:00 Intake Total 200 ml 370 ml 650 ml Balance 200 ml 370 ml 650 ml JOSE BURNS MD May 15, 2019 10:57
[2019-05-15 11:15] VITALS: BP 114/78
[2019-05-15] MEDS: traMADol 50 MG TABLET PO PRN ×2 (11:43→19:45)
[2019-05-15 15:00] VITALS: BP 126/88
[2019-05-15] MEDS ORDERED: POTASSIUM CHLORIDE 20 MEQ TABLET.ER. PO ONE (15:45)
--- NOTE | 2019-05-15 15:45 | NUR ---
SW following. Discussed with RN, pt from home. Dr. Jorgensen requesting transfer to [facility] for an oral surgeon. SW contacted [facility] to initiate transfer, provided Dr. Jorgensen's phone number, faxed pt facesheet. Advised [facility] to contact pt's RN if calling after 1630 when SW is no longer here. RN notified. SW will continue to follow. Addendum: 05/15/19 at 1626 by GARY CROCKER SW Nuria at [facility] contacted SW to advise they do not have oral surgeons who round at their hospital anymore and they normally send dental emergencies to . Dr. Do has reached out to Dr. Jorgensen and awaiting a call back due to Dr. Jorgensen seeing pt's. MARIELA will continue to follow and await further instructions per Dr. Jorgensen. Nuria had also contacted pt's RN to notify of situation.
--- NOTE | 2019-05-15 18:32 | NUR ---
SW started process of hospital to hospital transfer to [facility], however they called me and let me know they do not have a oral surgeon. They told me that we would probably need to transfer to . I have paged the doctor to let him know, still awaiting call back. Will continue to monitor.
[2019-05-15 19:00] VITALS: BP 142/95
[2019-05-15] MEDS: INSULIN GLARGINE SYRINGE. SQ SCH (21:29)
[2019-05-15 23:00] VITALS: BP 136/95
[2019-05-16] MEDS: KETOROLAC 30 MG/ML VIAL. IVP PRN ×2 (00:16→07:33)
[2019-05-16 03:00] VITALS: BP 129/88
[2019-05-16 04:46] LABS: BASO # 0.1 x10^3/uL (0.0-0.2); BASO % 0 % (0-3); EOS # 0.4 x10^3/uL (0.0-0.7); EOS % 3 % (0-3); HEMATOCRIT 35.4 % (39.0-53.0); LYMPH # 2.4 x10^3/uL (1.0-4.8); LYMPH % 16 % (24-48); MEAN CORPUSCULAR HEMOGLOBIN 30 pg (25-35); MEAN CORPUSCULAR HGB CONC 34 g/dL (31-37); MEAN CORPUSCULAR VOLUME 87 fL (79-100); MONO # 1.4 x10^3/uL (0.0-1.1); MONO % 9 % (0-9); NEUT # 10.7 x10^3/uL (1.8-7.7); NEUT % 72 % (31-73); PLATELET COUNT 439 x10^3/uL (140-400); RED BLOOD COUNT 4.07 x10^6/uL (4.30-5.70); RED CELL DISTRIBUTION WIDTH 12.1 % (11.5-14.5); WHITE BLOOD COUNT 14.9 x10^3/uL (4.0-11.0)
[2019-05-16 05:05] LABS: CALCIUM 8.7 mg/dL (8.5-10.1); CREATININE 0.6 mg/dL (0.7-1.3); GFR 160.4
[2019-05-16] MEDS: CLINDAMYCIN 600MG PREMIX 50 ML IV SCH (05:29)
[2019-05-16 07:00] VITALS: BP 119/76
[2019-05-16] MEDS ORDERED: POTASSIUM CHLORIDE 20 MEQ TABLET.ER. PO SCH (08:00)
[2019-05-16] MEDS: LACTOBACILLUS RHAMNOSUS GG 1 CAPSULE. PO SCH (09:40)
[2019-05-16] MEDS: INSULIN LISPRO 300 UNITS/3 ML VIAL. SQ SCH ×2 (09:40)
[2019-05-16] MEDS: POTASSIUM & SODIUM PHOSPHATES PACKET. PO SCH (09:41)
--- NOTE | 2019-05-16 09:45 | NUR ---
AMA Note: Patient decided to leave AMA this morning. Patient stated "we are not dong anything to treat his dental infection, he would rather go home and take care of it himself." Patient was told process was stated yesterday for him to transfer, but [facility] did not have an oral surgeon and would need to go to . Patient stated he was not going to wait any longer and he would leave here and go to himself. Patient refused all his morning medication, stated he couldn't open his mouth enough to get pills in his mouth, also, he feels as if all the drainage is getting stuck in his throat. This RN offered patient to stay a few hours and see what [facility] would say, patient stated no he was calling his to come get him and take him to . Patients IV's were discontinued per ENGINEERING MGR without any complications, patient signed AMA form and RIVKA Carrillo walked him to the main entrance, where his was waiting for him. Dr. Jorgensen was made aware as well as Nursing Barbecue Cook and security. Patient took all personal belongings with him.
--- NOTE | 2019-05-16 10:26 | PDOC ---
PROGRESS NOTES Chief Complaint Chief Complaint discharge dx DKA DM1 Hypophosphatemia Hypokalemia Hypomagnesemia Left mandibular cellulitis with severe dental caries - CT 05/13 Left mandible most posterior molar has a dental francisco and periapical lytic lesion disrupting the medial alveolar mandible cortex consistent with a bscess with an associated 3 cm soft tissue abscess at the left sublingual space and submandibular space extending beneath the mandible tooth deep aspect of the masseter muscle which is enlarged which could be indicative of myositis.. 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 He was evaluated on 05/10/19 for jaw pain, given clindamycin and left the ED. 2 visits prior the patient has been prescribed doxycycline for a left dental infection which has become much worse. CT neck - Visualized intracranial structures are unremarkable. Complete opacification of the left maxillary sinus. Extensive edema within the fat surrounding the left mandible. A discrete focal fluid collection is not identified. Numerous enlarged upper cervical lymph nodes are noted bilaterally greater on the left. Nasopharynx, oropharynx, hypopharynx and larynx are patent. Thyroid and salivary glands are unremarkable. Visualized lung apices are clear. No suspicious osseous lesions or acute fractures. IMPRESSION: 1. Soft tissue edema surrounding the left mandible without a discrete fluid collection identified. 2. Numerous upper cervical lymph nodes that are enlarged greater on the left, likely reactive to the above process. 3. Sinus disease as described Admitted to ICU in DKA on insulin drip this visit. 05/12 Transferred from ICU . Phos 1.6, K3.5, Mg 1.8. Dental pain severe, but abdominal pain improved. Gap closed. Unable to open his mouth greater than 2cm. Has some lower left neck pain. 05/14 K REPLACED IV , consult dr SNOW oral surgery , plan CT SOFT TISSUES OF NEC K, constant bedside pulse oximetry, switch clindamycin to iv MAY NEED TRANSFER TO [facility] [place] 37 min pt exam, chart review, > 50% of time spent with exam, chart review, pt care coordination Vitals Vitals Vital Signs Date Time Temp Pulse Resp B/P (MAP) Pulse Ox O2 Delivery O2 Flow Rate FiO2 05/16/19 09:50 98.9 98.9 05/16/19 07:45 Room Air 05/16/19 07:00 88 16 119/76 (90) 94 Physical Exam General: Alert, Oriented X3, Cooperative, mild distress Heart: Regular rate, Normal S1, Normal S2 Lungs: Clear Abdomen: Normal bowel sounds, Soft, No tenderness, No hepatosplenomegaly Extremities: No clubbing, No cyanosis, No edema Skin: No significant lesion Labs LABS Laboratory Tests Test 05/15/19 11:32 05/15/19 16:44 05/15/19 21:14 05/16/19 04:05 Glucose (Fingerstick) 169 mg/dL (70-99) 121 mg/dL (70-99) 191 mg/dL (70-99) White Blood Count 14.9 x10^3/uL (4.0-11.0) Red Blood Count 4.07 x10^6/uL (4.30-5.70) Hemoglobin 12.0 g/dL (13.0-17.5) Hematocrit 35.4 % (39.0-53.0) Mean Corpuscular Volume 87 fL (79-100) Mean Corpuscular Hemoglobin 30 pg (25-35) Mean Corpuscular Hemoglobin Concent 34 g/dL (31-37) Red Cell Distribution Width 12.1 % (11.5-14.5) Platelet Count 439 x10^3/uL (140-400) Neutrophils (%) (Auto) 72 % (31-73) Lymphocytes (%) (Auto) 16 % (24-48) Monocytes (%) (Auto) 9 % (0-9) Eosinophils (%) (Auto) 3 % (0-3) Basophils (%) (Auto) 0 % (0-3) Neutrophils # (Auto) 10.7 x10^3/uL (1.8-7.7) Lymphocytes # (Auto) 2.4 x10^3/uL (1.0-4.8) Monocytes # (Auto) 1.4 x10^3/uL (0.0-1.1) Eosinophils # (Auto) 0.4 x10^3/uL (0.0-0.7) Basophils # (Auto) 0.1 x10^3/uL (0.0-0.2) Sodium Level 137 mmol/L (136-145) Potassium Level 4.0 mmol/L (3.5-5.1) Chloride Level 101 mmol/L (98-107) Carbon Dioxide Level 31 mmol/L (21-32) Anion Gap 5 (6-14) Blood Urea Nitrogen 6 mg/dL (8-26) Creatinine 0.6 mg/dL (0.7-1.3) Estimated GFR (Cockcroft-Gault) 160.4 Glucose Level 198 mg/dL (70-99) Calcium Level 8.7 mg/dL (8.5-10.1) Test 05/16/19 07:41 Glucose (Fingerstick) 217 mg/dL (70-99) Assessment and Plan Assessmemt and Plan Problems Medical Problems: (1) Dental infection Status: Acute Comment Review of Relevant I have reviewed the following items cinthia (where applicable) has been applied. Labs Laboratory Tests Test 05/14/19 11:46 05/14/19 16:48 05/14/19 20:53 05/15/19 04:00 Glucose (Fingerstick) 135 mg/dL (70-99) 252 mg/dL (70-99) 148 mg/dL (70-99) White Blood Count 13.9 x10^3/uL (4.0-11.0) Red Blood Count 3.94 x10^6/uL (4.30-5.70) Hemoglobin 11.7 g/dL (13.0-17.5) Hematocrit 34.0 % (39.0-53.0) Mean Corpuscular Volume 86 fL (79-100) Mean Corpuscular Hemoglobin 30 pg (25-35) Mean Corpuscular Hemoglobin Concent 34 g/dL (31-37) Red Cell Distribution Width 12.3 % (11.5-14.5) Platelet Count 396 x10^3/uL (140-400) Neutrophils (%) (Auto) 69 % (31-73) Lymphocytes (%) (Auto) 17 % (24-48) Monocytes (%) (Auto) 10 % (0-9) Eosinophils (%) (Auto) 3 % (0-3) Basophils (%) (Auto) 0 % (0-3) Neutrophils # (Auto) 9.7 x10^3/uL (1.8-7.7) Lymphocytes # (Auto) 2.4 x10^3/uL (1.0-4.8) Monocytes # (Auto) 1.4 x10^3/uL (0.0-1.1) Eosinophils # (Auto) 0.4 x10^3/uL (0.0-0.7) Basophils # (Auto) 0.1 x10^3/uL (0.0-0.2) Sodium Level 141 mmol/L (136-145) Potassium Level 3.3 mmol/L (3.5-5.1) Chloride Level 103 mmol/L (98-107) Carbon Dioxide Level 31 mmol/L (21-32) Anion Gap 7 (6-14) Blood Urea Nitrogen 5 mg/dL (8-26) Creatinine 0.5 mg/dL (0.7-1.3) Estimated GFR (Cockcroft-Gault) 198.0 BUN/Creatinine Ratio 10 (6-20) Glucose Level 134 mg/dL (70-99) Calcium Level 8.3 mg/dL (8.5-10.1) Total Bilirubin 0.3 mg/dL (0.2-1.0) Aspartate Amino Transf (AST/SGOT) 9 U/L (15-37) Alanine Aminotransferase (ALT/SGPT) 12 U/L (16-63) Alkaline Phosphatase 85 U/L (46-116) Total Protein 5.4 g/dL (6.4-8.2) Albumin 2.1 g/dL (3.4-5.0) Albumin/Globulin Ratio 0.6 (1.0-1.7) Test 05/15/19 07:48 05/15/19 11:32 05/15/19 16:44 05/15/19 21:14 Glucose (Fingerstick) 272 mg/dL (70-99) 169 mg/dL (70-99) 121 mg/dL (70-99) 191 mg/dL (70-99) Test 05/16/19 04:05 05/16/19 07:41 White Blood Count 14.9 x10^3/uL (4.0-11.0) Red Blood Count 4.07 x10^6/uL (4.30-5.70) Hemoglobin 12.0 g/dL (13.0-17.5) Hematocrit 35.4 % (39.0-53.0) Mean Corpuscular Volume 87 fL (79-100) Mean Corpuscular Hemoglobin 30 pg (25-35) Mean Corpuscular Hemoglobin Concent 34 g/dL (31-37) Red Cell Distribution Width 12.1 % (11.5-14.5) Platelet Count 439 x10^3/uL (140-400) Neutrophils (%) (Auto) 72 % (31-73) Lymphocytes (%) (Auto) 16 % (24-48) Monocytes (%) (Auto) 9 % (0-9) Eosinophils (%) (Auto) 3 % (0-3) Basophils (%) (Auto) 0 % (0-3) Neutrophils # (Auto) 10.7 x10^3/uL (1.8-7.7) Lymphocytes # (Auto) 2.4 x10^3/uL (1.0-4.8) Monocytes # (Auto) 1.4 x10^3/uL (0.0-1.1) Eosinophils # (Auto) 0.4 x10^3/uL (0.0-0.7) Basophils # (Auto) 0.1 x10^3/uL (0.0-0.2) Sodium Level 137 mmol/L (136-145) Potassium Level 4.0 mmol/L (3.5-5.1) Chloride Level 101 mmol/L (98-107) Carbon Dioxide Level 31 mmol/L (21-32) Anion Gap 5 (6-14) Blood Urea Nitrogen 6 mg/dL (8-26) Creatinine 0.6 mg/dL (0.7-1.3) Estimated GFR (Cockcroft-Gault) 160.4 Glucose Level 198 mg/dL (70-99) Calcium Level 8.7 mg/dL (8.5-10.1) Glucose (Fingerstick) 217 mg/dL (70-99) Laboratory Tests Test 05/15/19 11:32 05/15/19 16:44 05/15/19 21:14 05/16/19 04:05 Glucose (Fingerstick) 169 mg/dL (70-99) 121 mg/dL (70-99) 191 mg/dL (70-99) White Blood Count 14.9 x10^3/uL (4.0-11.0) Red Blood Count 4.07 x10^6/uL (4.30-5.70) Hemoglobin 12.0 g/dL (13.0-17.5) Hematocrit 35.4 % (39.0-53.0) Mean Corpuscular Volume 87 fL (79-100) Mean Corpuscular Hemoglobin 30 pg (25-35) Mean Corpuscular Hemoglobin Concent 34 g/dL (31-37) Red Cell Distribution Width 12.1 % (11.5-14.5) Platelet Count 439 x10^3/uL (140-400) Neutrophils (%) (Auto) 72 % (31-73) Lymphocytes (%) (Auto) 16 % (24-48) Monocytes (%) (Auto) 9 % (0-9) Eosinophils (%) (Auto) 3 % (0-3) Basophils (%) (Auto) 0 % (0-3) Neutrophils # (Auto) 10.7 x10^3/uL (1.8-7.7) Lymphocytes # (Auto) 2.4 x10^3/uL (1.0-4.8) Monocytes # (Auto) 1.4 x10^3/uL (0.0-1.1) Eosinophils # (Auto) 0.4 x10^3/uL (0.0-0.7) Basophils # (Auto) 0.1 x10^3/uL (0.0-0.2) Sodium Level 137 mmol/L (136-145) Potassium Level 4.0 mmol/L (3.5-5.1) Chloride Level 101 mmol/L (98-107) Carbon Dioxide Level 31 mmol/L (21-32) Anion Gap 5 (6-14) Blood Urea Nitrogen 6 mg/dL (8-26) Creatinine 0.6 mg/dL (0.7-1.3) Estimated GFR (Cockcroft-Gault) 160.4 Glucose Level 198 mg/dL (70-99) Calcium Level 8.7 mg/dL (8.5-10.1) Test 05/16/19 07:41 Glucose (Fingerstick) 217 mg/dL (70-99) Medications Current Medications Sodium Chloride 1,000 ml @ 1,000 mls/hr 1X ONCE IV Last administered on 05/10/19at 17:25; Start 05/10/19 at 17:00; Stop 05/10/19 at 17:59; Status DC Prochlorperazine Edisylate (Compazine) 10 mg 1X ONCE IV Last administered on 05/10/19at 17:26; Start 05/10/19 at 17:30; Stop 05/10/19 at 17:31; Status DC Prochlorperazine Edisylate (Compazine) 10 mg STK-MED ONCE .ROUTE ; Start 05/10/19 at 17:22; Stop 05/10/19 at 17:22; Status DC Sodium Chloride 1,000 ml @ 1,000 mls/hr 1X ONCE IV Last administered on 05/10/19at 18:33; Start 05/10/19 at 18:15; Stop 05/10/19 at 19:14; Status DC Insulin Human Regular 100 ml @ 0 mls/hr CONT PRN PRN IV PER PROTOCOL Last administered on 05/11/19at 08:09; Start 05/10/19 at 18:15; Stop 05/11/19 at 08:45; Status DC Potassium Chloride/Water 100 ml @ 100 mls/hr PRN Q1HR PRN IV SEE COMMENTS; Start 05/10/19 at 18:15; Status Cancel Ondansetron HCl (Zofran) 4 mg 1X ONCE IV Last administered on 05/10/19at 20:39; Start 05/10/19 at 19:00; Stop 05/10/19 at 19:01; Status DC Ondansetron HCl (Zofran) 4 mg PRN Q8HRS PRN IV NAUSEA/VOMITING; Start 05/10/19 at 19:45; Stop 05/11/19 at 19:44; Status DC Morphine Sulfate (Morphine Sulfate) 4 mg PRN Q2HR PRN IV PAIN Last administered on 05/11/19at 19:11; Start 05/10/19 at 19:45; Stop 05/11/19 at 19:44; Status DC Sodium Chloride 500 ml @ 500 mls/hr 1X ONCE IV ; Start 05/10/19 at 21:30; Stop 05/10/19 at 21:30; Status DC Sodium Chloride 1,000 ml @ 1,000 mls/hr Q1H IV Last administered on 05/10/19at 21:39; Start 05/10/19 at 21:19; Stop 05/10/19 at 22:18; Status DC Sodium Chloride 1,000 ml @ 250 mls/hr Q4H IV Last administered on 05/10/19at 21:40; Start 05/10/19 at 21:22; Stop 05/11/19 at 00:48; Status DC Clindamycin Phosphate 50 ml @ 100 mls/hr 1X ONCE IV Last administered on 05/10/19at 21:57; Start 05/10/19 at 21:45; Stop 05/10/19 at 22:14; Status DC Potassium Chloride/Water 100 ml @ 100 mls/hr PRN Q1HR PRN IV SEE COMMENTS; Start 05/11/19 at 00:45 Dextrose/Sodium Chloride 1,000 ml @ 250 mls/hr Q4H IV Last administered on 05/11/19at 04:18; Start 05/11/19 at 00:45; Stop 05/11/19 at 14:20; Status DC Potassium Phosphate 10 mmol/ Sodium Chloride 103.3333 ml @ 51.667 m... Q2H IV Last administered on 05/11/19at 04:18; Start 05/11/19 at 01:00; Stop 05/11/19 at 04:59; Status DC Potassium Chloride/Water 100 ml @ 100 mls/hr Q1H IV Last administered on 05/11/19at 03:19; Start 05/11/19 at 01:45; Stop 05/11/19 at 03:44; Status DC Insulin Glargine (Lantus Syringe) 20 unit QHS SQ Last administered on 05/15/19at 21:29; Start 05/11/19 at 21:00 Insulin Human Lispro (HumaLOG) 0-5 UNITS TIDWMEALS SQ ; Start 05/11/19 at 12:00; Status UNV Insulin Human Lispro (HumaLOG) 0-9 UNITS TIDWMEALS SQ Last administered on 05/12/19at 11:41; Start 05/11/19 at 12:00; Stop 05/12/19 at 16:46; Status DC Dextrose (Dextrose 50%-Water Syringe) 12.5 gm PRN Q15MIN PRN IV SEE COMMENTS; Start 05/11/19 at 08:45 Levofloxacin/ Dextrose 100 ml @ 100 mls/hr Q24H IV Last administered on 05/15/19 11:39; Start 05/11/19 at 12:00 Throat Lozenges (Cepacol Sore Throat Lozenge) 1 emily PRN Q2HRS PRN PO SORE THROAT Last administered on 05/11/19 19:07; Start 05/11/19 at 12:00 Lactobacillus Rhamnosus (Culturelle) 1 cap BID PO Last administered on 05/15/19 08:49; Start 05/11/19 at 21:00 Acetaminophen (Tylenol) 650 mg PRN Q6HRS PRN PO MILD PAIN/TEMP Last administered on 05/14/19 09:21; Start 05/11/19 at 20:30 Ketorolac Tromethamine (Toradol 30mg Vial) 30 mg PRN Q6HRS PRN IVP MILD PAIN 1- 3 Last administered on 05/16/19 07:33; Start 05/11/19 at 20:30; Stop 05/16/19 at 20:29 Tramadol HCl (Ultram) 50 mg PRN Q6HRS PRN PO MODERATE PAIN Last administered on 05/15/19 19:45; Start 05/11/19 at 20:30 Lidocaine HCl (Viscous Lidocaine) 15 ml PRN Q4HRS PRN SWSW MOUTH PAIN Last administered on 05/11/19 22:15; Start 05/11/19 at 20:45 Magnesium Sulfate 50 ml @ 25 mls/hr 1X ONCE IV Last administered on 05/12/19 09:02; Start 05/12/19 at 08:00; Stop 05/12/19 at 09:59; Status DC Potassium Phos/ Sodium Phos (Phos-Nak) 1 pkt DAILY PO Last administered on 05/15/19 08:49; Start 05/12/19 at 09:00 Potassium Chloride (Klor-Con) 40 meq 1X ONCE PO Last administered on 05/12/19 09:01; Start 05/12/19 at 08:00; Stop 05/12/19 at 08:08; Status DC Ondansetron HCl (Zofran) 4 mg PRN Q4HRS PRN IVP NAUSEA/VOMITING Last administered on 05/13/19at 04:05; Start 05/12/19 at 09:30 Clindamycin HCl (Cleocin) 300 mg TID PO Last administered on 05/14/19at 15:32; Start 05/12/19 at 14:00; Stop 05/14/19 at 17:41; Status DC Acetaminophen/ Hydrocodone Bitart (Lortab 7.5/325) 1 tab PRN Q6HRS PRN PO SEVERE PAIN Last administered on 05/15/19at 17:02; Start 05/12/19 at 16:45 Morphine Sulfate (Morphine Sulfate) 4 mg PRN Q8HRS PRN IV MODERATE PAIN, SEVERE PAIN Last administered on 05/12/19at 16:54; Start 05/12/19 at 16:45 Insulin Human Lispro (HumaLOG) 10 units TIDWMEALS SQ Last administered on 05/15/19at 17:06; Start 05/12/19 at 17:00 Insulin Human Lispro (HumaLOG) 0-9 UNITS TIDACHC SQ Last administered on 05/15/19at 11:44; Start 05/12/19 at 16:45 Potassium Chloride/Water 100 ml @ 100 mls/hr Q1H IV Last administered on 05/14/19at 09:00; Start 05/14/19 at 07:00; Stop 05/14/19 at 09:59; Status DC Sodium Chloride 1,000 ml @ 125 mls/hr 1X ONCE IV Last administered on 05/14/19at 15:33; Start 05/14/19 at 13:15; Stop 05/14/19 at 21:14; Status DC Iohexol (Omnipaque 300 Mg/ml) 70 ml 1X ONCE IV Last administered on 05/14/19at 14:15; Start 05/14/19 at 14:15; Stop 05/14/19 at 14:16; Status DC Info (CONTRAST GIVEN -- Rx MONITORING) 1 each PRN DAILY PRN MC SEE COMMENTS; Start 05/14/19 at 14:15; Stop 05/16/19 at 14:14 Clindamycin Phosphate 50 ml @ 100 mls/hr Q8HRS IV Last administered on 05/16/19at 05:29; Start 05/14/19 at 22:00 Potassium Chloride (Klor-Con) 40 meq 1X ONCE PO Last administered on 05/15/19at 16:57; Start 05/15/19 at 15:45; Stop 05/15/19 at 15:46; Status DC Potassium Chloride (Klor-Con) 20 meq [id number] PO ; Start 05/16/19 at 08:00 Active Scripts Active Ondansetron Hcl 4 Mg Tablet 1 Tab PO PRN Q6HRS PRN 3 Days Clindamycin Hcl 150 Mg Capsule 450 Mg PO TID 7 Days Doxycycline Hyclate 100 Mg Capsule 1 Cap PO BID 10 Days Ciprofloxacin Hcl 2.5 Ml Drops 1 Drop OU QID 7 Days Humalog (Insulin Lispro) 100 Unit/1 Ml Insuln.pen 10 Units SQ TIDWMEALS 30 Days Lantus Solostar (Insulin Glargine,Hum.rec.anlog) 100 Unit/1 Ml Insuln.pen 20 Units SQ QHS 30 Days Vitals/I & O Vital Sign - Last 24 Hours 05/15/19 05/15/19 05/15/19 05/15/19 11:15 11:43 13:02 15:00 Temp 97.7 98.3 97.7 98.3 Pulse 78 65 Resp 14 16 B/P (MAP) 114/78 (90) 126/88 (101) Pulse Ox 97 97 100 O2 Delivery Room Air Room Air Room Air Room Air 05/15/19 05/15/19 05/15/19 05/15/19 17:02 18:28 19:00 19:45 Temp 98.0 98.0 Pulse 68 Resp 16 B/P (MAP) 142/95 (111) Pulse Ox 100 99 100 O2 Delivery Room Air Room Air Room Air 05/15/19 05/15/19 05/15/19 05/16/19 20:00 20:51 23:00 03:00 Temp 99.9 99.4 99.9 99.4 Pulse 93 74 Resp 16 16 B/P (MAP) 136/95 (109) 129/88 (102) Pulse Ox 100 96 98 O2 Delivery Room Air Room Air 05/16/19 05/16/19 05/16/19 07:00 07:45 09:50 Temp 100.3 98.9 100.3 98.9 Pulse 88 Resp 16 B/P (MAP) 119/76 (90) Pulse Ox 94 O2 Delivery Room Air Room Air Intake and Output 05/15/19 05/15/19 05/16/19 15:00 23:00 07:00 Intake Total 150 ml 100 ml 120 ml Balance 150 ml 100 ml 120 ml JOSE BURNS MD May 16, 2019 10:26
--- NOTE | 2019-05-16 11:16 | NUR ---
SW following. Discussed with RN, pt left AMA this morning. Pt reported he will go to [facility] himself. No further SW needs.
== END 2019-05-16 09:45 | disposition left against medical advice (07) | DRG 638 ==
LOC: ER 16:30 → 1 WEST ICU 18:09 → 5 SOUTH 05-11 14:18
PROVIDERS: ADMIT Family Medicine; ATTEND Family Medicine
DX: E10.10 Type 1 diabetes mellitus with ketoacidosis without coma (principal); L03.211 Cellulitis of face; K04.7 Periapical abscess without sinus; E83.39 Other disorders of phosphorus metabolism; E87.6 Hypokalemia; E83.42 Hypomagnesemia; K02.9 Dental caries, unspecified; I88.9 Nonspecific lymphadenitis, unspecified; F17.210 Nicotine dependence, cigarettes, uncomplicated; Z79.4 Long term (current) use of insulin; Z88.0 Allergy status to penicillin; Z88.8 Allergy status to other drugs, medicaments and biological substances; Z82.49 Family history of ischemic heart disease and other diseases of the circulatory system
CPT/HCPCS: 36415; 70491; 80048; 80053; 80069; 81001; 82962; 83605; 83735; 84100; 85007; 85025; 85027; 87641; 93005; 96361; 96374; 96375; J0780; J1815; J1885; J1956; J2270; J2405; J3475; J3480; J3490; J7030; J7042; Q9967; 99285-25; G0378